=== PATIENT | female | born 1960 | race African-American/Black ===

== ENCOUNTER → 2017-01-31 | Outpatient (CLI) | payer MEDICARE, OTHER ==
[2015-11-08 15:00] VITALS: BP 131/78
[~2017-01-31] MED LIST: AMLO5TAB2 PO; ATOR20TA58 PO; CEFP200T PO; GABA-585 PO; GABA-586 PO; LEVO50TA5 PO; LISI10TA2 PO; LISI40TA PO; MELO7.5T29 PO; METO-269 PO; OXYC-317 PO; OXYC-323 PO; SENN-37 PO
--- NOTE | 2017-01-31 13:07 | RAD ---
Indication pain. History of fracture. Pre-op. Possible knee replacement. AP oblique and lateral views of the left knee were obtained. Note is made of a similar examination 09/28/2014. Bony mineralization appears normal. Acute finding is not seen. Advanced degenerative changes are not apparent on plain films
== END | disposition home or self-care (01) ==
LOC: RAD 11:49
PROVIDERS: ATTEND Internal Medicine
DX: M25.562 Pain in left knee (principal)
CPT/HCPCS: 73562

== ENCOUNTER 2017-05-04 15:04 | Inpatient (IN) | payer MEDICARE ==
[~2017-05-04] VITALS: Ht 154.9 cm; Wt 58.1 kg
[2017-05-04] MEDS ORDERED: IV NORMAL SALINE 1000ML BAG 1,000 ML IV ONE ×2 (15:30→17:30)
--- NOTE | 2017-05-04 15:36 | PHYS DOC ---
Past Medical History Past Medical History: Arthritis, CVA, High Cholesterol, Hypertension, Hypothyroid, Other Additional Past Medical Histor: FX LEFT WRIST, Past Surgical History: Appendectomy, Additional Past Surgical Histo: Unknown Alcohol Use: None Drug Use: None Adult General Chief Complaint Chief Complaint: UPPER EXTREMITY PAIN HPI HPI Patient is a 56 year old F who presents with numbness and tingling to her left side. Patient has a history of a previous stroke 5 years ago that left deficits to her left side. Patient states her last known well was last night when she went to bed. Patient states she woke up this morning around 7 AM with numbness and tingling to her left lower leg. As the day progressed she had worsening numbness and tingling to her left lower leg and left upper arm. Our on 11 AM patient states she developed some numbness and tingling to her right hand that lasted for less than an hour. This afternoon the patient got concerned and therefore called EMS to be evaluated in the emergency room. Currently the emergency room patient complains of numbness to her left upper arm and left lower leg with resolution of the right hand. Patient declined any chest pain or shortness of breath. Patient declined any nausea/vomiting/diarrhea. Patient denied any fevers. Patient had no other complaints. Review of Systems Review of Systems GEN: Denies fevers, chills, sweats HEENT: Denies blurred vision, sore throat CV: Denies chest pain RESP: Denies shortness of air, cough GI: Denies n/v/d NEURO: Numbness and tingling to left side MSK: Denies weakness, joint pain/swelling All other systems were reviewed and found to be within normal limits, except as documented in this note. Current Medications Current Medications Current Medications Medications (Trade) Dose Ordered Sig/Demond Start Time Stop Time Status Last Admin Dose Admin Acetaminophen (Tylenol) 650 mg PRN Q4HRS PRN 05/04/17 17:30 05/05/17 17:29 Ceftriaxone Sodium 50 ml @ 100 mls/hr 1X ONCE 05/04/17 16:45 05/04/17 17:14 DC 05/04/17 16:57 100 MLS/HR Fentanyl Citrate (Fentanyl 2ml Vial) 50 mcg PRN Q2HR PRN 05/04/17 17:30 05/05/17 17:29 Info (Do NOT chart on this entry -- for MONITORING) 1 each PRN DAILY PRN 05/04/17 16:00 05/06/17 15:59 Iohexol (Omnipaque 300 Mg/ml) 75 ml 1X ONCE 05/04/17 16:00 05/04/17 16:01 DC 05/04/17 16:36 75 ML Ondansetron HCl (Zofran) 4 mg PRN Q8HRS PRN 05/04/17 17:30 05/05/17 17:29 Sodium Chloride 1,000 ml @ 1,000 mls/hr 1X ONCE 05/04/17 17:30 05/04/17 18:29 05/04/17 17:36 1,000 MLS/HR Vancomycin HCl (Vanco Per Pharmacy) 1 each PRN DAILY PRN 05/04/17 16:45 UNV Vancomycin HCl 1.25 gm/Dextrose/ Sodium Chloride 250 ml @ 166.667 mls/hr 1X ONCE 05/04/17 16:45 05/04/17 18:14 05/04/17 17:33 166.667 MLS/HR Allergies Allergies Allergies Coded Allergies Type Severity Reaction Last Updated Verified Penicillins Allergy Intermediate 11/07/15 Yes apple Allergy Intermediate 11/06/15 Yes orange juice Allergy Intermediate 11/15/14 Yes strawberry Allergy Intermediate 11/15/14 Yes Physical Exam Physical Exam GEN.: Mild distress. Alert and oriented. HEENT: Head is normocephalic, atraumatic, pupils are equal and reactive bilaterally, extraocular muscles intact bilaterally NECK: Supple. LUNGS: CTAB. HEART: Tachycardia, S1, S2 present. Peripheral pulses intact ABDOMEN: Soft, nontender. Positive bowel sounds. EXTREMITIES: Without any cyanosis. 3/5 muscle strength to the proximal and distal of the left upper extremity and left lower extremity NEUROLOGIC: Normal speech, normal tone, cranial nerves II through XII are grossly intact without any focal neurological deficits PSYCHIATRIC: Normal affect, normal mood. SKIN: No ulcerations Current Patient Data Vital Signs Vital Signs Date Time Temp Pulse Resp B/P (MAP) Pulse Ox O2 Delivery O2 Flow Rate FiO2 05/04/17 16:24 112 20 115/59 (77) 100 Room Air 05/04/17 15:05 97.3 97.3 Lab Values Laboratory Tests Test 05/04/17 13:12 05/04/17 13:15 05/04/17 15:07 05/04/17 15:27 White Blood Count 8.2 x10^3/uL (4.0-11.0) Red Blood Count 3.89 x10^6/uL (3.50-5.40) Hemoglobin 11.5 g/dL (12.0-15.5) L Hematocrit 35.0 % (36.0-47.0) L Mean Corpuscular Volume 90 fL (79-100) Mean Corpuscular Hemoglobin 29 pg (25-35) Mean Corpuscular Hemoglobin Concent 33 g/dL (31-37) Red Cell Distribution Width 19.5 % (11.5-14.5) H Platelet Count 655 x10^3/uL (140-400) H Neutrophils (%) (Auto) 76 % (31-73) H Lymphocytes (%) (Auto) 17 % (24-48) L Monocytes (%) (Auto) 6 % (0-9) Eosinophils (%) (Auto) 0 % (0-3) Basophils (%) (Auto) 0 % (0-3) Neutrophils # (Auto) 6.2 x10^3uL (1.8-7.7) Lymphocytes # (Auto) 1.4 x10^3/uL (1.0-4.8) Monocytes # (Auto) 0.5 x10^3/uL (0.0-1.1) Eosinophils # (Auto) 0.0 x10^3/uL (0.0-0.7) Basophils # (Auto) 0.0 x10^3/uL (0.0-0.2) Sodium Level 141 mmol/L (136-145) Potassium Level 3.6 mmol/L (3.5-5.1) Chloride Level 103 mmol/L (98-107) Carbon Dioxide Level 23 mmol/L (21-32) Anion Gap 15 (6-14) H Blood Urea Nitrogen 15 mg/dL (7-20) Creatinine 1.0 mg/dL (0.6-1.0) Estimated GFR (Cockcroft-Gault) 69.1 BUN/Creatinine Ratio 15 (6-20) Glucose Level 119 mg/dL (70-99) H Lactic Acid Level 3.0 mmol/L (0.4-2.0) H Calcium Level 7.9 mg/dL (8.5-10.1) L Total Bilirubin 0.4 mg/dL (0.2-1.0) Aspartate Amino Transferase (AST) 57 U/L (15-37) H Alanine Aminotransferase (ALT) 40 U/L (14-59) Alkaline Phosphatase 197 U/L (46-116) H Troponin I Quantitative < 0.017 ng/mL (0.000-0.055) Total Protein 6.0 g/dL (6.4-8.2) L Albumin 2.7 g/dL (3.4-5.0) L Albumin/Globulin Ratio 0.8 (1.0-1.7) L Lipase 173 U/L (73-393) Urine Collection Type Unknown Urine Color Maren Urine Clarity Clear Urine pH 5.5 Urine Specific [place] >=1.030 Urine Protein Negative mg/dL (NEG-TRACE) Urine Glucose (UA) Negative mg/dL (NEG) Urine Ketones (Stick) Trace mg/dL (NEG) Urine Blood Negative (NEG) Urine Nitrite Negative (NEG) Urine Bilirubin Small (NEG) Urine Urobilinogen Dipstick 1.0 mg/dL (0.2 mg/dL) Urine Leukocyte Esterase Negative (NEG) Urine RBC 0 /HPF (0-2) Urine WBC 0 /HPF (0-4) Urine Squamous Epithelial Cells None /LPF Urine Bacteria Few /HPF (0-FEW) Urine Mucus Slight /LPF Glucose (Fingerstick) 115 mg/dL (70-99) H Prothrombin Time 12.1 SEC (11.7-14.0) Prothrombin Time INR 1.0 (0.8-1.1) Laboratory Tests 05/04/17 13:12 Laboratory Tests 05/04/17 13:12 EKG EKG 1527: EKG shows sinus tachycardia rate of 124 no STEMI[] Radiology/Procedures Radiology/Procedures CTA head and neck NAD[] Chest x-ray NAD Course & Med Decision Making Course & Med Decision Making Pertinent Labs and Imaging studies reviewed. (See chart for details) ED course: Patient was seen and examined upon arrival emergency room basic blood work was ordered along with a CTA head and neck and chest x-ray Stroke activation was not done because the patient was outside anytime window and her last known well was last night therefore not a candidate for TPA On reexamination patient still having left-sided paresthesias and updated patient on CT results and lab results and plan to admit 1728:Discussed CC/HP/PMH with Dr. Mireles and recommends admit and consult Dr. Musa MDM: After reviewing the chart, CC/HPI/PMH, physical exam, [lab results], [ radiological results], I do not believe the patient has had an acute stroke warranting TPA however since the patient still having persistent left-sided paresthesias will admit for further evaluation and management. Patient has elevated lactic acid of unknown significance and no known source therefore the patient was prophylactically treated with antiemetics and IV fluids and repeat lactic acid. [] Dragon Disclaimer Dragon Disclaimer This electronic medical record was generated, in whole or in part, using a voice recognition dictation system. Departure Departure Impression: Primary Impression: Lactic acidosis Additional Impressions: Paresthesias Tachycardia Admitting Physician: Nathan Mireles Condition: STABLE Referrals: NATHAN MIRELES MD (PCP) Problem Qualifiers KATHY MORRISSEY DO May 04, 2017 15:36
[2017-05-04 15:44] LABS: BILIRUBIN,URINE SMALL (NEG); GLUCOSE,URINE NEGATIVE (NEG); NITRITE,URINE NEGATIVE (NEG); PH,URINE 5.5; PROTEIN,URINE NEGATIVE (NEG-TRACE)
[2017-05-04 15:47] LABS: BASO % 0 % (0-3); EOS % 0 % (0-3); HEMOGLOBIN 11.5 g/dL (12.0-15.5); LYMPH # 1.4 x10^3/uL (1.0-4.8); LYMPH % 17 % (24-48); MEAN CORPUSCULAR HEMOGLOBIN 29 pg (25-35); MEAN CORPUSCULAR HGB CONC 33 g/dL (31-37); MEAN CORPUSCULAR VOLUME 90 fL (79-100); MONO % 6 % (0-9); NEUT % 76 % (31-73); PLATELET COUNT 655 x10^3/uL (140-400); RED BLOOD COUNT 3.89 x10^6/uL (3.50-5.40); RED CELL DISTRIBUTION WIDTH 19.5 % (11.5-14.5); WHITE BLOOD COUNT 8.2 x10^3/uL (4.0-11.0)
--- NOTE | 2017-05-04 15:47 | RAD ---
Portable chest, 05/04/2017: History: Weakness Comparison is made to a study from 11/04/2015. The heart size and pulmonary vascularity are normal. There is mild tortuosity of the thoracic aorta. No pulmonary infiltrates are seen. There is no evidence of pleural fluid. The bony structures are demineralized. IMPRESSION: No acute cardiopulmonary abnormality is detected.
[2017-05-04 15:55] LABS: PROTHROMBIN TIME PATIENT 12.1 SEC (11.7-14.0)
[2017-05-04 16:00] LABS: BACTERIA,URINE FEW /HPF (0-FEW); RBC,URINE 0 /HPF (0-2); WBC,URINE 0 /HPF (0-4)
[2017-05-04] MEDS ORDERED: CONTRAST GIVEN MC PRN (16:00)
[2017-05-04] MEDS ORDERED: IOHEXOL 300 MG/ML 100ML VIAL. IV ONE (16:00)
[2017-05-04 16:02] LABS: CALCIUM 7.9 mg/dL (8.5-10.1); GFR 69.1; POTASSIUM 3.6 mmol/L (3.5-5.1)
[2017-05-04 16:07] LABS: ALBUMIN 2.7 g/dL (3.4-5.0); ALBUMIN/GLOBULIN RATIO 0.8 (1.0-1.7); TOTAL BILIRUBIN 0.4 mg/dL (0.2-1.0)
--- NOTE | 2017-05-04 16:08 | EKG ---
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 Electronically Signed On 05-18-2017 10:16:22 REVIEW ASSISTANT by Ford Miranda
[2017-05-04] MEDS ORDERED: VANCOMYCIN 1.25 GM in IV DEXTROSE 5 %-0.2 % NACL 250 ML IV ONE (16:45)
--- NOTE | 2017-05-04 17:11 | RAD ---
CTA of the head and neck with contrast, 05/04/2017: History: CVA, left arm tingling Multidetector CT imaging was performed following an IV bolus injection of iodinated contrast material. Multiplanar reconstructions were produced including MIP images as well as 3-D volume rendered reconstructions of the major arteries. There is mild atherosclerotic plaquing of the aortic arch. The origins of the cervicocephalic arteries from the aortic arch are widely patent. Both common carotid arteries in the neck are widely patent. There is mild calcific plaquing at both carotid bifurcations, greater on the right than the left. There is approximately 25% narrowing of the diameter of the origin of the right internal carotid artery. There is only slight narrowing of the proximal left internal carotid artery. The distal internal carotid arteries in the upper neck are widely patent bilaterally. There is mild calcific plaquing involving the cavernous segments of the distal internal carotid arteries without evidence of high-grade stenosis. The anterior cerebral and middle cerebral arteries and their major branches are unremarkable bilaterally. No significant stenotic or occlusive disease is seen. There is no evidence of aneurysm. There is mild calcific plaquing at the origin of the left vertebral artery without significant stenosis. Both vertebral arteries in the neck are widely patent. The left vertebral artery is dominant. The basilar artery is unremarkable. The posterior cerebral arteries in their major branches are unremarkable. IMPRESSION: 1. Mild calcific plaquing at the carotid bifurcations, right greater than left with only mild associated narrowing of the internal carotid origins. 2. No significant intracranial arterial abnormality is detected. PQRS Compliance Statement: One or more of the following individualized dose reduction techniques were utilized for this examination: 1. Automated exposure control 2. Adjustment of the mA and/or kV according to patient size 3. Use of iterative reconstruction technique Note: Stenosis calculations for CTA, MRA and conventional angiography are based upon determination of the distal ICA diameter in accordance with the NASCET methodology. Stenosis calculations for Doppler studies are derived from validated velocity criteria which are known to correlate with NASCET methodology of determining stenosis.
[2017-05-04] MEDS ORDERED: ACETAMINOPHEN 325 MG TABLET. PO PRN (17:30)
[2017-05-04] MEDS ORDERED: ONDANSETRON PF 4 MG/2 ML VIAL. IV PRN (17:30)
[2017-05-04] MEDS ORDERED: MAGNESIUM HYDROXIDE 2,400 MG/30 ML ORAL.SUSP. PO PRN (18:15)
--- NOTE | 2017-05-04 18:21 | PDOC ---
Provider Note Provider Note history and physical dictated # [id number] GLO SPEARS MD May 04, 2017 18:21
[2017-05-04] MEDS: VANCOMYCIN PER PHARMACY MC PRN (18:56)
[2017-05-04] MEDS: ASPIRIN 325 MG TABLET PO SCH (19:00)
--- NOTE | 2017-05-04 19:11 | HP ---
ADMIT DATE: 05/04/2017 HISTORY OF PRESENT ILLNESS: The patient is a 56-year-old white female with a history of a cerebrovascular accident with late effects with spastic left-sided hemiparesis in 2013 with hypertension, hyperlipidemia, hypothyroidism, osteoarthritis and also neuropathic pain, who was admitted to [facility] at the Emergency Room on 05/04/2017. She woke up this morning, had some weakness in her left upper and left lower extremity with some difficulty walking. There is some numbness and tingling also. She had some transient numbness and tingling in the right upper extremity also noted by the Emergency Room doctor, which resolved. The patient actually was supposed to see Dr. Mireles in the office today, but instead went to the Emergency Room for the aforementioned symptoms. She said she had a fever a couple days ago. Denies any cough, dysuria, abdominal pain or diarrhea. She was noted to have a lactic acid level of 3.0. Blood cultures were ordered and she received a dose of IV vancomycin as well as Rocephin in the Emergency Room. Chest x-ray was unremarkable. Urinalysis showed no pyuria and she had a CAT scan of the head and neck with contrast, which showed mild calcific plaquing in the carotid bifurcation, right greater than left and no significant intracranial arterial abnormality was detected. She notes some difficulty with moving her left arm, although this is spastic and she has little discomfort in the left shoulder area with some minimal tenderness. There is no redness or swelling involving the left shoulder. She was admitted to [facility] for further evaluation of the aforementioned symptoms. ALLERGIES: PENICILLIN, APPLE, ORANGE JUICE, AND STRAWBERRY. MEDICATIONS: Prior to admission is rather unclear, but I believe based on her previous admission last year, she was taking amlodipine 5 mg every day, atorvastatin 20 mg at bedtime, gabapentin 300 mg b.i.d., levothyroxine 50 mcg every day and metoprolol ER 50 mg every day. PAST MEDICAL HISTORY: Significant for cerebrovascular accident with spastic left-sided hemiparesis in 2013, hypertension, hypothyroidism, hyperlipidemia, osteoarthritis and neuropathic pain. PAST SURGICAL HISTORY: She had a colon resection for an abscess in the past, section x 3, appendectomy, and tonsillectomy. SOCIAL HISTORY: She does not drink alcohol nor does she smoke cigarettes. She is not and I believe she uses a platform cane to ambulate. FAMILY HISTORY: Noncontributory. REVIEW OF SYSTEMS: GENERAL: She had some fever a couple days ago. CARDIOVASCULAR: No chest pain. PULMONARY: No cough or shortness of breath. GASTROINTESTINAL: No dysuria. NEUROLOGIC: She had some left-sided weakness. ENDOCRINE: No diabetes mellitus. SKIN: No rashes. The rest of systems reviewed are negative except as stated in history of present illness. PHYSICAL EXAMINATION: VITAL SIGNS: Temperature is 97.3 degrees, apical pulse 112, respiratory rate 20, blood pressure 115/59, oxygen saturation 100% on room air. HEENT: Eyes: Gaze is conjugate. Mouth: Tongue is midline. HEART: Reveals an S1, S2. There is no S3 or murmur. LUNGS: Clear. ABDOMEN: Soft with no hepatosplenomegaly, masses or tenderness. EXTREMITIES: Lower extremities without edema. SKIN: No rashes. NEUROLOGIC: Shows she has got good 5/5 strength in right upper and right lower extremity. She has left-sided spastic hemiparesis, especially involving the left upper extremity as well as in the left hand. She has some weakness in the left lower extremity. She had some discomfort in her left knee, she said earlier and was wearing a knee support, but there is no erythema or swelling involving the left knee. She is able to bend it well. LABORATORY DATA: On review of her labs, white count 8.2, hemoglobin 11.5, platelet count 655,000, 76 polys and 17 lymphocytes. Sodium 141, potassium 3.6, chloride 103, total CO2 23, BUN 15, creatinine 1.0, blood sugar 119. Lactic acid level was increased at 3.0. Liver function tests showed a total bilirubin 0.4, SGOT of 57, SGPT of 40, alkaline phosphatase 197. Troponin levels less than 0.017, albumin 2.7. Urinalysis showed 0 white cells and 0 red blood cells. Chest x-ray showed no acute abnormality. CAT scan of the head and neck, angiogram as mentioned above. EKG showed baseline artifact with no acute change. ASSESSMENT: 1. Acute onset left-sided weakness. Certainly need to rule out new cerebrovascular accident. 2. 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 3. Hypertension. 4. Hyperlipidemia. 5. Hypothyroidism. 6. Osteoarthritis. 7. Anemia. 8. Elevated lactic acid level. Certainly need to rule out sepsis. PLAN: At this time is to consult Dr. Sheldon Smallwood and Dr. Jasmine. Blood cultures x 2 have been ordered and the patient will be continued with IV antibiotics. Consult Dr. Sheldon Smallwood for Infectious Disease and Dr. Musa. Repeat a CBC and BMP tomorrow. We will also get an ultrasound of the abdomen because she does have some mildly elevated liver function tests. We will continue with most of her home medicines, but hold off on the blood pressure medicines as blood pressure is little bit on the low side. We will order physical and occupational therapy, SCDs for deep vein thrombosis prophylaxis. GLO MIRELES MD DR: HERMES/serafin JOB#: [id number] / [id number]
[2017-05-04 19:55] VITALS: BP 107/66
[2017-05-04] MEDS ORDERED: ASPI-630 PO (20:32)
[2017-05-04] MEDS: ATORVASTATIN CALCIUM 20 MG TABLET PO SCH (22:21)
[2017-05-04] MEDS: GABAPENTIN 300 MG CAPSULE. PO SCH (22:21)
[2017-05-04] MEDS: fentaNYL PF VIAL 100 MCG/2 ML VIAL IV PRN (22:22)
[2017-05-04 23:08] VITALS: BP 114/63
[2017-05-05] MEDS ORDERED: INFLUENZA VAX SCREEN BY RX. MC ONE (01:45)
[2017-05-05] MEDS: ONDANSETRON PF 4 MG/2 ML VIAL. IV PRN (02:55)
[2017-05-05 03:05] VITALS: BP 116/67
[2017-05-05] MEDS: LEVOTHYROXINE 50 MCG TABLET PO SCH (06:11)
[2017-05-05 07:19] VITALS: BP 108/66
[2017-05-05 07:43] LABS: BASO % 0 % (0-3); EOS % 0 % (0-3); HEMATOCRIT 34.5 % (36.0-47.0); HEMOGLOBIN 11.4 g/dL (12.0-15.5); LYMPH # 1.1 x10^3/uL (1.0-4.8); LYMPH % 13 % (24-48); MEAN CORPUSCULAR HEMOGLOBIN 30 pg (25-35); MEAN CORPUSCULAR HGB CONC 33 g/dL (31-37); MEAN CORPUSCULAR VOLUME 90 fL (79-100); MONO % 6 % (0-9); NEUT % 81 % (31-73); PLATELET COUNT 575 x10^3/uL (140-400); RED BLOOD COUNT 3.85 x10^6/uL (3.50-5.40); RED CELL DISTRIBUTION WIDTH 19.9 % (11.5-14.5); WHITE BLOOD COUNT 8.5 x10^3/uL (4.0-11.0)
[2017-05-05 07:59] LABS: CALCIUM 7.2 mg/dL (8.5-10.1); CREATININE 0.7 mg/dL (0.6-1.0); GFR 104.4
[2017-05-05] MEDS ORDERED: FLU VACC QS2017-18 (36MOS+)/PF 0.5 ML SYRINGE. VAX IM ONE (09:00)
[2017-05-05] MEDS: fentaNYL PF VIAL 100 MCG/2 ML VIAL IV PRN (10:13)
[2017-05-05] MEDS: GABAPENTIN 300 MG CAPSULE. PO SCH ×2 (10:14→20:57)
[2017-05-05] MEDS: ASPIRIN 325 MG TABLET PO SCH (10:14)
[2017-05-05 11:39] VITALS: BP 105/54
[2017-05-05] MEDS: VANCOMYCIN PER PHARMACY MC PRN (12:29)
[2017-05-05] MEDS ORDERED: POTASSIUM CHLORIDE 20 MEQ TABLET.ER. PO ONE ×2 (12:45→19:30)
--- NOTE | 2017-05-05 12:50 | PDOC ---
PROGRESS NOTES Subjective Subjective feels better. had chest pain earlier but says her chest was tender to touch at the time. afebrile. lab reviewed. lactic acid level normal. wbc normal. potassium low 3.0. has a tachycardia. Objective Objective Vital Signs Date Time Temp Pulse Resp B/P (MAP) Pulse Ox O2 Delivery O2 Flow Rate FiO2 05/05/17 11:39 97.6 71 19 105/54 (71) 97 Room Air 97.6 05/05/17 10:13 2.0 Intake and Output 05/05/17 07:00 Intake Total 390 ml Output Total 200 ml Balance 190 ml Intake Oral 390 ml Output Urine Total 200 ml # Voids 2 Physical Exam Abdomen: Soft Heart: Regular rate, Normal S1, Normal S2 Extremities: No edema General: Alert HEENT: Atraumatic Lungs: Clear to auscultation Neuro: Normal speech, Other (spastic left hemiparesis) Psych/Mental Status: Mental status NL Skin: No rashes Assessment Assessment Problems1. Acute onset left-sided weakness.05/04/17 2. 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 3. Hypertension. 4. Hyperlipidemia. 5. Hypothyroidism. 6. Osteoarthritis. 7. Anemia. 8. Elevated lactic acid level now normal hypokalemia Medical Problems: (1) Lactic acidosis Status: Acute (2) Paresthesias Status: Acute (3) Tachycardia Status: Acute Plan Plan of Care await blood culture report continue iv vancomycin and rocephin PT and OT ID and neurology consults increased aspirin to 325 mg daily resume metoprolol continue atorvastatin replete kcl Comment Review of Relevant I have reviewed the following items maryam (where applicable) has been applied. Labs Laboratory Tests Test 05/04/17 13:12 05/04/17 13:15 05/04/17 15:07 05/04/17 15:27 White Blood Count 8.2 x10^3/uL (4.0-11.0) Red Blood Count 3.89 x10^6/uL (3.50-5.40) Hemoglobin 11.5 g/dL (12.0-15.5) Hematocrit 35.0 % (36.0-47.0) Mean Corpuscular Volume 90 fL (79-100) Mean Corpuscular Hemoglobin 29 pg (25-35) Mean Corpuscular Hemoglobin Concent 33 g/dL (31-37) Red Cell Distribution Width 19.5 % (11.5-14.5) Platelet Count 655 x10^3/uL (140-400) Neutrophils (%) (Auto) 76 % (31-73) Lymphocytes (%) (Auto) 17 % (24-48) Monocytes (%) (Auto) 6 % (0-9) Eosinophils (%) (Auto) 0 % (0-3) Basophils (%) (Auto) 0 % (0-3) Neutrophils # (Auto) 6.2 x10^3uL (1.8-7.7) Lymphocytes # (Auto) 1.4 x10^3/uL (1.0-4.8) Monocytes # (Auto) 0.5 x10^3/uL (0.0-1.1) Eosinophils # (Auto) 0.0 x10^3/uL (0.0-0.7) Basophils # (Auto) 0.0 x10^3/uL (0.0-0.2) Sodium Level 141 mmol/L (136-145) Potassium Level 3.6 mmol/L (3.5-5.1) Chloride Level 103 mmol/L (98-107) Carbon Dioxide Level 23 mmol/L (21-32) Anion Gap 15 (6-14) Blood Urea Nitrogen 15 mg/dL (7-20) Creatinine 1.0 mg/dL (0.6-1.0) Estimated GFR (Cockcroft-Gault) 69.1 BUN/Creatinine Ratio 15 (6-20) Glucose Level 119 mg/dL (70-99) Lactic Acid Level 3.0 mmol/L (0.4-2.0) Calcium Level 7.9 mg/dL (8.5-10.1) Total Bilirubin 0.4 mg/dL (0.2-1.0) Aspartate Amino Transf (AST/SGOT) 57 U/L (15-37) Alanine Aminotransferase (ALT/SGPT) 40 U/L (14-59) Alkaline Phosphatase 197 U/L (46-116) Troponin I Quantitative < 0.017 ng/mL (0.000-0.055) Total Protein 6.0 g/dL (6.4-8.2) Albumin 2.7 g/dL (3.4-5.0) Albumin/Globulin Ratio 0.8 (1.0-1.7) Lipase 173 U/L (73-393) Urine Collection Type Unknown Urine Color Maren Urine Clarity Clear Urine pH 5.5 Urine Specific [place] >=1.030 Urine Protein Negative mg/dL (NEG-TRACE) Urine Glucose (UA) Negative mg/dL (NEG) Urine Ketones (Stick) Trace mg/dL (NEG) Urine Blood Negative (NEG) Urine Nitrite Negative (NEG) Urine Bilirubin Small (NEG) Urine Urobilinogen Dipstick 1.0 mg/dL (0.2 mg/dL) Urine Leukocyte Esterase Negative (NEG) Urine RBC 0 /HPF (0-2) Urine WBC 0 /HPF (0-4) Urine Squamous Epithelial Cells None /LPF Urine Bacteria Few /HPF (0-FEW) Urine Mucus Slight /LPF Glucose (Fingerstick) 115 mg/dL (70-99) Prothrombin Time 12.1 SEC (11.7-14.0) Prothromb Time International Ratio 1.0 (0.8-1.1) Test 05/04/17 19:30 05/05/17 07:00 Lactic Acid Level 0.8 mmol/L (0.4-2.0) White Blood Count 8.5 x10^3/uL (4.0-11.0) Red Blood Count 3.85 x10^6/uL (3.50-5.40) Hemoglobin 11.4 g/dL (12.0-15.5) Hematocrit 34.5 % (36.0-47.0) Mean Corpuscular Volume 90 fL (79-100) Mean Corpuscular Hemoglobin 30 pg (25-35) Mean Corpuscular Hemoglobin Concent 33 g/dL (31-37) Red Cell Distribution Width 19.9 % (11.5-14.5) Platelet Count 575 x10^3/uL (140-400) Neutrophils (%) (Auto) 81 % (31-73) Lymphocytes (%) (Auto) 13 % (24-48) Monocytes (%) (Auto) 6 % (0-9) Eosinophils (%) (Auto) 0 % (0-3) Basophils (%) (Auto) 0 % (0-3) Neutrophils # (Auto) 6.9 x10^3uL (1.8-7.7) Lymphocytes # (Auto) 1.1 x10^3/uL (1.0-4.8) Monocytes # (Auto) 0.5 x10^3/uL (0.0-1.1) Eosinophils # (Auto) 0.0 x10^3/uL (0.0-0.7) Basophils # (Auto) 0.0 x10^3/uL (0.0-0.2) Sodium Level 141 mmol/L (136-145) Potassium Level 3.0 mmol/L (3.5-5.1) Chloride Level 106 mmol/L (98-107) Carbon Dioxide Level 22 mmol/L (21-32) Anion Gap 13 (6-14) Blood Urea Nitrogen 9 mg/dL (7-20) Creatinine 0.7 mg/dL (0.6-1.0) Estimated GFR (Cockcroft-Gault) 104.4 Glucose Level 88 mg/dL (70-99) Calcium Level 7.2 mg/dL (8.5-10.1) Laboratory Tests Test 05/04/17 13:12 05/04/17 13:15 05/04/17 15:07 05/04/17 15:27 White Blood Count 8.2 x10^3/uL (4.0-11.0) Red Blood Count 3.89 x10^6/uL (3.50-5.40) Hemoglobin 11.5 g/dL (12.0-15.5) Hematocrit 35.0 % (36.0-47.0) Mean Corpuscular Volume 90 fL (79-100) Mean Corpuscular Hemoglobin 29 pg (25-35) Mean Corpuscular Hemoglobin Concent 33 g/dL (31-37) Red Cell Distribution Width 19.5 % (11.5-14.5) Platelet Count 655 x10^3/uL (140-400) Neutrophils (%) (Auto) 76 % (31-73) Lymphocytes (%) (Auto) 17 % (24-48) Monocytes (%) (Auto) 6 % (0-9) Eosinophils (%) (Auto) 0 % (0-3) Basophils (%) (Auto) 0 % (0-3) Neutrophils # (Auto) 6.2 x10^3uL (1.8-7.7) Lymphocytes # (Auto) 1.4 x10^3/uL (1.0-4.8) Monocytes # (Auto) 0.5 x10^3/uL (0.0-1.1) Eosinophils # (Auto) 0.0 x10^3/uL (0.0-0.7) Basophils # (Auto) 0.0 x10^3/uL (0.0-0.2) Sodium Level 141 mmol/L (136-145) Potassium Level 3.6 mmol/L (3.5-5.1) Chloride Level 103 mmol/L (98-107) Carbon Dioxide Level 23 mmol/L (21-32) Anion Gap 15 (6-14) Blood Urea Nitrogen 15 mg/dL (7-20) Creatinine 1.0 mg/dL (0.6-1.0) Estimated GFR (Cockcroft-Gault) 69.1 BUN/Creatinine Ratio 15 (6-20) Glucose Level 119 mg/dL (70-99) Lactic Acid Level 3.0 mmol/L (0.4-2.0) Calcium Level 7.9 mg/dL (8.5-10.1) Total Bilirubin 0.4 mg/dL (0.2-1.0) Aspartate Amino Transf (AST/SGOT) 57 U/L (15-37) Alanine Aminotransferase (ALT/SGPT) 40 U/L (14-59) Alkaline Phosphatase 197 U/L (46-116) Troponin I Quantitative < 0.017 ng/mL (0.000-0.055) Total Protein 6.0 g/dL (6.4-8.2) Albumin 2.7 g/dL (3.4-5.0) Albumin/Globulin Ratio 0.8 (1.0-1.7) Lipase 173 U/L (73-393) Urine Collection Type Unknown Urine Color Maren Urine Clarity Clear Urine pH 5.5 Urine Specific [place] >=1.030 Urine Protein Negative mg/dL (NEG-TRACE) Urine Glucose (UA) Negative mg/dL (NEG) Urine Ketones (Stick) Trace mg/dL (NEG) Urine Blood Negative (NEG) Urine Nitrite Negative (NEG) Urine Bilirubin Small (NEG) Urine Urobilinogen Dipstick 1.0 mg/dL (0.2 mg/dL) Urine Leukocyte Esterase Negative (NEG) Urine RBC 0 /HPF (0-2) Urine WBC 0 /HPF (0-4) Urine Squamous Epithelial Cells None /LPF Urine Bacteria Few /HPF (0-FEW) Urine Mucus Slight /LPF Glucose (Fingerstick) 115 mg/dL (70-99) Prothrombin Time 12.1 SEC (11.7-14.0) Prothromb Time International Ratio 1.0 (0.8-1.1) Test 05/04/17 19:30 05/05/17 07:00 Lactic Acid Level 0.8 mmol/L (0.4-2.0) White Blood Count 8.5 x10^3/uL (4.0-11.0) Red Blood Count 3.85 x10^6/uL (3.50-5.40) Hemoglobin 11.4 g/dL (12.0-15.5) Hematocrit 34.5 % (36.0-47.0) Mean Corpuscular Volume 90 fL (79-100) Mean Corpuscular Hemoglobin 30 pg (25-35) Mean Corpuscular Hemoglobin Concent 33 g/dL (31-37) Red Cell Distribution Width 19.9 % (11.5-14.5) Platelet Count 575 x10^3/uL (140-400) Neutrophils (%) (Auto) 81 % (31-73) Lymphocytes (%) (Auto) 13 % (24-48) Monocytes (%) (Auto) 6 % (0-9) Eosinophils (%) (Auto) 0 % (0-3) Basophils (%) (Auto) 0 % (0-3) Neutrophils # (Auto) 6.9 x10^3uL (1.8-7.7) Lymphocytes # (Auto) 1.1 x10^3/uL (1.0-4.8) Monocytes # (Auto) 0.5 x10^3/uL (0.0-1.1) Eosinophils # (Auto) 0.0 x10^3/uL (0.0-0.7) Basophils # (Auto) 0.0 x10^3/uL (0.0-0.2) Sodium Level 141 mmol/L (136-145) Potassium Level 3.0 mmol/L (3.5-5.1) Chloride Level 106 mmol/L (98-107) Carbon Dioxide Level 22 mmol/L (21-32) Anion Gap 13 (6-14) Blood Urea Nitrogen 9 mg/dL (7-20) Creatinine 0.7 mg/dL (0.6-1.0) Estimated GFR (Cockcroft-Gault) 104.4 Glucose Level 88 mg/dL (70-99) Calcium Level 7.2 mg/dL (8.5-10.1) Medications Current Medications Sodium Chloride 1,000 ml @ 1,000 mls/hr 1X ONCE IV Last administered on 05/04 16:12; Start 05/04/17 at 15:30; Stop 05/04/17 at 16:29; Status DC Iohexol (Omnipaque 300 Mg/ml) 75 ml 1X ONCE IV Last administered on 16:36; Start 05/04/17 at 16:00; Stop 05/04/17 at 16:01; Status DC Info (Do NOT chart on this entry -- for MONITORING) 1 each PRN DAILY PRN MC SEE COMMENTS; Start 05/04/17 at 16:00; Stop 05/06/17 at 15:59 Vancomycin HCl (Vanco Per Pharmacy) 1 each PRN DAILY PRN MC SEE COMMENTS Last administered on 05/05/17 12:29; Start 05/04/17 at 16:45 Ceftriaxone Sodium 50 ml @ 100 mls/hr 1X ONCE IV Last administered on 16:57; Start 05/04/17 at 16:45; Stop 05/04/17 at 17:14; Status DC Vancomycin HCl 1.25 gm/Dextrose/ Sodium Chloride 250 ml @ 166.667 mls/hr 1X ONCE IV Last administered on 05/04/17 17:33; Start 05/04/17 at 16:45; Stop 05/04/17 at 18:14; Status DC Sodium Chloride 1,000 ml @ 1,000 mls/hr 1X ONCE IV Last administered on 05/04 17:36; Start 05/04/17 at 17:30; Stop 05/04/17 at 18:29; Status DC Ondansetron HCl (Zofran) 4 mg PRN Q8HRS PRN IV NAUSEA/VOMITING; Start at 17:30; Stop 05/05/17 at 17:29 Fentanyl Citrate (Fentanyl 2ml Vial) 50 mcg PRN Q2HR PRN IV PAIN Last administered on 05/05/17 10:13; Start 05/04/17 at 17:30; Stop 05/05/17 at 17 :29 Acetaminophen (Tylenol) 650 mg PRN Q4HRS PRN PO FEVER; Start 05/04/17 at 17:30 ; Stop 05/05/17 at 17:29 Gabapentin (Neurontin) 300 mg BID PO Last administered on 05/05/17 10:14; Start 05/04/17 at 21:00 Levothyroxine Sodium (Synthroid) 50 mcg DAILY06 PO Last administered on 06:11; Start 05/05/17 at 06:00 Acetaminophen (Tylenol) 650 mg PRN Q4HRS PRN PO MILD PAIN / TEMP; Start at 18:15 Magnesium Hydroxide (Milk Of Magnesia) 2,400 mg PRN DAILY PRN PO CONSTIPATION; Start 05/04/17 at 18:15 Ondansetron HCl (Zofran) 4 mg PRN Q6HRS PRN IV NAUSEA/VOMITING Last administered on 05/05/17 02:55; Start 05/04/17 at 18:15 Atorvastatin Calcium (Lipitor) 20 mg QHS PO Last administered on 05/04/17 22: 21; Start 05/04/17 at 21:00 Aspirin (Evy Aspirin) 325 mg DAILY PO Last administered on 05/05/17 10:14; Start 05/04/17 at 19:00 Vancomycin HCl 750 mg/Sodium Chloride 250 ml @ 250 mls/hr Q24H IV ; Start at 17:30 Vancomycin HCl 1 each 1X ONCE MC ; Start 05/06/17 at 17:00; Stop 05/06/17 at 17:01 Info (Do NOT chart on this placeholder) 1 each 1X ONCE MC ; Start 05/05/17 at 01:45; Stop 05/05/17 at 01:46; Status UNV Influenza Virus Vaccine Quadrival (Fluarix Quad 7650-0620 Syringe) 0.5 ml ONCE ONCE VAX IM Last administered on 05/05/17 10:18; Start 05/05/17 at 09:00; Stop 05/05/17 at 09:01; Status DC Lactobacillus Rhamnosus (Culturelle) 1 cap BID PO ; Start 05/05/17 at 21:00 Active Scripts Active Toprol Xl (Metoprolol Succinate) 50 Mg Tab.er.24h 50 Mg PO DAILY Gabapentin 300 Mg Capsule 300 Mg PO BID Cefpodoxime Proxetil 200 Mg Tablet 200 Mg PO BID Reported Aspirin 81 Mg Tab.chew 1 Tab PO DAILY Levothyroxine Sodium 50 Mcg Tablet 1 Tab PO DAILY Atorvastatin Calcium 20 Mg Tablet 1 Tab PO HS Vitals/I & O Vital Sign - Last 24 Hours 05/04/17 05/04/17 05/04/17 05/04/17 15:05 15:45 16:24 17:15 Temp 97.3 97.3 Pulse 124 114 112 104 Resp 20 18 20 18 B/P (MAP) 136/86 (103) 120/76 (91) 115/59 (77) 121/69 (86) Pulse Ox 100 100 100 97 O2 Delivery Room Air Room Air Room Air Room Air 05/04/17 05/04/17 05/04/17 05/04/17 18:14 19:07 19:55 22:22 Temp 97.6 97.6 Pulse 103 116 106 Resp 18 18 16 18 B/P (MAP) 130/63 (85) 109/72 (84) 107/66 (80) Pulse Ox 95 94 93 O2 Delivery Room Air Room Air Room Air Room Air 05/04/17 05/04/17 05/04/17 05/05/17 22:50 23:08 23:41 03:05 Temp 98.1 97.0 98.1 97.0 Pulse 100 101 Resp 17 20 B/P (MAP) 114/63 (80) 116/67 (83) Pulse Ox 98 100 O2 Delivery Nasal Cannula Room Air Nasal Cannula O2 Flow Rate 2.0 2.0 2.0 05/05/17 05/05/17 05/05/17 05/05/17 07:19 10:13 11:00 11:39 Temp 98.0 97.6 98.0 97.6 Pulse 107 71 Resp 19 19 B/P (MAP) 108/66 (80) 105/54 (71) Pulse Ox 99 97 O2 Delivery Room Air Nasal Cannula Room Air Room Air O2 Flow Rate 2.0 2.0 Intake and Output 05/04/17 05/04/17 05/05/17 15:00 23:00 07:00 Intake Total 390 ml Output Total 200 ml Balance 190 ml GLO SPEARS MD May 05, 2017 12:50
[2017-05-05 15:34] VITALS: BP 113/67
--- NOTE | 2017-05-05 15:51 | PDOC2 ---
CONSULT Date of Consult Date of Consult DATE: 05/05/17 TIME: 15:45 Reason for Consult Reason for Consult: left side weakness History of Present Illness Reason for Visit: This patient is 56-year-old female with past medical history of CVA patient is a poor historian she reports she has history of stroke 5 years back with baseline left-sided weakness. She reports patient wakeup in the morning and was feeling some weakness on her left side of the body was also having some problems with her gait and balance. Patient currently reports she does not have any new or worsening of the weakness. She had a CTA done or head and neck which showed a mild lacking at carotid bifurcation there was no evidence of significant intracranial abnormality. She also had some chest discomfort. Patient denies currently no complaint of chest pain. 56-year-old female with history of CVA with left-sided weakness and baseline with patient woke up with symptoms of weakness on the left side which are currently improved. CTA head and neck did not show any evidence of acute intracranial abnormality. We will get the MRI brain to rule out further vascular process. We will continue aspirin for scantly stroke prevention. Check lipid profile. We will K Doppler, 2-D echo. Check for any infectious or metabolic etiology. PTOT evaluation. Continue statin for hyperlipidemia with a goal LDL less than 70. Continue stroke risk factor modification. Continue medical management. Past Medical History Cardiovascular: HTN, Hyperlipidemia CENTRAL NERVOUS SYSTEM: CVA Musculoskeletal: Osteoarthritis Endocrine: Hypothyroidism Family History Family History: No Significant Social History ALCOHOL: none Lives: with Family Current Problem List Problem List Problems Medical Problems: (1) Lactic acidosis Status: Acute (2) Paresthesias Status: Acute (3) Tachycardia Status: Acute Current Medications Current Medications Current Medications Sodium Chloride 1,000 ml @ 1,000 mls/hr 1X ONCE IV Last administered on 05/04 16:12; Start 05/04/17 at 15:30; Stop 05/04/17 at 16:29; Status DC Iohexol (Omnipaque 300 Mg/ml) 75 ml 1X ONCE IV Last administered on 16:36; Start 05/04/17 at 16:00; Stop 05/04/17 at 16:01; Status DC Info (Do NOT chart on this entry -- for MONITORING) 1 each PRN DAILY PRN MC SEE COMMENTS; Start 05/04/17 at 16:00; Stop 05/06/17 at 15:59 Vancomycin HCl (Vanco Per Pharmacy) 1 each PRN DAILY PRN MC SEE COMMENTS Last administered on 05/05/17 12:29; Start 05/04/17 at 16:45 Ceftriaxone Sodium 50 ml @ 100 mls/hr 1X ONCE IV Last administered on 16:57; Start 05/04/17 at 16:45; Stop 05/04/17 at 17:14; Status DC Vancomycin HCl 1.25 gm/Dextrose/ Sodium Chloride 250 ml @ 166.667 mls/hr 1X ONCE IV Last administered on 05/04/17 17:33; Start 05/04/17 at 16:45; Stop 05/04/17 at 18:14; Status DC Sodium Chloride 1,000 ml @ 1,000 mls/hr 1X ONCE IV Last administered on 05/04 17:36; Start 05/04/17 at 17:30; Stop 05/04/17 at 18:29; Status DC Ondansetron HCl (Zofran) 4 mg PRN Q8HRS PRN IV NAUSEA/VOMITING; Start at 17:30; Stop 05/05/17 at 17:29 Fentanyl Citrate (Fentanyl 2ml Vial) 50 mcg PRN Q2HR PRN IV PAIN Last administered on 05/05/17 10:13; Start 05/04/17 at 17:30; Stop 05/05/17 at 17 :29 Acetaminophen (Tylenol) 650 mg PRN Q4HRS PRN PO FEVER; Start 05/04/17 at 17:30 ; Stop 05/05/17 at 17:29 Gabapentin (Neurontin) 300 mg BID PO Last administered on 05/05/17 10:14; Start 05/04/17 at 21:00 Levothyroxine Sodium (Synthroid) 50 mcg DAILY06 PO Last administered on 06:11; Start 05/05/17 at 06:00 Acetaminophen (Tylenol) 650 mg PRN Q4HRS PRN PO MILD PAIN / TEMP; Start at 18:15 Magnesium Hydroxide (Milk Of Magnesia) 2,400 mg PRN DAILY PRN PO CONSTIPATION; Start 05/04/17 at 18:15 Ondansetron HCl (Zofran) 4 mg PRN Q6HRS PRN IV NAUSEA/VOMITING Last administered on 05/05/17 02:55; Start 05/04/17 at 18:15 Atorvastatin Calcium (Lipitor) 20 mg QHS PO Last administered on 05/04/17 22: 21; Start 05/04/17 at 21:00 Aspirin (Evy Aspirin) 325 mg DAILY PO Last administered on 05/05/17 10:14; Start 05/04/17 at 19:00 Vancomycin HCl 750 mg/Sodium Chloride 250 ml @ 250 mls/hr Q24H IV ; Start at 17:30; Stop 05/05/17 at 17:30; Status DC Vancomycin HCl 1 each 1X ONCE MC ; Start 05/06/17 at 17:00; Stop 05/06/17 at 17:01 Info (Do NOT chart on this placeholder) 1 each 1X ONCE MC ; Start 05/05/17 at 01:45; Stop 05/05/17 at 01:46; Status UNV Influenza Virus Vaccine Quadrival (Fluarix Quad [id number] Syringe) 0.5 ml ONCE ONCE VAX IM Last administered on 05/05/17 10:18; Start 05/05/17 at 09:00; Stop 05/05/17 at 09:01; Status DC Lactobacillus Rhamnosus (Culturelle) 1 cap BID PO ; Start 05/05/17 at 21:00 Potassium Chloride (Klor-Con) 40 meq 1X ONCE PO ; Start 05/05/17 at 12:45; Stop 05/05/17 at 12:49; Status DC Metoprolol Succinate (Toprol Xl) 50 mg DAILY PO ; Start 05/05/17 at 13:00 Ceftriaxone Sodium 1 gm/ Dextrose 50 ml @ 100 mls/hr Q24H IV ; Start 05/05/17 at 16:45; Status UNV Vancomycin HCl 750 mg/Dextrose/ Sodium Chloride 250 ml @ 250 mls/hr Q24H IV ; Start 05/05/17 at 17:30 Ceftriaxone Sodium (Rocephin) 1 gm Q24H IVP ; Start 05/05/17 at 16:00 Active Scripts Active Toprol Xl (Metoprolol Succinate) 50 Mg Tab.er.24h 50 Mg PO DAILY Gabapentin 300 Mg Capsule 300 Mg PO BID Cefpodoxime Proxetil 200 Mg Tablet 200 Mg PO BID Reported Aspirin 81 Mg Tab.chew 1 Tab PO DAILY Levothyroxine Sodium 50 Mcg Tablet 1 Tab PO DAILY Atorvastatin Calcium 20 Mg Tablet 1 Tab PO HS Allergies Allergies: Coded Allergies: Penicillins (Verified Allergy, Intermediate, 05/05/17) Tolerates meropenem, CEFTRIAXONE apple (Verified Allergy, Intermediate, 11/06/15) orange juice (Verified Allergy, Intermediate, 11/15/14) strawberry (Verified Allergy, Intermediate, 11/15/14) Physical Exam Physical Exam REVIEW OF SYSTEMS: Otherwise, not [id number] review of systems. PHYSICAL EXAMINATION: General appearance is in acute distress. HEENT: Normocephalic and nontraumatic. Eyes, nose, ears, and throat are unremarkable. Neck is supple. No lymphadenopathy. No crepitus. Cardiovascular: S1, S2, regular rate and rhythm. Pulmonary: Clear to auscultation bilaterally. Abdomen: Bowel sounds are positive. Abdomen is soft, nontender, and nondistended. NEUROLOGICAL EXAMINATION: Alert Oriented to time, place and person. PERRL. EOMI. CN: no focal findings. Muscle tone: within normal. Muscle strength: 5 on right side with left sided weakness DTR: 1-2 Plantar reflex: Flexor response bilaterally Gait: not examined in bed. Sensory exam: no abnormal findings. No obvious cerebellar signs elicited. Vitals VITALS Vital Signs Date Time Temp Pulse Resp B/P (MAP) Pulse Ox O2 Delivery O2 Flow Rate FiO2 05/05/17 15:34 98.0 82 19 113/67 (82) 99 Room Air 98.0 05/05/17 10:13 2.0 Labs Labs Laboratory Tests Test 05/04/17 13:12 05/04/17 13:15 05/04/17 15:07 05/04/17 15:27 White Blood Count 8.2 x10^3/uL (4.0-11.0) Red Blood Count 3.89 x10^6/uL (3.50-5.40) Hemoglobin 11.5 g/dL (12.0-15.5) Hematocrit 35.0 % (36.0-47.0) Mean Corpuscular Volume 90 fL (79-100) Mean Corpuscular Hemoglobin 29 pg (25-35) Mean Corpuscular Hemoglobin Concent 33 g/dL (31-37) Red Cell Distribution Width 19.5 % (11.5-14.5) Platelet Count 655 x10^3/uL (140-400) Neutrophils (%) (Auto) 76 % (31-73) Lymphocytes (%) (Auto) 17 % (24-48) Monocytes (%) (Auto) 6 % (0-9) Eosinophils (%) (Auto) 0 % (0-3) Basophils (%) (Auto) 0 % (0-3) Neutrophils # (Auto) 6.2 x10^3uL (1.8-7.7) Lymphocytes # (Auto) 1.4 x10^3/uL (1.0-4.8) Monocytes # (Auto) 0.5 x10^3/uL (0.0-1.1) Eosinophils # (Auto) 0.0 x10^3/uL (0.0-0.7) Basophils # (Auto) 0.0 x10^3/uL (0.0-0.2) Sodium Level 141 mmol/L (136-145) Potassium Level 3.6 mmol/L (3.5-5.1) Chloride Level 103 mmol/L (98-107) Carbon Dioxide Level 23 mmol/L (21-32) Anion Gap 15 (6-14) Blood Urea Nitrogen 15 mg/dL (7-20) Creatinine 1.0 mg/dL (0.6-1.0) Estimated GFR (Cockcroft-Gault) 69.1 BUN/Creatinine Ratio 15 (6-20) Glucose Level 119 mg/dL (70-99) Lactic Acid Level 3.0 mmol/L (0.4-2.0) Calcium Level 7.9 mg/dL (8.5-10.1) Total Bilirubin 0.4 mg/dL (0.2-1.0) Aspartate Amino Transf (AST/SGOT) 57 U/L (15-37) Alanine Aminotransferase (ALT/SGPT) 40 U/L (14-59) Alkaline Phosphatase 197 U/L (46-116) Troponin I Quantitative < 0.017 ng/mL (0.000-0.055) Total Protein 6.0 g/dL (6.4-8.2) Albumin 2.7 g/dL (3.4-5.0) Albumin/Globulin Ratio 0.8 (1.0-1.7) Lipase 173 U/L (73-393) Urine Collection Type Unknown Urine Color Maren Urine Clarity Clear Urine pH 5.5 Urine Specific [place] >=1.030 Urine Protein Negative mg/dL (NEG-TRACE) Urine Glucose (UA) Negative mg/dL (NEG) Urine Ketones (Stick) Trace mg/dL (NEG) Urine Blood Negative (NEG) Urine Nitrite Negative (NEG) Urine Bilirubin Small (NEG) Urine Urobilinogen Dipstick 1.0 mg/dL (0.2 mg/dL) Urine Leukocyte Esterase Negative (NEG) Urine RBC 0 /HPF (0-2) Urine WBC 0 /HPF (0-4) Urine Squamous Epithelial Cells None /LPF Urine Bacteria Few /HPF (0-FEW) Urine Mucus Slight /LPF Glucose (Fingerstick) 115 mg/dL (70-99) Prothrombin Time 12.1 SEC (11.7-14.0) Prothromb Time International Ratio 1.0 (0.8-1.1) Test 05/04/17 19:30 05/05/17 07:00 Lactic Acid Level 0.8 mmol/L (0.4-2.0) White Blood Count 8.5 x10^3/uL (4.0-11.0) Red Blood Count 3.85 x10^6/uL (3.50-5.40) Hemoglobin 11.4 g/dL (12.0-15.5) Hematocrit 34.5 % (36.0-47.0) Mean Corpuscular Volume 90 fL (79-100) Mean Corpuscular Hemoglobin 30 pg (25-35) Mean Corpuscular Hemoglobin Concent 33 g/dL (31-37) Red Cell Distribution Width 19.9 % (11.5-14.5) Platelet Count 575 x10^3/uL (140-400) Neutrophils (%) (Auto) 81 % (31-73) Lymphocytes (%) (Auto) 13 % (24-48) Monocytes (%) (Auto) 6 % (0-9) Eosinophils (%) (Auto) 0 % (0-3) Basophils (%) (Auto) 0 % (0-3) Neutrophils # (Auto) 6.9 x10^3uL (1.8-7.7) Lymphocytes # (Auto) 1.1 x10^3/uL (1.0-4.8) Monocytes # (Auto) 0.5 x10^3/uL (0.0-1.1) Eosinophils # (Auto) 0.0 x10^3/uL (0.0-0.7) Basophils # (Auto) 0.0 x10^3/uL (0.0-0.2) Sodium Level 141 mmol/L (136-145) Potassium Level 3.0 mmol/L (3.5-5.1) Chloride Level 106 mmol/L (98-107) Carbon Dioxide Level 22 mmol/L (21-32) Anion Gap 13 (6-14) Blood Urea Nitrogen 9 mg/dL (7-20) Creatinine 0.7 mg/dL (0.6-1.0) Estimated GFR (Cockcroft-Gault) 104.4 Glucose Level 88 mg/dL (70-99) Calcium Level 7.2 mg/dL (8.5-10.1) Laboratory Tests Test 05/04/17 19:30 05/05/17 07:00 Lactic Acid Level 0.8 mmol/L (0.4-2.0) White Blood Count 8.5 x10^3/uL (4.0-11.0) Red Blood Count 3.85 x10^6/uL (3.50-5.40) Hemoglobin 11.4 g/dL (12.0-15.5) Hematocrit 34.5 % (36.0-47.0) Mean Corpuscular Volume 90 fL (79-100) Mean Corpuscular Hemoglobin 30 pg (25-35) Mean Corpuscular Hemoglobin Concent 33 g/dL (31-37) Red Cell Distribution Width 19.9 % (11.5-14.5) Platelet Count 575 x10^3/uL (140-400) Neutrophils (%) (Auto) 81 % (31-73) Lymphocytes (%) (Auto) 13 % (24-48) Monocytes (%) (Auto) 6 % (0-9) Eosinophils (%) (Auto) 0 % (0-3) Basophils (%) (Auto) 0 % (0-3) Neutrophils # (Auto) 6.9 x10^3uL (1.8-7.7) Lymphocytes # (Auto) 1.1 x10^3/uL (1.0-4.8) Monocytes # (Auto) 0.5 x10^3/uL (0.0-1.1) Eosinophils # (Auto) 0.0 x10^3/uL (0.0-0.7) Basophils # (Auto) 0.0 x10^3/uL (0.0-0.2) Sodium Level 141 mmol/L (136-145) Potassium Level 3.0 mmol/L (3.5-5.1) Chloride Level 106 mmol/L (98-107) Carbon Dioxide Level 22 mmol/L (21-32) Anion Gap 13 (6-14) Blood Urea Nitrogen 9 mg/dL (7-20) Creatinine 0.7 mg/dL (0.6-1.0) Estimated GFR (Cockcroft-Gault) 104.4 Glucose Level 88 mg/dL (70-99) Calcium Level 7.2 mg/dL (8.5-10.1) Assessment/Plan Assessment/Plan This patient is 56-year-old female with past medical history of CVA patient is a poor historian she reports she has history of stroke 5 years back with baseline left-sided weakness. She reports patient wakeup in the morning and was feeling some weakness on her left side of the body was also having some problems with her gait and balance. Patient currently reports she does not have any new or worsening of the weakness. She had a CTA done or head and neck which showed a mild lacking at carotid bifurcation there was no evidence of significant intracranial abnormality. She also had some chest discomfort. Patient denies currently no complaint of chest pain. 56-year-old female with history of CVA with left-sided weakness and baseline with patient woke up with symptoms of weakness on the left side which are currently improved. CTA head and neck did not show any evidence of acute intracranial abnormality. We will get the MRI brain to rule out further vascular process. We will continue aspirin for scantly stroke prevention. Check lipid profile. We will K Doppler, 2-D echo. Check for any infectious or metabolic etiology. PTOT evaluation. Continue statin for hyperlipidemia with a goal LDL less than 70. Continue stroke risk factor modification. Continue medical management. TYLER KENT MD May 05, 2017 15:50
[2017-05-05] MEDS ORDERED: VANCOMYCIN 750 MG in IV 1/2 NORMAL SALINE 250 ML IV SCH (17:30)
[2017-05-05] MEDS ORDERED: VANCOMYCIN 750 MG in IV DEXTROSE 5 %-0.2 % NACL 250 ML IV SCH (17:30)
[2017-05-05] MEDS: METOPROLOL SUCC 24HR ER 50 MG TAB.ER.24H. PO SCH (17:59)
[2017-05-05] MEDS: cefTRIAXone IV Push 1 GM VIAL. IVP SCH (17:59)
--- NOTE | 2017-05-05 18:18 | EKG ---
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
[2017-05-05 19:00] VITALS: BP 115/69
--- NOTE | 2017-05-05 19:22 | PDOC ---
Infectious Disease Note Vital Sign Vital Signs Vital Signs Date Time Temp Pulse Resp B/P (MAP) Pulse Ox O2 Delivery O2 Flow Rate FiO2 05/05/17 17:59 82 113/67 05/05/17 15:34 98.0 19 99 Room Air 98.0 05/05/17 10:13 2.0 Labs Lab Laboratory Tests Test 05/04/17 19:30 05/05/17 07:00 Lactic Acid Level 0.8 mmol/L (0.4-2.0) White Blood Count 8.5 x10^3/uL (4.0-11.0) Red Blood Count 3.85 x10^6/uL (3.50-5.40) Hemoglobin 11.4 g/dL (12.0-15.5) Hematocrit 34.5 % (36.0-47.0) Mean Corpuscular Volume 90 fL (79-100) Mean Corpuscular Hemoglobin 30 pg (25-35) Mean Corpuscular Hemoglobin Concent 33 g/dL (31-37) Red Cell Distribution Width 19.9 % (11.5-14.5) Platelet Count 575 x10^3/uL (140-400) Neutrophils (%) (Auto) 81 % (31-73) Lymphocytes (%) (Auto) 13 % (24-48) Monocytes (%) (Auto) 6 % (0-9) Eosinophils (%) (Auto) 0 % (0-3) Basophils (%) (Auto) 0 % (0-3) Neutrophils # (Auto) 6.9 x10^3uL (1.8-7.7) Lymphocytes # (Auto) 1.1 x10^3/uL (1.0-4.8) Monocytes # (Auto) 0.5 x10^3/uL (0.0-1.1) Eosinophils # (Auto) 0.0 x10^3/uL (0.0-0.7) Basophils # (Auto) 0.0 x10^3/uL (0.0-0.2) Sodium Level 141 mmol/L (136-145) Potassium Level 3.0 mmol/L (3.5-5.1) Chloride Level 106 mmol/L (98-107) Carbon Dioxide Level 22 mmol/L (21-32) Anion Gap 13 (6-14) Blood Urea Nitrogen 9 mg/dL (7-20) Creatinine 0.7 mg/dL (0.6-1.0) Estimated GFR (Cockcroft-Gault) 104.4 Glucose Level 88 mg/dL (70-99) Calcium Level 7.2 mg/dL (8.5-10.1) Micro BLOOD CULTURE Preliminary NO GROWTH AFTER 1 DAY Objective Assessment Lactic acidosis - improved PCN allergy - hives. 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
[2017-05-05 20:12] LABS: CALCIUM 7.3 mg/dL (8.5-10.1); MAGNESIUM 1.2 mg/dL (1.8-2.4); POTASSIUM 3.4 mmol/L (3.5-5.1)
[2017-05-05] MEDS: LACTOBACILLUS RHAMNOSUS GG 1 CAPSULE. PO SCH (20:56)
[2017-05-05] MEDS: ATORVASTATIN CALCIUM 20 MG TABLET PO SCH (20:57)
--- NOTE | 2017-05-05 22:17 | CONS ---
DATE OF CONSULTATION: 05/04/2017 DICTATING PHYSICIAN: Jovi Bingham APRN. REFERRING PHYSICIAN: Dr. Reynoso. REASON FOR CONSULTATION: Lactic acidosis. HISTORY OF PRESENT ILLNESS: This patient is a 56-year-old female with a history of cerebrovascular accident with left-sided hemiparesis and peripheral neuropathy. Yesterday morning, she woke up feeling more weak than usual on the left side and tingling numbing sensation on the right side associated with chest pain. She was unable to get up from her chair. On arrival to the ER, she was afebrile with a normal white blood cell count and a lactic acid of 3.0. Urinalysis was unremarkable for infection. Blood cultures are negative to date. His CTA of the head showed mild calcific plaquing at the carotid bifurcations. No significant intracranial arterial abnormality detected. She is being followed by Neurology. A MRI of the brain is pending. She was started on vancomycin and ceftriaxone for possible infectious process. The patient is complaining of subjective fevers prior to admit. She is feeling better in the sense that the tingling, numbness in the right side of her body has resolved. She was complaining of chest pain earlier with a run of V-tach. Denies shortness of air, dizziness or palpitations. Denies nausea, vomiting or diarrhea. Denies dysuria, frequency or urgency. Although she had these symptoms last week. She reports some sinus/nasal congestion. Denies headaches. PAST MEDICAL HISTORY: 1. Cerebrovascular accident with left-sided hemiparesis. 2. Peripheral neuropathy. 3. Hypertension. 4. Hyperlipidemia. 5. Hypothyroidism. 6. Osteoarthritis. 7. Neuropathic pain. 8. Depression and anxiety. 9. E. coli pansensitive sepsis. PAST SURGICAL HISTORY: Colon resection, left wrist fracture repair, appendectomy, section x 3 and tubal ligation. SOCIAL HISTORY: The patient lives with her aunt. She is a former smoker. History of substance use in college. . FAMILY HISTORY: Positive for neoplasm, obesity, hypertension, gallbladder disease, diabetes mellitus, cardiovascular disease, breast disease and asthma. ALLERGIES: PENICILLIN, causing hives and itching. MEDICATIONS: Vancomycin and ceftriaxone. Other medications are available and have been reviewed on the MAR. REVIEW OF SYSTEMS: Per HPI, otherwise all other review of systems are negative. PHYSICAL EXAMINATION: GENERAL: female, propped up in bed, in no apparent distress. VITAL SIGNS: Temperature is 98.0, blood pressure 113/67, heart rate 82, respiratory rate 19, pulse oximetry 99% on room air, weight 128 pounds and BMI 24. HEENT: Pupils equally round. Oral mucosa is pink and moist. Poor dentition. LUNGS: Clear. HEART: Normal S1 and S2. ABDOMEN: Nondistended. Bowel sounds active. Soft and nontender. EXTREMITIES: No gross edema or cyanosis. SKIN: Without rash. NEUROLOGICAL: Alert and oriented. Mild left-sided weakness compared to the right. No arm drift or facial droop. Moves all extremities. LABORATORY DATA: Today's WBC 8.5; hemoglobin 11.4 and platelet count 575,000. Sodium 141, potassium 3.0, creatinine 0.7, BUN 9 and glucose 88. Lactic acid 0.8 from 3.0. Troponin less than 0.017. Total bilirubin 0.4, AST 57, ALT 40 and alkaline phosphatase 197. Albumin 2.7. Lipase 173. Urinalysis unremarkable for infection. Blood cultures negative to date. RADIOLOGICAL DATA: Head and neck CTA per HPI. Chest x-ray unremarkable. Brain MRI pending. IMPRESSION: 1. Lactic acidosis, improved. 2. Penicillin allergy causing hives. Tolerating Rocephin without problem. 3. Chest pain with run of ventricular tachycardia. 4. History of cerebrovascular accident with late effects with spastic left-sided hemiparesis. 5. Hypertension. 6. Peripheral neuropathy. 7.Poor dentition PLAN: The patient continued the vancomycin and Rocephin for now. Wean soon. We will follow up on cultures. Monitor creat closely. Await MRI of brain. Obtain an EKG and consult Cardiology. Check a TSH. Thank you, Dr. Reynoso for asking us to participate in this patient's care. Should you have further questions or concerns, please call. RAMU NOEL MD DR: MAGGIE/serafin JOB#: [id number] / [id number] MARGARET
[2017-05-05 23:42] VITALS: BP 99/62
[2017-05-06] MEDS: ACETAMINOPHEN 325 MG TABLET. PO PRN ×2 (00:28→23:23)
--- NOTE | 2017-05-06 02:38 | RAD ---
EXAM: MRI BRAIN WITHOUT CONTRAST. HISTORY: Headache, dizziness, tremor, cerebrovascular accident. TECHNIQUE: Magnetic resonance images of the brain were obtained without intravenous contrast. COMPARISON: May 04, 2017. FINDINGS: There is no diffusion restriction. There are multiple bilateral chronic lacunar infarcts within the jarrod, thalami and right putamen. Hemosiderin within the right greater than left thalami indicates chronic hemorrhages. Additional small infarcts are seen within the bifrontal white matter, superimposed on moderate chronic microangiopathic white matter change elsewhere. The ventricles are normal in size and position. The paranasal sinuses are clear. The orbits are unremarkable. The temporal bones are unremarkable. The calvarium demonstrates no suspicious lesions. IMPRESSION: 1. No acute infarct. 2. Multiple chronic lacunar infarction superimposed on moderate chronic microangiopathic white matter change as above. Electronically signed by: Gage Crowley MD (05/06/2017 2:35 AM) [id number]
[2017-05-06 03:15] VITALS: BP 95/52
[2017-05-06 05:53] LABS: BASO % 0 % (0-3); EOS % 0 % (0-3); HEMATOCRIT 27.4 % (36.0-47.0); HEMOGLOBIN 9.2 g/dL (12.0-15.5); LYMPH # 1.1 x10^3/uL (1.0-4.8); LYMPH % 17 % (24-48); MEAN CORPUSCULAR HEMOGLOBIN 30 pg (25-35); MEAN CORPUSCULAR HGB CONC 34 g/dL (31-37); MEAN CORPUSCULAR VOLUME 89 fL (79-100); MONO % 9 % (0-9); NEUT % 74 % (31-73); PLATELET COUNT 445 x10^3/uL (140-400); RED BLOOD COUNT 3.09 x10^6/uL (3.50-5.40); RED CELL DISTRIBUTION WIDTH 19.9 % (11.5-14.5); WHITE BLOOD COUNT 6.5 x10^3/uL (4.0-11.0)
[2017-05-06 06:09] LABS: CALCIUM 6.9 mg/dL (8.5-10.1); CREATININE 0.8 mg/dL (0.6-1.0); GFR 89.5; MAGNESIUM 1.2 mg/dL (1.8-2.4); POTASSIUM 3.4 mmol/L (3.5-5.1)
[2017-05-06] MEDS: LEVOTHYROXINE 50 MCG TABLET PO SCH (06:11)
[2017-05-06 07:25] VITALS: BP 105/65
[2017-05-06] MEDS: METOPROLOL SUCC 24HR ER 50 MG TAB.ER.24H. PO SCH (08:31)
[2017-05-06] MEDS: LACTOBACILLUS RHAMNOSUS GG 1 CAPSULE. PO SCH ×2 (08:31→20:55)
[2017-05-06] MEDS: ASPIRIN 325 MG TABLET PO SCH (08:31)
[2017-05-06] MEDS: GABAPENTIN 300 MG CAPSULE. PO SCH ×2 (08:31→20:55)
--- NOTE | 2017-05-06 10:21 | RAD ---
Bilateral carotid Doppler ultrasound 05/05/2017 Clinical indication: Evaluate new strokes. COMPARISON: CTA head and neck 05/04/2017. TECHNIQUE: Color, grayscale and doppler ultrasound images obtained of the carotid system bilaterally. Percent stenosis is estimated using criteria that correlates with NASCET methodology. FINDINGS: Peak systolic velocities are as follows in cm/s: Right Carotid System: Mid CCA: 75 cm/s Distal ICA: 91 cm/s Distal ICA EDV: 24 cm/s ECA: 92 cm/s ICA/CCA ratio: 1.2 Left carotid system: Mid CCA: 79 cm/s Mid ICA: 58 cm/s Mid ICA EDV: 19 cm/s ECA 74 cm/s ICA/CCA ratio: 0.7 Vertebral arteries are antegrade bilaterally. There is mild calcified plaque at the proximal ICA without high-grade visualized narrowing. There is mild calcified plaque of the proximal internal carotid artery without high-grade visualized narrowing. IMPRESSION: Mild calcified plaque at the origin of the internal carotid arteries without hemodynamically significant stenosis.
--- NOTE | 2017-05-06 10:28 | PDOC ---
Infectious Disease Note Subjective Subjective Comfortable Denies CP since last night ROS ROS GEN: Denies fevers, chills, sweats RESP: Denies shortness of air, cough GI: Denies n/v/d NEURO: Denies confusion, dizziness Vital Sign Vital Signs Vital Signs Date Time Temp Pulse Resp B/P (MAP) Pulse Ox O2 Delivery O2 Flow Rate FiO2 05/06/17 08:31 98 105/65 05/06/17 08:18 Room Air 05/06/17 07:25 98.2 18 99 98.2 05/05/17 10:13 2.0 Physical Exam PHYSICAL EXAM GENERAL: Propped up in bed, NAD, smiling HEENT: Pupils equally round. Oral mucosa is pink and moist. Poor dentition. LUNGS: Clear. HEART: Normal S1 and S2. ABDOMEN: Nondistended. Bowel sounds active. Soft and nontender. EXTREMITIES: No gross edema or cyanosis. SKIN: Without rash. NEUROLOGICAL: Alert and oriented. Mild left-sided weakness compared to the right. No arm drift or facial droop. Moves all extremities. Labs Lab Laboratory Tests Test 05/05/17 19:40 05/06/17 03:30 Potassium Level 3.4 mmol/L (3.5-5.1) 3.4 mmol/L (3.5-5.1) Calcium Level 7.3 mg/dL (8.5-10.1) 6.9 mg/dL (8.5-10.1) Magnesium Level 1.2 mg/dL (1.8-2.4) 1.2 mg/dL (1.8-2.4) White Blood Count 6.5 x10^3/uL (4.0-11.0) Red Blood Count 3.09 x10^6/uL (3.50-5.40) Hemoglobin 9.2 g/dL (12.0-15.5) Hematocrit 27.4 % (36.0-47.0) Mean Corpuscular Volume 89 fL (79-100) Mean Corpuscular Hemoglobin 30 pg (25-35) Mean Corpuscular Hemoglobin Concent 34 g/dL (31-37) Red Cell Distribution Width 19.9 % (11.5-14.5) Platelet Count 445 x10^3/uL (140-400) Neutrophils (%) (Auto) 74 % (31-73) Lymphocytes (%) (Auto) 17 % (24-48) Monocytes (%) (Auto) 9 % (0-9) Eosinophils (%) (Auto) 0 % (0-3) Basophils (%) (Auto) 0 % (0-3) Neutrophils # (Auto) 4.8 x10^3uL (1.8-7.7) Lymphocytes # (Auto) 1.1 x10^3/uL (1.0-4.8) Monocytes # (Auto) 0.6 x10^3/uL (0.0-1.1) Eosinophils # (Auto) 0.0 x10^3/uL (0.0-0.7) Basophils # (Auto) 0.0 x10^3/uL (0.0-0.2) Sodium Level 141 mmol/L (136-145) Chloride Level 107 mmol/L (98-107) Carbon Dioxide Level 23 mmol/L (21-32) Anion Gap 11 (6-14) Blood Urea Nitrogen 8 mg/dL (7-20) Creatinine 0.8 mg/dL (0.6-1.0) Estimated GFR (Cockcroft-Gault) 89.5 Glucose Level 89 mg/dL (70-99) Thyroid Stimulating Hormone (TSH) 6.453 uIU/mL (0.358-3.74) MRI brain IMPRESSION: 1. No acute infarct. 2. Multiple chronic lacunar infarction superimposed on moderate chronic microangiopathic white matter change as above. Micro BLOOD CULTURE Preliminary NO GROWTH AFTER 1 DAY Objective Assessment Lactic acidosis - improved PCN allergy - hives. 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
--- NOTE | 2017-05-06 10:54 | PDOC ---
PROGRESS NOTES Subjective Subjective had NSVT. lab shows serum magnesium low 1.2 and potassium low 3.4. echo ordered. MRI brain shows no acute stroke but shows multiple lacunar CVA. blood pressure not high currently but on low side of normal. feels better. notes significant mobility and self care deficits and PT recommends acute in patient rehab facility. blood culture neg so far. Objective Objective Vital Signs Date Time Temp Pulse Resp B/P (MAP) Pulse Ox O2 Delivery O2 Flow Rate FiO2 05/06/17 08:31 98 105/65 05/06/17 08:18 Room Air 05/06/17 07:25 98.2 18 99 98.2 05/05/17 10:13 2.0 Intake and Output 05/06/17 07:00 Intake Total 420 ml Output Total 400 ml Balance 20 ml Intake Oral 420 ml Output Urine Total 400 ml Physical Exam Abdomen: Soft Heart: Regular rate, Normal S1, Normal S2 Extremities: No edema General: Alert HEENT: Atraumatic Lungs: Clear to auscultation Neuro: Normal speech, Other (spastic left hemiparesis) Psych/Mental Status: Mental status NL Skin: No rashes Assessment Assessment Problems. Acute onset left-sided weakness.05/04/17 resolved. no acute CVA on MRI brain. has multiple old lacunar infarcts 2. 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 3. Hypertension. 4. Hyperlipidemia. 5. Hypothyroidism. 6. Osteoarthritis. 7. Anemia. 8. 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 Labs Laboratory Tests Test 05/04/17 13:12 05/04/17 13:15 05/04/17 15:07 05/04/17 15:27 White Blood Count 8.2 x10^3/uL (4.0-11.0) Red Blood Count 3.89 x10^6/uL (3.50-5.40) Hemoglobin 11.5 g/dL (12.0-15.5) Hematocrit 35.0 % (36.0-47.0) Mean Corpuscular Volume 90 fL (79-100) Mean Corpuscular Hemoglobin 29 pg (25-35) Mean Corpuscular Hemoglobin Concent 33 g/dL (31-37) Red Cell Distribution Width 19.5 % (11.5-14.5) Platelet Count 655 x10^3/uL (140-400) Neutrophils (%) (Auto) 76 % (31-73) Lymphocytes (%) (Auto) 17 % (24-48) Monocytes (%) (Auto) 6 % (0-9) Eosinophils (%) (Auto) 0 % (0-3) Basophils (%) (Auto) 0 % (0-3) Neutrophils # (Auto) 6.2 x10^3uL (1.8-7.7) Lymphocytes # (Auto) 1.4 x10^3/uL (1.0-4.8) Monocytes # (Auto) 0.5 x10^3/uL (0.0-1.1) Eosinophils # (Auto) 0.0 x10^3/uL (0.0-0.7) Basophils # (Auto) 0.0 x10^3/uL (0.0-0.2) Sodium Level 141 mmol/L (136-145) Potassium Level 3.6 mmol/L (3.5-5.1) Chloride Level 103 mmol/L (98-107) Carbon Dioxide Level 23 mmol/L (21-32) Anion Gap 15 (6-14) Blood Urea Nitrogen 15 mg/dL (7-20) Creatinine 1.0 mg/dL (0.6-1.0) Estimated GFR (Cockcroft-Gault) 69.1 BUN/Creatinine Ratio 15 (6-20) Glucose Level 119 mg/dL (70-99) Lactic Acid Level 3.0 mmol/L (0.4-2.0) Calcium Level 7.9 mg/dL (8.5-10.1) Total Bilirubin 0.4 mg/dL (0.2-1.0) Aspartate Amino Transf (AST/SGOT) 57 U/L (15-37) Alanine Aminotransferase (ALT/SGPT) 40 U/L (14-59) Alkaline Phosphatase 197 U/L (46-116) Troponin I Quantitative < 0.017 ng/mL (0.000-0.055) Total Protein 6.0 g/dL (6.4-8.2) Albumin 2.7 g/dL (3.4-5.0) Albumin/Globulin Ratio 0.8 (1.0-1.7) Lipase 173 U/L (73-393) Urine Collection Type Unknown Urine Color Maren Urine Clarity Clear Urine pH 5.5 Urine Specific Sears >=1.030 Urine Protein Negative mg/dL (NEG-TRACE) Urine Glucose (UA) Negative mg/dL (NEG) Urine Ketones (Stick) Trace mg/dL (NEG) Urine Blood Negative (NEG) Urine Nitrite Negative (NEG) Urine Bilirubin Small (NEG) Urine Urobilinogen Dipstick 1.0 mg/dL (0.2 mg/dL) Urine Leukocyte Esterase Negative (NEG) Urine RBC 0 /HPF (0-2) Urine WBC 0 /HPF (0-4) Urine Squamous Epithelial Cells None /LPF Urine Bacteria Few /HPF (0-FEW) Urine Mucus Slight /LPF Glucose (Fingerstick) 115 mg/dL (70-99) Prothrombin Time 12.1 SEC (11.7-14.0) Prothromb Time International Ratio 1.0 (0.8-1.1) Test 05/04/17 19:30 05/05/17 07:00 05/05/17 19:40 05/06/17 03:30 Lactic Acid Level 0.8 mmol/L (0.4-2.0) White Blood Count 8.5 x10^3/uL (4.0-11.0) 6.5 x10^3/uL (4.0-11.0) Red Blood Count 3.85 x10^6/uL (3.50-5.40) 3.09 x10^6/uL (3.50-5.40) Hemoglobin 11.4 g/dL (12.0-15.5) 9.2 g/dL (12.0-15.5) Hematocrit 34.5 % (36.0-47.0) 27.4 % (36.0-47.0) Mean Corpuscular Volume 90 fL (79-100) 89 fL (79-100) Mean Corpuscular Hemoglobin 30 pg (25-35) 30 pg (25-35) Mean Corpuscular Hemoglobin Concent 33 g/dL (31-37) 34 g/dL (31-37) Red Cell Distribution Width 19.9 % (11.5-14.5) 19.9 % (11.5-14.5) Platelet Count 575 x10^3/uL (140-400) 445 x10^3/uL (140-400) Neutrophils (%) (Auto) 81 % (31-73) 74 % (31-73) Lymphocytes (%) (Auto) 13 % (24-48) 17 % (24-48) Monocytes (%) (Auto) 6 % (0-9) 9 % (0-9) Eosinophils (%) (Auto) 0 % (0-3) 0 % (0-3) Basophils (%) (Auto) 0 % (0-3) 0 % (0-3) Neutrophils # (Auto) 6.9 x10^3uL (1.8-7.7) 4.8 x10^3uL (1.8-7.7) Lymphocytes # (Auto) 1.1 x10^3/uL (1.0-4.8) 1.1 x10^3/uL (1.0-4.8) Monocytes # (Auto) 0.5 x10^3/uL (0.0-1.1) 0.6 x10^3/uL (0.0-1.1) Eosinophils # (Auto) 0.0 x10^3/uL (0.0-0.7) 0.0 x10^3/uL (0.0-0.7) Basophils # (Auto) 0.0 x10^3/uL (0.0-0.2) 0.0 x10^3/uL (0.0-0.2) Sodium Level 141 mmol/L (136-145) 141 mmol/L (136-145) Potassium Level 3.0 mmol/L (3.5-5.1) 3.4 mmol/L (3.5-5.1) 3.4 mmol/L (3.5-5.1) Chloride Level 106 mmol/L (98-107) 107 mmol/L (98-107) Carbon Dioxide Level 22 mmol/L (21-32) 23 mmol/L (21-32) Anion Gap 13 (6-14) 11 (6-14) Blood Urea Nitrogen 9 mg/dL (7-20) 8 mg/dL (7-20) Creatinine 0.7 mg/dL (0.6-1.0) 0.8 mg/dL (0.6-1.0) Estimated GFR (Cockcroft-Gault) 104.4 89.5 Glucose Level 88 mg/dL (70-99) 89 mg/dL (70-99) Calcium Level 7.2 mg/dL (8.5-10.1) 7.3 mg/dL (8.5-10.1) 6.9 mg/dL (8.5-10.1) Magnesium Level 1.2 mg/dL (1.8-2.4) 1.2 mg/dL (1.8-2.4) Thyroid Stimulating Hormone (TSH) 6.453 uIU/mL (0.358-3.74) Laboratory Tests Test 05/05/17 19:40 05/06/17 03:30 Potassium Level 3.4 mmol/L (3.5-5.1) 3.4 mmol/L (3.5-5.1) Calcium Level 7.3 mg/dL (8.5-10.1) 6.9 mg/dL (8.5-10.1) Magnesium Level 1.2 mg/dL (1.8-2.4) 1.2 mg/dL (1.8-2.4) White Blood Count 6.5 x10^3/uL (4.0-11.0) Red Blood Count 3.09 x10^6/uL (3.50-5.40) Hemoglobin 9.2 g/dL (12.0-15.5) Hematocrit 27.4 % (36.0-47.0) Mean Corpuscular Volume 89 fL (79-100) Mean Corpuscular Hemoglobin 30 pg (25-35) Mean Corpuscular Hemoglobin Concent 34 g/dL (31-37) Red Cell Distribution Width 19.9 % (11.5-14.5) Platelet Count 445 x10^3/uL (140-400) Neutrophils (%) (Auto) 74 % (31-73) Lymphocytes (%) (Auto) 17 % (24-48) Monocytes (%) (Auto) 9 % (0-9) Eosinophils (%) (Auto) 0 % (0-3) Basophils (%) (Auto) 0 % (0-3) Neutrophils # (Auto) 4.8 x10^3uL (1.8-7.7) Lymphocytes # (Auto) 1.1 x10^3/uL (1.0-4.8) Monocytes # (Auto) 0.6 x10^3/uL (0.0-1.1) Eosinophils # (Auto) 0.0 x10^3/uL (0.0-0.7) Basophils # (Auto) 0.0 x10^3/uL (0.0-0.2) Sodium Level 141 mmol/L (136-145) Chloride Level 107 mmol/L (98-107) Carbon Dioxide Level 23 mmol/L (21-32) Anion Gap 11 (6-14) Blood Urea Nitrogen 8 mg/dL (7-20) Creatinine 0.8 mg/dL (0.6-1.0) Estimated GFR (Cockcroft-Gault) 89.5 Glucose Level 89 mg/dL (70-99) Thyroid Stimulating Hormone (TSH) 6.453 uIU/mL (0.358-3.74) Microbiology 05/04/17 Blood Culture - Preliminary, Resulted NO GROWTH AFTER 1 DAY Medications Current Medications Sodium Chloride 1,000 ml @ 1,000 mls/hr 1X ONCE IV Last administered on 05/04 16:12; Start 05/04/17 at 15:30; Stop 05/04/17 at 16:29; Status DC Iohexol (Omnipaque 300 Mg/ml) 75 ml 1X ONCE IV Last administered on 16:36; Start 05/04/17 at 16:00; Stop 05/04/17 at 16:01; Status DC Info (Do NOT chart on this entry -- for MONITORING) 1 each PRN DAILY PRN MC SEE COMMENTS; Start 05/04/17 at 16:00; Stop 05/06/17 at 15:59 Vancomycin HCl (Vanco Per Pharmacy) 1 each PRN DAILY PRN MC SEE COMMENTS Last administered on 05/05/17 12:29; Start 05/04/17 at 16:45 Ceftriaxone Sodium 50 ml @ 100 mls/hr 1X ONCE IV Last administered on 16:57; Start 05/04/17 at 16:45; Stop 05/04/17 at 17:14; Status DC Vancomycin HCl 1.25 gm/Dextrose/ Sodium Chloride 250 ml @ 166.667 mls/hr 1X ONCE IV Last administered on 05/04/17 17:33; Start 05/04/17 at 16:45; Stop 05/04/17 at 18:14; Status DC Sodium Chloride 1,000 ml @ 1,000 mls/hr 1X ONCE IV Last administered on 05/04 17:36; Start 05/04/17 at 17:30; Stop 05/04/17 at 18:29; Status DC Ondansetron HCl (Zofran) 4 mg PRN Q8HRS PRN IV NAUSEA/VOMITING; Start at 17:30; Stop 05/05/17 at 17:29; Status DC Fentanyl Citrate (Fentanyl 2ml Vial) 50 mcg PRN Q2HR PRN IV PAIN Last administered on 05/05/17 10:13; Start 05/04/17 at 17:30; Stop 05/05/17 at 17 :29; Status DC Acetaminophen (Tylenol) 650 mg PRN Q4HRS PRN PO FEVER; Start 05/04/17 at 17:30 ; Stop 05/05/17 at 17:29; Status DC Gabapentin (Neurontin) 300 mg BID PO Last administered on 05/06/17 08:31; Start 05/04/17 at 21:00 Levothyroxine Sodium (Synthroid) 50 mcg DAILY06 PO Last administered on 06:11; Start 05/05/17 at 06:00 Acetaminophen (Tylenol) 650 mg PRN Q4HRS PRN PO MILD PAIN / TEMP Last administered on 05/06/17 00:28; Start 05/04/17 at 18:15 Magnesium Hydroxide (Milk Of Magnesia) 2,400 mg PRN DAILY PRN PO CONSTIPATION; Start 05/04/17 at 18:15 Ondansetron HCl (Zofran) 4 mg PRN Q6HRS PRN IV NAUSEA/VOMITING Last administered on 05/05/17 02:55; Start 05/04/17 at 18:15 Atorvastatin Calcium (Lipitor) 20 mg QHS PO Last administered on 05/05/17 20: 57; Start 05/04/17 at 21:00 Aspirin (Evy Aspirin) 325 mg DAILY PO Last administered on 05/06/17 08:31; Start 05/04/17 at 19:00 Vancomycin HCl 750 mg/Sodium Chloride 250 ml @ 250 mls/hr Q24H IV ; Start at 17:30; Stop 05/05/17 at 17:30; Status DC Vancomycin HCl 1 each 1X ONCE MC ; Start 05/06/17 at 17:00; Stop 05/06/17 at 17:01 Info (Do NOT chart on this placeholder) 1 each 1X ONCE MC ; Start 05/05/17 at 01:45; Stop 05/05/17 at 01:46; Status UNV Influenza Virus Vaccine Quadrival (Fluarix Quad 4612-1212 Syringe) 0.5 ml ONCE ONCE VAX IM Last administered on 05/05/17 10:18; Start 05/05/17 at 09:00; Stop 05/05/17 at 09:01; Status DC Lactobacillus Rhamnosus (Culturelle) 1 cap BID PO Last administered on 08:31; Start 05/05/17 at 21:00 Potassium Chloride (Klor-Con) 40 meq 1X ONCE PO ; Start 05/05/17 at 12:45; Stop 05/05/17 at 12:49; Status DC Metoprolol Succinate (Toprol Xl) 50 mg DAILY PO Last administered on 08:31; Start 05/05/17 at 13:00 Ceftriaxone Sodium 1 gm/ Dextrose 50 ml @ 100 mls/hr Q24H IV ; Start 05/05/17 at 16:45; Status UNV Vancomycin HCl 750 mg/Dextrose/ Sodium Chloride 250 ml @ 250 mls/hr Q24H IV Last administered on 05/05/17 18:01; Start 05/05/17 at 17:30 Ceftriaxone Sodium (Rocephin) 1 gm Q24H IVP Last administered on 05/05/17 17: 59; Start 05/05/17 at 16:00 Potassium Chloride (Klor-Con) 40 meq 1X ONCE PO Last administered on 20:56; Start 05/05/17 at 19:30; Stop 05/05/17 at 19:32; Status DC Potassium Chloride (Klor-Con) 40 meq 1X ONCE PO ; Start 05/06/17 at 10:45; Stop 05/06/17 at 10:46; Status UNV Magnesium Sulfate/ Dextrose 100 ml @ 25 mls/hr 1X ONCE IV ; Start 05/06/17 at 10:45; Stop 05/06/17 at 14:44; Status UNV Active Scripts Active Toprol Xl (Metoprolol Succinate) 50 Mg Tab.er.24h 50 Mg PO DAILY Gabapentin 300 Mg Capsule 300 Mg PO BID Cefpodoxime Proxetil 200 Mg Tablet 200 Mg PO BID Reported Aspirin 81 Mg Tab.chew 1 Tab PO DAILY Levothyroxine Sodium 50 Mcg Tablet 1 Tab PO DAILY Atorvastatin Calcium 20 Mg Tablet 1 Tab PO HS Vitals/I & O Vital Sign - Last 24 Hours 05/05/17 05/05/17 05/05/17 05/05/17 11:00 11:39 15:34 17:59 Temp 97.6 98.0 97.6 98.0 Pulse 71 82 82 Resp 19 19 B/P (MAP) 105/54 (71) 113/67 (82) 113/67 Pulse Ox 97 99 O2 Delivery Room Air Room Air Room Air 05/05/17 05/05/17 05/05/17 05/06/17 19:00 20:00 23:42 03:15 Temp 97.9 98.7 98.7 97.9 98.7 98.7 Pulse 108 105 103 Resp 18 18 18 B/P (MAP) 115/69 (84) 99/62 (74) 95/52 (66) Pulse Ox 98 98 98 O2 Delivery Room Air Room Air Room Air Room Air 05/06/17 05/06/17 05/06/17 07:25 08:18 08:31 Temp 98.2 98.2 Pulse 98 98 Resp 18 B/P (MAP) 105/65 (78) 105/65 Pulse Ox 99 O2 Delivery Room Air Room Air Intake and Output 05/05/17 05/05/17 05/06/17 15:00 23:00 07:00 Intake Total 360 ml 60 ml Output Total 200 ml 200 ml Balance 160 ml -140 ml GLO SPEARS MD May 06, 2017 10:54
[2017-05-06 11:00] VITALS: BP 96/64
[2017-05-06] MEDS ORDERED: POTASSIUM CHLORIDE 20 MEQ TABLET.ER. PO ONE (11:00)
[2017-05-06] MEDS ORDERED: MAGNESIUM SULFATE 4GM 100 ML IV ONE (11:00)
--- NOTE | 2017-05-06 13:58 | PDOC2 ---
CONSULT Date of Consult Date of Consult DATE: 05/06/17 TIME: 13:52 Reason for Consult Reason for Consult: Nonsustained ventricular tachycardia Referring Physician Referring Physician: Dr. Mireles Identification/Chief Complaint Chief Complaint Left-sided weakness Problems: Source Source: Chart review, Patient History of Present Illness Reason for Visit: The patient is a 56-year-old female who was admitted several days ago for increasing left-sided weakness. She has a history of a previous CVA and has been undergoing a evaluation including a neurology evaluation and examination of her increased lactic acid. We've been asked to review the patient secondary to an approximately 15 beat run of nonsustained ventricular tachycardia. The patient reports feeling better today. She denies any chest pain or lightheadedness. She denies any history of coronary artery disease or congestive heart failure. She does have a history of hypertension, hyperlipidemia and a previous CVA. EKG shows a sinus tachycardia with nonspecific ST-T wave changes. Lab testing shows a magnesium of 1.2 a potassium of 3.0 yesterday and a TSH elevated at 6.453. Past Medical History Cardiovascular: HTN, Hyperlipidemia CENTRAL NERVOUS SYSTEM: CVA Musculoskeletal: Osteoarthritis Endocrine: Hypothyroidism Family History Family History: No Significant Social History No ALCOHOL: none Lives: with Family Current Problem List Problem List Problems Medical Problems: (1) Lactic acidosis Status: Acute (2) Paresthesias Status: Acute (3) Tachycardia Status: Acute Current Medications Current Medications Current Medications Sodium Chloride 1,000 ml @ 1,000 mls/hr 1X ONCE IV Last administered on 05/04 16:12; Start 05/04/17 at 15:30; Stop 05/04/17 at 16:29; Status DC Iohexol (Omnipaque 300 Mg/ml) 75 ml 1X ONCE IV Last administered on 16:36; Start 05/04/17 at 16:00; Stop 05/04/17 at 16:01; Status DC Info (Do NOT chart on this entry -- for MONITORING) 1 each PRN DAILY PRN MC SEE COMMENTS; Start 05/04/17 at 16:00; Stop 05/06/17 at 15:59 Vancomycin HCl (Vanco Per Pharmacy) 1 each PRN DAILY PRN MC SEE COMMENTS Last administered on 05/05/17 12:29; Start 05/04/17 at 16:45 Ceftriaxone Sodium 50 ml @ 100 mls/hr 1X ONCE IV Last administered on 16:57; Start 05/04/17 at 16:45; Stop 05/04/17 at 17:14; Status DC Vancomycin HCl 1.25 gm/Dextrose/ Sodium Chloride 250 ml @ 166.667 mls/hr 1X ONCE IV Last administered on 05/04/17 17:33; Start 05/04/17 at 16:45; Stop 05/04/17 at 18:14; Status DC Sodium Chloride 1,000 ml @ 1,000 mls/hr 1X ONCE IV Last administered on 05/04 17:36; Start 05/04/17 at 17:30; Stop 05/04/17 at 18:29; Status DC Ondansetron HCl (Zofran) 4 mg PRN Q8HRS PRN IV NAUSEA/VOMITING; Start at 17:30; Stop 05/05/17 at 17:29; Status DC Fentanyl Citrate (Fentanyl 2ml Vial) 50 mcg PRN Q2HR PRN IV PAIN Last administered on 05/05/17 10:13; Start 05/04/17 at 17:30; Stop 05/05/17 at 17 :29; Status DC Acetaminophen (Tylenol) 650 mg PRN Q4HRS PRN PO FEVER; Start 05/04/17 at 17:30 ; Stop 05/05/17 at 17:29; Status DC Gabapentin (Neurontin) 300 mg BID PO Last administered on 05/06/17 08:31; Start 05/04/17 at 21:00 Levothyroxine Sodium (Synthroid) 50 mcg DAILY06 PO Last administered on 06:11; Start 05/05/17 at 06:00 Acetaminophen (Tylenol) 650 mg PRN Q4HRS PRN PO MILD PAIN / TEMP Last administered on 05/06/17 00:28; Start 05/04/17 at 18:15 Magnesium Hydroxide (Milk Of Magnesia) 2,400 mg PRN DAILY PRN PO CONSTIPATION; Start 05/04/17 at 18:15 Ondansetron HCl (Zofran) 4 mg PRN Q6HRS PRN IV NAUSEA/VOMITING Last administered on 05/05/17 02:55; Start 05/04/17 at 18:15 Atorvastatin Calcium (Lipitor) 20 mg QHS PO Last administered on 05/05/17 20: 57; Start 05/04/17 at 21:00 Aspirin (Evy Aspirin) 325 mg DAILY PO Last administered on 05/06/17 08:31; Start 05/04/17 at 19:00 Vancomycin HCl 750 mg/Sodium Chloride 250 ml @ 250 mls/hr Q24H IV ; Start at 17:30; Stop 05/05/17 at 17:30; Status DC Vancomycin HCl 1 each 1X ONCE MC ; Start 05/06/17 at 17:00; Stop 05/06/17 at 17:01 Info (Do NOT chart on this placeholder) 1 each 1X ONCE MC ; Start 05/05/17 at 01:45; Stop 05/05/17 at 01:46; Status UNV Influenza Virus Vaccine Quadrival (Fluarix Quad [id number] Syringe) 0.5 ml ONCE ONCE VAX IM Last administered on 05/05/17 10:18; Start 05/05/17 at 09:00; Stop 05/05/17 at 09:01; Status DC Lactobacillus Rhamnosus (Culturelle) 1 cap BID PO Last administered on 08:31; Start 05/05/17 at 21:00 Potassium Chloride (Klor-Con) 40 meq 1X ONCE PO ; Start 05/05/17 at 12:45; Stop 05/05/17 at 12:49; Status DC Metoprolol Succinate (Toprol Xl) 50 mg DAILY PO Last administered on 08:31; Start 05/05/17 at 13:00 Ceftriaxone Sodium 1 gm/ Dextrose 50 ml @ 100 mls/hr Q24H IV ; Start 05/05/17 at 16:45; Status UNV Vancomycin HCl 750 mg/Dextrose/ Sodium Chloride 250 ml @ 250 mls/hr Q24H IV Last administered on 05/05/17 18:01; Start 05/05/17 at 17:30 Ceftriaxone Sodium (Rocephin) 1 gm Q24H IVP Last administered on 05/05/17 17: 59; Start 05/05/17 at 16:00 Potassium Chloride (Klor-Con) 40 meq 1X ONCE PO Last administered on 20:56; Start 05/05/17 at 19:30; Stop 05/05/17 at 19:32; Status DC Potassium Chloride (Klor-Con) 40 meq 1X ONCE PO Last administered on 11:01; Start 05/06/17 at 11:00; Stop 05/06/17 at 11:01; Status DC Magnesium Sulfate/ Dextrose 100 ml @ 25 mls/hr 1X ONCE IV Last administered on 05/06/17 11:01; Start 05/06/17 at 11:00; Stop 05/06/17 at 14:59 Active Scripts Active Toprol Xl (Metoprolol Succinate) 50 Mg Tab.er.24h 50 Mg PO DAILY Gabapentin 300 Mg Capsule 300 Mg PO BID Cefpodoxime Proxetil 200 Mg Tablet 200 Mg PO BID Reported Aspirin 81 Mg Tab.chew 1 Tab PO DAILY Levothyroxine Sodium 50 Mcg Tablet 1 Tab PO DAILY Atorvastatin Calcium 20 Mg Tablet 1 Tab PO HS Allergies Allergies: Coded Allergies: Penicillins (Verified Allergy, Intermediate, 05/05/17) Tolerates meropenem, CEFTRIAXONE apple (Verified Allergy, Intermediate, 11/06/15) orange juice (Verified Allergy, Intermediate, 11/15/14) strawberry (Verified Allergy, Intermediate, 11/15/14) ROS General: YES: Fatigue Neurological: Yes Numbness/Tingling Physical Exam General: No acute distress HEENT: Atraumatic Lungs: Other (slightly decreased breath sounds) Heart: Other (regular rhythm with a rate of 110) Abdomen: Normal bowel sounds Vitals VITALS Vital Signs Date Time Temp Pulse Resp B/P (MAP) Pulse Ox O2 Delivery O2 Flow Rate FiO2 05/06/17 11:00 97.9 99 20 96/64 (75) 99 Room Air 97.9 05/05/17 10:13 2.0 Labs Labs Laboratory Tests Test 05/04/17 15:07 05/04/17 15:27 05/04/17 19:30 05/05/17 07:00 Glucose (Fingerstick) 115 mg/dL (70-99) Prothrombin Time 12.1 SEC (11.7-14.0) Prothromb Time International Ratio 1.0 (0.8-1.1) Lactic Acid Level 0.8 mmol/L (0.4-2.0) White Blood Count 8.5 x10^3/uL (4.0-11.0) Red Blood Count 3.85 x10^6/uL (3.50-5.40) Hemoglobin 11.4 g/dL (12.0-15.5) Hematocrit 34.5 % (36.0-47.0) Mean Corpuscular Volume 90 fL (79-100) Mean Corpuscular Hemoglobin 30 pg (25-35) Mean Corpuscular Hemoglobin Concent 33 g/dL (31-37) Red Cell Distribution Width 19.9 % (11.5-14.5) Platelet Count 575 x10^3/uL (140-400) Neutrophils (%) (Auto) 81 % (31-73) Lymphocytes (%) (Auto) 13 % (24-48) Monocytes (%) (Auto) 6 % (0-9) Eosinophils (%) (Auto) 0 % (0-3) Basophils (%) (Auto) 0 % (0-3) Neutrophils # (Auto) 6.9 x10^3uL (1.8-7.7) Lymphocytes # (Auto) 1.1 x10^3/uL (1.0-4.8) Monocytes # (Auto) 0.5 x10^3/uL (0.0-1.1) Eosinophils # (Auto) 0.0 x10^3/uL (0.0-0.7) Basophils # (Auto) 0.0 x10^3/uL (0.0-0.2) Sodium Level 141 mmol/L (136-145) Potassium Level 3.0 mmol/L (3.5-5.1) Chloride Level 106 mmol/L (98-107) Carbon Dioxide Level 22 mmol/L (21-32) Anion Gap 13 (6-14) Blood Urea Nitrogen 9 mg/dL (7-20) Creatinine 0.7 mg/dL (0.6-1.0) Estimated GFR (Cockcroft-Gault) 104.4 Glucose Level 88 mg/dL (70-99) Calcium Level 7.2 mg/dL (8.5-10.1) Test 05/05/17 19:40 05/06/17 03:30 Potassium Level 3.4 mmol/L (3.5-5.1) 3.4 mmol/L (3.5-5.1) Calcium Level 7.3 mg/dL (8.5-10.1) 6.9 mg/dL (8.5-10.1) Magnesium Level 1.2 mg/dL (1.8-2.4) 1.2 mg/dL (1.8-2.4) White Blood Count 6.5 x10^3/uL (4.0-11.0) Red Blood Count 3.09 x10^6/uL (3.50-5.40) Hemoglobin 9.2 g/dL (12.0-15.5) Hematocrit 27.4 % (36.0-47.0) Mean Corpuscular Volume 89 fL (79-100) Mean Corpuscular Hemoglobin 30 pg (25-35) Mean Corpuscular Hemoglobin Concent 34 g/dL (31-37) Red Cell Distribution Width 19.9 % (11.5-14.5) Platelet Count 445 x10^3/uL (140-400) Neutrophils (%) (Auto) 74 % (31-73) Lymphocytes (%) (Auto) 17 % (24-48) Monocytes (%) (Auto) 9 % (0-9) Eosinophils (%) (Auto) 0 % (0-3) Basophils (%) (Auto) 0 % (0-3) Neutrophils # (Auto) 4.8 x10^3uL (1.8-7.7) Lymphocytes # (Auto) 1.1 x10^3/uL (1.0-4.8) Monocytes # (Auto) 0.6 x10^3/uL (0.0-1.1) Eosinophils # (Auto) 0.0 x10^3/uL (0.0-0.7) Basophils # (Auto) 0.0 x10^3/uL (0.0-0.2) Sodium Level 141 mmol/L (136-145) Chloride Level 107 mmol/L (98-107) Carbon Dioxide Level 23 mmol/L (21-32) Anion Gap 11 (6-14) Blood Urea Nitrogen 8 mg/dL (7-20) Creatinine 0.8 mg/dL (0.6-1.0) Estimated GFR (Cockcroft-Gault) 89.5 Glucose Level 89 mg/dL (70-99) Thyroid Stimulating Hormone (TSH) 6.453 uIU/mL (0.358-3.74) Laboratory Tests Test 05/05/17 19:40 05/06/17 03:30 Potassium Level 3.4 mmol/L (3.5-5.1) 3.4 mmol/L (3.5-5.1) Calcium Level 7.3 mg/dL (8.5-10.1) 6.9 mg/dL (8.5-10.1) Magnesium Level 1.2 mg/dL (1.8-2.4) 1.2 mg/dL (1.8-2.4) White Blood Count 6.5 x10^3/uL (4.0-11.0) Red Blood Count 3.09 x10^6/uL (3.50-5.40) Hemoglobin 9.2 g/dL (12.0-15.5) Hematocrit 27.4 % (36.0-47.0) Mean Corpuscular Volume 89 fL (79-100) Mean Corpuscular Hemoglobin 30 pg (25-35) Mean Corpuscular Hemoglobin Concent 34 g/dL (31-37) Red Cell Distribution Width 19.9 % (11.5-14.5) Platelet Count 445 x10^3/uL (140-400) Neutrophils (%) (Auto) 74 % (31-73) Lymphocytes (%) (Auto) 17 % (24-48) Monocytes (%) (Auto) 9 % (0-9) Eosinophils (%) (Auto) 0 % (0-3) Basophils (%) (Auto) 0 % (0-3) Neutrophils # (Auto) 4.8 x10^3uL (1.8-7.7) Lymphocytes # (Auto) 1.1 x10^3/uL (1.0-4.8) Monocytes # (Auto) 0.6 x10^3/uL (0.0-1.1) Eosinophils # (Auto) 0.0 x10^3/uL (0.0-0.7) Basophils # (Auto) 0.0 x10^3/uL (0.0-0.2) Sodium Level 141 mmol/L (136-145) Chloride Level 107 mmol/L (98-107) Carbon Dioxide Level 23 mmol/L (21-32) Anion Gap 11 (6-14) Blood Urea Nitrogen 8 mg/dL (7-20) Creatinine 0.8 mg/dL (0.6-1.0) Estimated GFR (Cockcroft-Gault) 89.5 Glucose Level 89 mg/dL (70-99) Thyroid Stimulating Hormone (TSH) 6.453 uIU/mL (0.358-3.74) Images Images Carotid ultrasound testing shows no significant lesions. Chest x-ray shows no acute processes. Assessment/Plan Assessment/Plan 1. Nonsustained ventricular tachycardia. Patient's rhythm has remained in a sinus tachycardia since that time. As noted above electrolytes were abnormal with a magnesium of 1.2 a potassium of 3.0 as well as an TSH level was 6.453. The patient has is being supplemented with potassium and magnesium. We'll monitor these levels. She is also been restarted on her beta blockers. We'll continue these treatments and check an echocardiogram. 2. History of CVA with neurological changes above. Workup by the neurology service. 3. Lactic acidosis. Again workup as above. 4. Hypertension. We'll adjust medications as needed. 5. Hyperlipidemia. Patient is on a statin medication. Thank you for allowing us to participate in the care of your patient. NELLIE MALONE MD May 06, 2017 13:58
[2017-05-06 15:00] VITALS: BP 87/47
[2017-05-06] MEDS: VANCOMYCIN PER PHARMACY MC PRN ×5 (15:21→18:11)
[2017-05-06] MEDS: cefTRIAXone IV Push 1 GM VIAL. IVP SCH (16:00)
--- NOTE | 2017-05-06 16:29 | CARD ---
APPROVED REPORT EXAM: LIMITED Two-dimensional and M-mode echocardiogram with Doppler, color Doppler with saline contr ast. Other Information Quality : GoodHR: 99bpm INDICATION CVA/TIA Echo Enhancing Agent Indication: Rule Out Septal Defect Agent/Amount Used: Agitated Saline 9mL 2D DIMENSIONS Left Atrium(2D)3.0 (1.6-4.0cm)IVSd0.9 (0.7-1.1cm) Aortic Root(2D)2.5 (2.0-3.7cm)LVDd3.5 (3.9-5.9cm) LVOT Diameter2.3 (1.8-2.4cm)PWd0.6 (0.7-1.1cm) LVDs2.3 (2.5-4.0cm)FS (%) 36.0 % SV35.0 mlLVEF(%)66.6 (>50%) CO3.5 L/min M-Mode DIMENSIONS Aortic Cusp Exc1.61 (1.5-2.0cm) Aortic Valve AoV Peak Jaiden.98.7cm/sAoV VTI16.0cm AO Peak GR.3.9mmHgLVOT VTI 12.35cm AO Mean GR.2mmHgAVA (VTI)4.80cm2 Mitral Valve MV E Gntajuft28.6cm/sMV DECEL [id number] MV A Opjbnryh52.8cm/sE/A Ratio1.1 MV A [id number] TDI Lateral E' P. V10.88cm/sMedial E' P. V10.75cm/s E/Lateral E'7.8E/Medial E'7.9 Tricuspid Valve TR P. Awvzrzli396hw/sTR Peak Gr.18mmHg Pulmonary Vein S1 Vlwqvoaa73.1cm/sS2 Vjuzfhfz01.05cm/s D2 Lgztbwpq08.0cm/s LEFT VENTRICLE The left ventricle cavity is mildly reduced. There is normal left ventricular wall thickness. The lef t ventricular systolic function is normal and the ejection fraction is within normal range. LV ejecti on fraction is 60-65%. There is normal LV segmental wall motion. No left ventricle thrombus noted on this study. There is no ventricular septal defect visualized. There is no left ventricular aneurysm. There is no mass noted in the left ventricle. RIGHT VENTRICLE The right ventricle is normal size. There is normal right ventricular wall thickness. The right ventr icular systolic function is normal. ATRIA The left atrium size is normal. The right atrium size is normal. The interatrial septum is intact wit h no evidence for an atrial septal defect or patent foramen ovale as noted on 2-D or Doppler imaging. Technically difficult but negative bubble study. AORTIC VALVE The aortic valve is normal in structure and function. Doppler and Color Flow revealed trace aortic re gurgitation. There is no significant aortic valvular stenosis. There is no aortic valvular vegetation . MITRAL VALVE The mitral valve is normal in structure and function. There is no evidence of mitral valve prolapse. There is no mitral valve stenosis. Doppler and Color-flow revealed mild mitral regurgitation. TRICUSPID VALVE The tricuspid valve is normal in structure and function. Doppler and Color Flow revealed mild tricusp id regurgitation. There is no tricuspid valve prolapse or vegetation. There is no tricuspid valve roderick nosis. PULMONIC VALVE The pulmonary valve is normal in structure and function. Doppler and Color Flow revealed no pulmonic valvular regurgitation. There is no pulmonic valvular stenosis. GREAT VESSELS The aortic root is normal in size. The ascending aorta is normal in size. The IVC is normal in size a nd collapses >50% with inspiration. PERICARDIAL EFFUSION There is no pleural effusion. There is no evidence of significant pericardial effusion. Critical Notification Critical Value: No <Conclusion> The left ventricle cavity is mildly reduced. The left ventricular systolic function is normal and the ejection fraction is within normal range. LV ejection fraction is 60-65%. The interatrial septum is intact with no evidence for an atrial septal defect or patent foramen ovale as noted on 2-D or Doppler imaging. Technically difficult but negative bubble study. There is no significant aortic valvular stenosis. Doppler and Color Flow revealed trace aortic regurgitation. Doppler and Color-flow revealed mild mitral regurgitation. Doppler and Color Flow revealed mild tricuspid regurgitation.
[2017-05-06] MEDS: VANCOMYCIN 750 MG in IV 1/2 NORMAL SALINE 250 ML IV SCH (18:21)
[2017-05-06 19:35] VITALS: BP 100/63
[2017-05-06] MEDS: ATORVASTATIN CALCIUM 20 MG TABLET PO SCH (20:55)
--- NOTE | 2017-05-06 21:11 | PDOC ---
PROGRESS NOTES Assessment Problems Medical Problems: (1) Lactic acidosis Status: Acute (2) Paresthesias Status: Acute (3) Tachycardia Status: Acute Problems: Plan 56-year-old female with history of CVA with left-sided weakness and baseline with patient woke up with symptoms of weakness on the left side which are currently improved. CTA head and neck did not show any evidence of acute intracranial abnormality. We will get the MRI brain no acute stroke We will continue aspirin for scantly stroke prevention. Check lipid profile. We will K Doppler, 2-D echo. Check for any infectious or metabolic etiology. PTOT evaluation. Continue statin for hyperlipidemia with a goal LDL less than 70. Continue stroke risk factor modification. Telemetry cards recs. Continue medical management. Subjective She is feeling better Objective There is no diffusion restriction. There are multiple bilateral chronic lacunar infarcts within the jarrod, thalami and right putamen. Hemosiderin within the right greater than left thalami indicates chronic hemorrhages. Additional small infarcts are seen within the bifrontal white matter, superimposed on moderate chronic microangiopathic white matter change elsewhere. The ventricles are normal in size and position. The paranasal sinuses are clear. The orbits are unremarkable. The temporal bones are unremarkable. The calvarium demonstrates no suspicious lesions. IMPRESSION: 1. No acute infarct. 2. Multiple chronic lacunar infarction superimposed on moderate chronic microangiopathic white matter change as above. Vital Signs Date Time Temp Pulse Resp B/P (MAP) Pulse Ox O2 Delivery O2 Flow Rate FiO2 05/06/17 19:58 Room Air 05/06/17 19:35 97.9 100 20 100/63 (75) 97 97.9 05/06/17 15:00 2.0 Intake and Output 05/06/17 07:00 Intake Total 420 ml Output Total 400 ml Balance 20 ml Intake Oral 420 ml Output Urine Total 400 ml PHYSICAL EXAM General appearance is in acute distress. HEENT: Normocephalic and nontraumatic. Eyes, nose, ears, and throat are unremarkable. Neck is supple. No lymphadenopathy. No crepitus. Cardiovascular: S1, S2, regular rate and rhythm. Pulmonary: Clear to auscultation bilaterally. Abdomen: Bowel sounds are positive. Abdomen is soft, nontender, and nondistended. NEUROLOGICAL EXAMINATION: Alert Oriented to time, place and person. PERRL. EOMI. CN: no focal findings. Muscle tone: within normal. Muscle strength: 5 on right side with left sided weakness DTR: 1-2 Plantar reflex: Flexor response bilaterally Gait: not examined in bed. Sensory exam: no abnormal findings. No obvious cerebellar signs elicited. Review of Relevant I have reviewed the following items maryam (where applicable) has been applied. Labs Laboratory Tests Test 05/05/17 07:00 05/05/17 19:40 05/06/17 03:30 05/06/17 17:00 White Blood Count 8.5 x10^3/uL (4.0-11.0) 6.5 x10^3/uL (4.0-11.0) Red Blood Count 3.85 x10^6/uL (3.50-5.40) 3.09 x10^6/uL (3.50-5.40) Hemoglobin 11.4 g/dL (12.0-15.5) 9.2 g/dL (12.0-15.5) Hematocrit 34.5 % (36.0-47.0) 27.4 % (36.0-47.0) Mean Corpuscular Volume 90 fL (79-100) 89 fL (79-100) Mean Corpuscular Hemoglobin 30 pg (25-35) 30 pg (25-35) Mean Corpuscular Hemoglobin Concent 33 g/dL (31-37) 34 g/dL (31-37) Red Cell Distribution Width 19.9 % (11.5-14.5) 19.9 % (11.5-14.5) Platelet Count 575 x10^3/uL (140-400) 445 x10^3/uL (140-400) Neutrophils (%) (Auto) 81 % (31-73) 74 % (31-73) Lymphocytes (%) (Auto) 13 % (24-48) 17 % (24-48) Monocytes (%) (Auto) 6 % (0-9) 9 % (0-9) Eosinophils (%) (Auto) 0 % (0-3) 0 % (0-3) Basophils (%) (Auto) 0 % (0-3) 0 % (0-3) Neutrophils # (Auto) 6.9 x10^3uL (1.8-7.7) 4.8 x10^3uL (1.8-7.7) Lymphocytes # (Auto) 1.1 x10^3/uL (1.0-4.8) 1.1 x10^3/uL (1.0-4.8) Monocytes # (Auto) 0.5 x10^3/uL (0.0-1.1) 0.6 x10^3/uL (0.0-1.1) Eosinophils # (Auto) 0.0 x10^3/uL (0.0-0.7) 0.0 x10^3/uL (0.0-0.7) Basophils # (Auto) 0.0 x10^3/uL (0.0-0.2) 0.0 x10^3/uL (0.0-0.2) Sodium Level 141 mmol/L (136-145) 141 mmol/L (136-145) Potassium Level 3.0 mmol/L (3.5-5.1) 3.4 mmol/L (3.5-5.1) 3.4 mmol/L (3.5-5.1) Chloride Level 106 mmol/L (98-107) 107 mmol/L (98-107) Carbon Dioxide Level 22 mmol/L (21-32) 23 mmol/L (21-32) Anion Gap 13 (6-14) 11 (6-14) Blood Urea Nitrogen 9 mg/dL (7-20) 8 mg/dL (7-20) Creatinine 0.7 mg/dL (0.6-1.0) 0.8 mg/dL (0.6-1.0) Estimated GFR (Cockcroft-Gault) 104.4 89.5 Glucose Level 88 mg/dL (70-99) 89 mg/dL (70-99) Calcium Level 7.2 mg/dL (8.5-10.1) 7.3 mg/dL (8.5-10.1) 6.9 mg/dL (8.5-10.1) Magnesium Level 1.2 mg/dL (1.8-2.4) 1.2 mg/dL (1.8-2.4) Thyroid Stimulating Hormone (TSH) 6.453 uIU/mL (0.358-3.74) Vancomycin Level Trough 11.1 mcg/mL (10.0-20.0) Vancomycin Last Dose Date Vancomycin Last Dose Time Laboratory Tests Test 05/06/17 03:30 05/06/17 17:00 White Blood Count 6.5 x10^3/uL (4.0-11.0) Red Blood Count 3.09 x10^6/uL (3.50-5.40) Hemoglobin 9.2 g/dL (12.0-15.5) Hematocrit 27.4 % (36.0-47.0) Mean Corpuscular Volume 89 fL (79-100) Mean Corpuscular Hemoglobin 30 pg (25-35) Mean Corpuscular Hemoglobin Concent 34 g/dL (31-37) Red Cell Distribution Width 19.9 % (11.5-14.5) Platelet Count 445 x10^3/uL (140-400) Neutrophils (%) (Auto) 74 % (31-73) Lymphocytes (%) (Auto) 17 % (24-48) Monocytes (%) (Auto) 9 % (0-9) Eosinophils (%) (Auto) 0 % (0-3) Basophils (%) (Auto) 0 % (0-3) Neutrophils # (Auto) 4.8 x10^3uL (1.8-7.7) Lymphocytes # (Auto) 1.1 x10^3/uL (1.0-4.8) Monocytes # (Auto) 0.6 x10^3/uL (0.0-1.1) Eosinophils # (Auto) 0.0 x10^3/uL (0.0-0.7) Basophils # (Auto) 0.0 x10^3/uL (0.0-0.2) Sodium Level 141 mmol/L (136-145) Potassium Level 3.4 mmol/L (3.5-5.1) Chloride Level 107 mmol/L (98-107) Carbon Dioxide Level 23 mmol/L (21-32) Anion Gap 11 (6-14) Blood Urea Nitrogen 8 mg/dL (7-20) Creatinine 0.8 mg/dL (0.6-1.0) Estimated GFR (Cockcroft-Gault) 89.5 Glucose Level 89 mg/dL (70-99) Calcium Level 6.9 mg/dL (8.5-10.1) Magnesium Level 1.2 mg/dL (1.8-2.4) Thyroid Stimulating Hormone (TSH) 6.453 uIU/mL (0.358-3.74) Vancomycin Level Trough 11.1 mcg/mL (10.0-20.0) Vancomycin Last Dose Date Vancomycin Last Dose Time Microbiology 05/04/17 Blood Culture - Preliminary, Resulted NO GROWTH AFTER 2 DAYS Medications Current Medications Sodium Chloride 1,000 ml @ 1,000 mls/hr 1X ONCE IV Last administered on 05/04 16:12; Start 05/04/17 at 15:30; Stop 05/04/17 at 16:29; Status DC Iohexol (Omnipaque 300 Mg/ml) 75 ml 1X ONCE IV Last administered on 16:36; Start 05/04/17 at 16:00; Stop 05/04/17 at 16:01; Status DC Info (Do NOT chart on this entry -- for MONITORING) 1 each PRN DAILY PRN MC SEE COMMENTS; Start 05/04/17 at 16:00; Stop 05/06/17 at 15:59; Status DC Vancomycin HCl (Vanco Per Pharmacy) 1 each PRN DAILY PRN MC SEE COMMENTS Last administered on 05/06/17 18:11; Start 05/04/17 at 16:45 Ceftriaxone Sodium 50 ml @ 100 mls/hr 1X ONCE IV Last administered on 16:57; Start 05/04/17 at 16:45; Stop 05/04/17 at 17:14; Status DC Vancomycin HCl 1.25 gm/Dextrose/ Sodium Chloride 250 ml @ 166.667 mls/hr 1X ONCE IV Last administered on 05/04/17 17:33; Start 05/04/17 at 16:45; Stop 05/04/17 at 18:14; Status DC Sodium Chloride 1,000 ml @ 1,000 mls/hr 1X ONCE IV Last administered on 05/04 17:36; Start 05/04/17 at 17:30; Stop 05/04/17 at 18:29; Status DC Ondansetron HCl (Zofran) 4 mg PRN Q8HRS PRN IV NAUSEA/VOMITING; Start at 17:30; Stop 05/05/17 at 17:29; Status DC Fentanyl Citrate (Fentanyl 2ml Vial) 50 mcg PRN Q2HR PRN IV PAIN Last administered on 05/05/17 10:13; Start 05/04/17 at 17:30; Stop 05/05/17 at 17 :29; Status DC Acetaminophen (Tylenol) 650 mg PRN Q4HRS PRN PO FEVER; Start 05/04/17 at 17:30 ; Stop 05/05/17 at 17:29; Status DC Gabapentin (Neurontin) 300 mg BID PO Last administered on 05/06/17 20:55; Start 05/04/17 at 21:00 Levothyroxine Sodium (Synthroid) 50 mcg DAILY06 PO Last administered on 06:11; Start 05/05/17 at 06:00 Acetaminophen (Tylenol) 650 mg PRN Q4HRS PRN PO MILD PAIN / TEMP Last administered on 05/06/17 00:28; Start 05/04/17 at 18:15 Magnesium Hydroxide (Milk Of Magnesia) 2,400 mg PRN DAILY PRN PO CONSTIPATION; Start 05/04/17 at 18:15 Ondansetron HCl (Zofran) 4 mg PRN Q6HRS PRN IV NAUSEA/VOMITING Last administered on 05/05/17 02:55; Start 05/04/17 at 18:15 Atorvastatin Calcium (Lipitor) 20 mg QHS PO Last administered on 05/06/17 20: 55; Start 05/04/17 at 21:00 Aspirin (Evy Aspirin) 325 mg DAILY PO Last administered on 05/06/17 08:31; Start 05/04/17 at 19:00 Vancomycin HCl 750 mg/Sodium Chloride 250 ml @ 250 mls/hr Q24H IV ; Start at 17:30; Stop 05/05/17 at 17:30; Status DC Vancomycin HCl 1 each 1X ONCE MC Last administered on 05/06/17 17:00; Start 05/06/17 at 17:00; Stop 05/06/17 at 17:01; Status DC Info (Do NOT chart on this placeholder) 1 each 1X ONCE MC ; Start 05/05/17 at 01:45; Stop 05/05/17 at 01:46; Status UNV Influenza Virus Vaccine Quadrival (Fluarix Quad 3788-0561 Syringe) 0.5 ml ONCE ONCE VAX IM Last administered on 05/05/17 10:18; Start 05/05/17 at 09:00; Stop 05/05/17 at 09:01; Status DC Lactobacillus Rhamnosus (Culturelle) 1 cap BID PO Last administered on 20:55; Start 05/05/17 at 21:00 Potassium Chloride (Klor-Con) 40 meq 1X ONCE PO ; Start 05/05/17 at 12:45; Stop 05/05/17 at 12:49; Status DC Metoprolol Succinate (Toprol Xl) 50 mg DAILY PO Last administered on 08:31; Start 05/05/17 at 13:00 Ceftriaxone Sodium 1 gm/ Dextrose 50 ml @ 100 mls/hr Q24H IV ; Start 05/05/17 at 16:45; Status UNV Vancomycin HCl 750 mg/Dextrose/ Sodium Chloride 250 ml @ 250 mls/hr Q24H IV Last administered on 05/05/17 18:01; Start 05/05/17 at 17:30; Stop 05/06/17 at 18:08; Status DC Ceftriaxone Sodium (Rocephin) 1 gm Q24H IVP Last administered on 05/06/17 16: 00; Start 05/05/17 at 16:00 Potassium Chloride (Klor-Con) 40 meq 1X ONCE PO Last administered on 20:56; Start 05/05/17 at 19:30; Stop 05/05/17 at 19:32; Status DC Potassium Chloride (Klor-Con) 40 meq 1X ONCE PO Last administered on 11:01; Start 05/06/17 at 11:00; Stop 05/06/17 at 11:01; Status DC Magnesium Sulfate/ Dextrose 100 ml @ 25 mls/hr 1X ONCE IV Last administered on 05/06/17 11:01; Start 05/06/17 at 11:00; Stop 05/06/17 at 14:59; Status DC Vancomycin HCl 750 mg/Sodium Chloride 250 ml @ 250 mls/hr Q12H IV Last administered on 05/06/17 18:21; Start 05/06/17 at 18:30 Active Scripts Active Toprol Xl (Metoprolol Succinate) 50 Mg Tab.er.24h 50 Mg PO DAILY Gabapentin 300 Mg Capsule 300 Mg PO BID Cefpodoxime Proxetil 200 Mg Tablet 200 Mg PO BID Reported Aspirin 81 Mg Tab.chew 1 Tab PO DAILY Levothyroxine Sodium 50 Mcg Tablet 1 Tab PO DAILY Atorvastatin Calcium 20 Mg Tablet 1 Tab PO HS Vitals/I & O Vital Sign - Last 24 Hours 05/05/17 05/06/17 05/06/17 05/06/17 23:42 03:15 07:25 08:18 Temp 98.7 98.7 98.2 98.7 98.7 98.2 Pulse 105 103 98 Resp 18 18 18 B/P (MAP) 99/62 (74) 95/52 (66) 105/65 (78) Pulse Ox 98 98 99 O2 Delivery Room Air Room Air Room Air Room Air 05/06/17 05/06/17 05/06/17 05/06/17 08:31 11:00 15:00 19:35 Temp 97.9 98.1 97.9 97.9 98.1 97.9 Pulse 98 99 53 100 Resp 20 20 20 B/P (MAP) 105/65 96/64 (75) 87/47 (60) 100/63 (75) Pulse Ox 99 94 97 O2 Delivery Room Air Nasal Cannula Room Air O2 Flow Rate 2.0 05/06/17 19:58 O2 Delivery Room Air Intake and Output 05/05/17 05/05/17 05/06/17 15:00 23:00 07:00 Intake Total 360 ml 60 ml Output Total 200 ml 200 ml Balance 160 ml -140 ml TYLER KENT MD May 06, 2017 21:11
[2017-05-06 23:24] VITALS: BP 139/69
[2017-05-07] MEDS: ONDANSETRON PF 4 MG/2 ML VIAL. IV PRN ×2 (01:24→08:46)
[2017-05-07 02:36] VITALS: BP 106/57
[2017-05-07 02:42] LABS: NEG OBC FOB NEG; POS OBC FOB POS
[2017-05-07 04:41] LABS: BASO % 0 % (0-3); EOS % 0 % (0-3); HEMATOCRIT 29.5 % (36.0-47.0); HEMOGLOBIN 9.8 g/dL (12.0-15.5); LYMPH # 0.9 x10^3/uL (1.0-4.8); LYMPH % 15 % (24-48); MEAN CORPUSCULAR HEMOGLOBIN 30 pg (25-35); MEAN CORPUSCULAR HGB CONC 33 g/dL (31-37); MEAN CORPUSCULAR VOLUME 90 fL (79-100); MONO % 8 % (0-9); NEUT % 77 % (31-73); PLATELET COUNT 450 x10^3/uL (140-400); RED BLOOD COUNT 3.27 x10^6/uL (3.50-5.40); RED CELL DISTRIBUTION WIDTH 19.8 % (11.5-14.5); WHITE BLOOD COUNT 6.1 x10^3/uL (4.0-11.0)
[2017-05-07 05:00] LABS: CALCIUM 6.8 mg/dL (8.5-10.1); CREATININE 0.7 mg/dL (0.6-1.0); GFR 104.4; MAGNESIUM 2.2 mg/dL (1.8-2.4); POTASSIUM 3.9 mmol/L (3.5-5.1)
[2017-05-07 05:19] LABS: % SAT IRON 38 % (15-34); IRON,SERUM 39 ug/dL (50-170)
[2017-05-07] MEDS: LEVOTHYROXINE 50 MCG TABLET PO SCH (05:42)
[2017-05-07] MEDS: VANCOMYCIN 750 MG in IV 1/2 NORMAL SALINE 250 ML IV SCH (05:42)
[2017-05-07 07:00] VITALS: BP_SYST 112; BP_SYST 12; BP_DIAS 68
[2017-05-07] MEDS: ASPIRIN 325 MG TABLET PO SCH (08:28)
[2017-05-07] MEDS: LACTOBACILLUS RHAMNOSUS GG 1 CAPSULE. PO SCH ×2 (08:28→20:33)
[2017-05-07] MEDS: METOPROLOL SUCC 24HR ER 50 MG TAB.ER.24H. PO SCH (08:29)
[2017-05-07] MEDS: GABAPENTIN 300 MG CAPSULE. PO SCH ×2 (08:29→20:33)
[2017-05-07] MEDS ORDERED: ONDANSETRON ODT 4 MG TAB.RAPDIS. PO PRN (09:00)
--- NOTE | 2017-05-07 09:04 | PDOC ---
PROGRESS NOTES Subjective Subjective some nausea last night. will order prn zofran. echo and carotid doppler okay. labs reviewed. iron studies consistent with anemia of chronic disease. blood cultures negative. Objective Objective Vital Signs Date Time Temp Pulse Resp B/P (MAP) Pulse Ox O2 Delivery O2 Flow Rate FiO2 05/07/17 08:29 101 112/68 05/07/17 07:56 Room Air 05/07/17 02:36 98.6 21 97 98.6 05/06/17 15:00 2.0 Intake and Output 05/07/17 07:00 Intake Total 1153 ml Output Total 875 ml Balance 278 ml Intake Oral 1053 ml IV Total 100 ml Output Urine Total 875 ml # Voids 1 # Bowel Movements 1 Physical Exam Abdomen: Soft, No tenderness Heart: Regular rate, Normal S1, Normal S2 Extremities: No edema General: Alert HEENT: Atraumatic Lungs: Clear to auscultation Neuro: Normal speech, Other (chronic spastic left hemiparesis) Psych/Mental Status: Mental status NL Skin: No rashes Assessment Assessment Problems Medical Problems: (1) Lactic acidosis Status: Acute (2) Paresthesias Status: Acute (3) Tachycardia Status: Acute Plan Plan of Care [facility] screen PT and OT zofran prn dismiss today to MAR if accepted d/c antibiotics if okay with ID Comment Review of Relevant I have reviewed the following items maryam (where applicable) has been applied. Labs Laboratory Tests Test 05/05/17 19:40 05/06/17 03:30 05/06/17 17:00 05/07/17 01:58 Potassium Level 3.4 mmol/L (3.5-5.1) 3.4 mmol/L (3.5-5.1) Calcium Level 7.3 mg/dL (8.5-10.1) 6.9 mg/dL (8.5-10.1) Magnesium Level 1.2 mg/dL (1.8-2.4) 1.2 mg/dL (1.8-2.4) White Blood Count 6.5 x10^3/uL (4.0-11.0) Red Blood Count 3.09 x10^6/uL (3.50-5.40) Hemoglobin 9.2 g/dL (12.0-15.5) Hematocrit 27.4 % (36.0-47.0) Mean Corpuscular Volume 89 fL (79-100) Mean Corpuscular Hemoglobin 30 pg (25-35) Mean Corpuscular Hemoglobin Concent 34 g/dL (31-37) Red Cell Distribution Width 19.9 % (11.5-14.5) Platelet Count 445 x10^3/uL (140-400) Neutrophils (%) (Auto) 74 % (31-73) Lymphocytes (%) (Auto) 17 % (24-48) Monocytes (%) (Auto) 9 % (0-9) Eosinophils (%) (Auto) 0 % (0-3) Basophils (%) (Auto) 0 % (0-3) Neutrophils # (Auto) 4.8 x10^3uL (1.8-7.7) Lymphocytes # (Auto) 1.1 x10^3/uL (1.0-4.8) Monocytes # (Auto) 0.6 x10^3/uL (0.0-1.1) Eosinophils # (Auto) 0.0 x10^3/uL (0.0-0.7) Basophils # (Auto) 0.0 x10^3/uL (0.0-0.2) Sodium Level 141 mmol/L (136-145) Chloride Level 107 mmol/L (98-107) Carbon Dioxide Level 23 mmol/L (21-32) Anion Gap 11 (6-14) Blood Urea Nitrogen 8 mg/dL (7-20) Creatinine 0.8 mg/dL (0.6-1.0) Estimated GFR (Cockcroft-Gault) 89.5 Glucose Level 89 mg/dL (70-99) Thyroid Stimulating Hormone (TSH) 6.453 uIU/mL (0.358-3.74) Vancomycin Level Trough 11.1 mcg/mL (10.0-20.0) Vancomycin Last Dose Date Vancomycin Last Dose Time Stool Occult Blood Negative (NEG) Test 05/07/17 03:45 White Blood Count 6.1 x10^3/uL (4.0-11.0) Red Blood Count 3.27 x10^6/uL (3.50-5.40) Hemoglobin 9.8 g/dL (12.0-15.5) Hematocrit 29.5 % (36.0-47.0) Mean Corpuscular Volume 90 fL (79-100) Mean Corpuscular Hemoglobin 30 pg (25-35) Mean Corpuscular Hemoglobin Concent 33 g/dL (31-37) Red Cell Distribution Width 19.8 % (11.5-14.5) Platelet Count 450 x10^3/uL (140-400) Neutrophils (%) (Auto) 77 % (31-73) Lymphocytes (%) (Auto) 15 % (24-48) Monocytes (%) (Auto) 8 % (0-9) Eosinophils (%) (Auto) 0 % (0-3) Basophils (%) (Auto) 0 % (0-3) Neutrophils # (Auto) 4.7 x10^3uL (1.8-7.7) Lymphocytes # (Auto) 0.9 x10^3/uL (1.0-4.8) Monocytes # (Auto) 0.5 x10^3/uL (0.0-1.1) Eosinophils # (Auto) 0.0 x10^3/uL (0.0-0.7) Basophils # (Auto) 0.0 x10^3/uL (0.0-0.2) Sodium Level 141 mmol/L (136-145) Potassium Level 3.9 mmol/L (3.5-5.1) Chloride Level 107 mmol/L (98-107) Carbon Dioxide Level 23 mmol/L (21-32) Anion Gap 11 (6-14) Blood Urea Nitrogen 6 mg/dL (7-20) Creatinine 0.7 mg/dL (0.6-1.0) Estimated GFR (Cockcroft-Gault) 104.4 Glucose Level 107 mg/dL (70-99) Calcium Level 6.8 mg/dL (8.5-10.1) Magnesium Level 2.2 mg/dL (1.8-2.4) Iron Level 39 ug/dL (50-170) Total Iron Binding Capacity 102 ug/dL (250-450) Iron Saturation 38 % (15-34) Ferritin 232 ng/mL (8-252) Laboratory Tests Test 05/06/17 17:00 05/07/17 01:58 05/07/17 03:45 Vancomycin Level Trough 11.1 mcg/mL (10.0-20.0) Vancomycin Last Dose Date Vancomycin Last Dose Time Stool Occult Blood Negative (NEG) White Blood Count 6.1 x10^3/uL (4.0-11.0) Red Blood Count 3.27 x10^6/uL (3.50-5.40) Hemoglobin 9.8 g/dL (12.0-15.5) Hematocrit 29.5 % (36.0-47.0) Mean Corpuscular Volume 90 fL (79-100) Mean Corpuscular Hemoglobin 30 pg (25-35) Mean Corpuscular Hemoglobin Concent 33 g/dL (31-37) Red Cell Distribution Width 19.8 % (11.5-14.5) Platelet Count 450 x10^3/uL (140-400) Neutrophils (%) (Auto) 77 % (31-73) Lymphocytes (%) (Auto) 15 % (24-48) Monocytes (%) (Auto) 8 % (0-9) Eosinophils (%) (Auto) 0 % (0-3) Basophils (%) (Auto) 0 % (0-3) Neutrophils # (Auto) 4.7 x10^3uL (1.8-7.7) Lymphocytes # (Auto) 0.9 x10^3/uL (1.0-4.8) Monocytes # (Auto) 0.5 x10^3/uL (0.0-1.1) Eosinophils # (Auto) 0.0 x10^3/uL (0.0-0.7) Basophils # (Auto) 0.0 x10^3/uL (0.0-0.2) Sodium Level 141 mmol/L (136-145) Potassium Level 3.9 mmol/L (3.5-5.1) Chloride Level 107 mmol/L (98-107) Carbon Dioxide Level 23 mmol/L (21-32) Anion Gap 11 (6-14) Blood Urea Nitrogen 6 mg/dL (7-20) Creatinine 0.7 mg/dL (0.6-1.0) Estimated GFR (Cockcroft-Gault) 104.4 Glucose Level 107 mg/dL (70-99) Calcium Level 6.8 mg/dL (8.5-10.1) Magnesium Level 2.2 mg/dL (1.8-2.4) Iron Level 39 ug/dL (50-170) Total Iron Binding Capacity 102 ug/dL (250-450) Iron Saturation 38 % (15-34) Ferritin 232 ng/mL (8-252) Microbiology 05/04/17 Blood Culture - Preliminary, Resulted NO GROWTH AFTER 2 DAYS Medications Current Medications Sodium Chloride 1,000 ml @ 1,000 mls/hr 1X ONCE IV Last administered on 05/04 16:12; Start 05/04/17 at 15:30; Stop 05/04/17 at 16:29; Status DC Iohexol (Omnipaque 300 Mg/ml) 75 ml 1X ONCE IV Last administered on 16:36; Start 05/04/17 at 16:00; Stop 05/04/17 at 16:01; Status DC Info (Do NOT chart on this entry -- for MONITORING) 1 each PRN DAILY PRN MC SEE COMMENTS; Start 05/04/17 at 16:00; Stop 05/06/17 at 15:59; Status DC Vancomycin HCl (Vanco Per Pharmacy) 1 each PRN DAILY PRN MC SEE COMMENTS Last administered on 05/06/17 18:11; Start 05/04/17 at 16:45 Ceftriaxone Sodium 50 ml @ 100 mls/hr 1X ONCE IV Last administered on 16:57; Start 05/04/17 at 16:45; Stop 05/04/17 at 17:14; Status DC Vancomycin HCl 1.25 gm/Dextrose/ Sodium Chloride 250 ml @ 166.667 mls/hr 1X ONCE IV Last administered on 05/04/17 17:33; Start 05/04/17 at 16:45; Stop 05/04/17 at 18:14; Status DC Sodium Chloride 1,000 ml @ 1,000 mls/hr 1X ONCE IV Last administered on 05/04 17:36; Start 05/04/17 at 17:30; Stop 05/04/17 at 18:29; Status DC Ondansetron HCl (Zofran) 4 mg PRN Q8HRS PRN IV NAUSEA/VOMITING; Start at 17:30; Stop 05/05/17 at 17:29; Status DC Fentanyl Citrate (Fentanyl 2ml Vial) 50 mcg PRN Q2HR PRN IV PAIN Last administered on 05/05/17 10:13; Start 05/04/17 at 17:30; Stop 05/05/17 at 17 :29; Status DC Acetaminophen (Tylenol) 650 mg PRN Q4HRS PRN PO FEVER; Start 05/04/17 at 17:30 ; Stop 05/05/17 at 17:29; Status DC Gabapentin (Neurontin) 300 mg BID PO Last administered on 05/07/17 08:29; Start 05/04/17 at 21:00 Levothyroxine Sodium (Synthroid) 50 mcg DAILY06 PO Last administered on 05:42; Start 05/05/17 at 06:00 Acetaminophen (Tylenol) 650 mg PRN Q4HRS PRN PO MILD PAIN / TEMP Last administered on 05/06/17 23:23; Start 05/04/17 at 18:15 Magnesium Hydroxide (Milk Of Magnesia) 2,400 mg PRN DAILY PRN PO CONSTIPATION Last administered on 05/07/17 01:24; Start 05/04/17 at 18:15 Ondansetron HCl (Zofran) 4 mg PRN Q6HRS PRN IV NAUSEA/VOMITING Last administered on 05/07/17 08:46; Start 05/04/17 at 18:15 Atorvastatin Calcium (Lipitor) 20 mg QHS PO Last administered on 05/06/17 20: 55; Start 05/04/17 at 21:00 Aspirin (Evy Aspirin) 325 mg DAILY PO Last administered on 05/07/17 08:28; Start 05/04/17 at 19:00 Vancomycin HCl 750 mg/Sodium Chloride 250 ml @ 250 mls/hr Q24H IV ; Start at 17:30; Stop 05/05/17 at 17:30; Status DC Vancomycin HCl 1 each 1X ONCE MC Last administered on 05/06/17 17:00; Start 05/06/17 at 17:00; Stop 05/06/17 at 17:01; Status DC Info (Do NOT chart on this placeholder) 1 each 1X ONCE MC ; Start 05/05/17 at 01:45; Stop 05/05/17 at 01:46; Status UNV Influenza Virus Vaccine Quadrival (Fluarix Quad [id number] Syringe) 0.5 ml ONCE ONCE VAX IM Last administered on 05/05/17 10:18; Start 05/05/17 at 09:00; Stop 05/05/17 at 09:01; Status DC Lactobacillus Rhamnosus (Culturelle) 1 cap BID PO Last administered on 08:28; Start 05/05/17 at 21:00 Potassium Chloride (Klor-Con) 40 meq 1X ONCE PO ; Start 05/05/17 at 12:45; Stop 05/05/17 at 12:49; Status DC Metoprolol Succinate (Toprol Xl) 50 mg DAILY PO Last administered on 08:29; Start 05/05/17 at 13:00 Ceftriaxone Sodium 1 gm/ Dextrose 50 ml @ 100 mls/hr Q24H IV ; Start 05/05/17 at 16:45; Status UNV Vancomycin HCl 750 mg/Dextrose/ Sodium Chloride 250 ml @ 250 mls/hr Q24H IV Last administered on 05/05/17 18:01; Start 05/05/17 at 17:30; Stop 05/06/17 at 18:08; Status DC Ceftriaxone Sodium (Rocephin) 1 gm Q24H IVP Last administered on 05/06/17 16: 00; Start 05/05/17 at 16:00 Potassium Chloride (Klor-Con) 40 meq 1X ONCE PO Last administered on 20:56; Start 05/05/17 at 19:30; Stop 05/05/17 at 19:32; Status DC Potassium Chloride (Klor-Con) 40 meq 1X ONCE PO Last administered on 11:01; Start 05/06/17 at 11:00; Stop 05/06/17 at 11:01; Status DC Magnesium Sulfate/ Dextrose 100 ml @ 25 mls/hr 1X ONCE IV Last administered on 05/06/17 11:01; Start 05/06/17 at 11:00; Stop 05/06/17 at 14:59; Status DC Vancomycin HCl 750 mg/Sodium Chloride 250 ml @ 250 mls/hr Q12H IV Last administered on 05/07/17 05:42; Start 05/06/17 at 18:30 Active Scripts Active Toprol Xl (Metoprolol Succinate) 50 Mg Tab.er.24h 50 Mg PO DAILY Gabapentin 300 Mg Capsule 300 Mg PO BID Cefpodoxime Proxetil 200 Mg Tablet 200 Mg PO BID Reported Aspirin 81 Mg Tab.chew 1 Tab PO DAILY Levothyroxine Sodium 50 Mcg Tablet 1 Tab PO DAILY Atorvastatin Calcium 20 Mg Tablet 1 Tab PO HS Vitals/I & O Vital Sign - Last 24 Hours 05/06/17 05/06/17 05/06/17 05/06/17 11:00 15:00 19:35 19:58 Temp 97.9 98.1 97.9 97.9 98.1 97.9 Pulse 99 53 100 Resp 20 20 20 B/P (MAP) 96/64 (75) 87/47 (60) 100/63 (75) Pulse Ox 99 94 97 O2 Delivery Room Air Nasal Cannula Room Air Room Air O2 Flow Rate 2.0 05/06/17 05/07/17 05/07/17 05/07/17 23:24 02:36 07:56 08:29 Temp 97.9 98.6 97.9 98.6 Pulse 106 92 101 Resp 18 21 B/P (MAP) 139/69 (92) 106/57 (73) 112/68 Pulse Ox 95 97 O2 Delivery Room Air Room Air Room Air Intake and Output 05/06/17 05/06/17 05/07/17 15:00 23:00 07:00 Intake Total 1153 ml Output Total 100 ml 775 ml Balance 1053 ml -775 ml GLO SPEARS MD May 07, 2017 09:04
--- NOTE | 2017-05-07 09:06 | DISCH ---
DISCHARGE INSTRUCTIONS Condition on Discharge Condition on Discharge: Stable Activity After Discharge Activity Instructions for Disc: Resume previous activity Diet after Discharge Diet after Discharge: Regular Contacting the DRFreida after DC Call your doctor for: If your condition worsens Follow-Up Follow up with: dr. spears at [facility] GLO SPEARS MD May 07, 2017 09:06
--- NOTE | 2017-05-07 09:15 | PDOC ---
Provider Note Provider Note discharge summary dictated # [id number] GLO SPEARS MD May 07, 2017 09:15
[2017-05-07] MEDS: MAGNESIUM OXIDE 400 MG TABLET PO SCH ×2 (09:17→20:33)
--- NOTE | 2017-05-07 09:34 | PDOC ---
Infectious Disease Note Subjective Subjective Pt is comfortable Denies CP since last night no f/c/n/v/d/gu symptoms/cough/ had heartburn last night ROS ROS GEN: Denies fevers, chills, sweats HEENT: Denies blurred vision, sore throat CV: Denies chest pain RESP: Denies shortness of air, cough GI: Denies n/v/d NEURO: Denies confusion, dizziness MSK: Denies weakness, joint pain/swelling Vital Sign Vital Signs Vital Signs Date Time Temp Pulse Resp B/P (MAP) Pulse Ox O2 Delivery O2 Flow Rate FiO2 05/07/17 08:29 101 112/68 05/07/17 07:56 Room Air 05/07/17 07:00 97.6 20 92 97.6 05/06/17 15:00 2.0 Physical Exam PHYSICAL EXAM GENERAL: axox3 HEENT: Pupils equally round. Oral mucosa is pink and moist. Poor dentition. LUNGS: Clear. HEART: Normal S1 and S2. ABDOMEN: Nondistended. Bowel sounds active. Soft and nontender. EXTREMITIES: No gross edema or cyanosis. SKIN: Without rash. NEUROLOGICAL: Alert and oriented. Mild left-sided weakness compared to the right. No arm drift or facial droop. Moves all extremities. Labs Lab Laboratory Tests Test 05/06/17 17:00 05/07/17 01:58 05/07/17 03:45 Vancomycin Level Trough 11.1 mcg/mL (10.0-20.0) Vancomycin Last Dose Date Vancomycin Last Dose Time Stool Occult Blood Negative (NEG) White Blood Count 6.1 x10^3/uL (4.0-11.0) Red Blood Count 3.27 x10^6/uL (3.50-5.40) Hemoglobin 9.8 g/dL (12.0-15.5) Hematocrit 29.5 % (36.0-47.0) Mean Corpuscular Volume 90 fL (79-100) Mean Corpuscular Hemoglobin 30 pg (25-35) Mean Corpuscular Hemoglobin Concent 33 g/dL (31-37) Red Cell Distribution Width 19.8 % (11.5-14.5) Platelet Count 450 x10^3/uL (140-400) Neutrophils (%) (Auto) 77 % (31-73) Lymphocytes (%) (Auto) 15 % (24-48) Monocytes (%) (Auto) 8 % (0-9) Eosinophils (%) (Auto) 0 % (0-3) Basophils (%) (Auto) 0 % (0-3) Neutrophils # (Auto) 4.7 x10^3uL (1.8-7.7) Lymphocytes # (Auto) 0.9 x10^3/uL (1.0-4.8) Monocytes # (Auto) 0.5 x10^3/uL (0.0-1.1) Eosinophils # (Auto) 0.0 x10^3/uL (0.0-0.7) Basophils # (Auto) 0.0 x10^3/uL (0.0-0.2) Sodium Level 141 mmol/L (136-145) Potassium Level 3.9 mmol/L (3.5-5.1) Chloride Level 107 mmol/L (98-107) Carbon Dioxide Level 23 mmol/L (21-32) Anion Gap 11 (6-14) Blood Urea Nitrogen 6 mg/dL (7-20) Creatinine 0.7 mg/dL (0.6-1.0) Estimated GFR (Cockcroft-Gault) 104.4 Glucose Level 107 mg/dL (70-99) Calcium Level 6.8 mg/dL (8.5-10.1) Magnesium Level 2.2 mg/dL (1.8-2.4) Iron Level 39 ug/dL (50-170) Total Iron Binding Capacity 102 ug/dL (250-450) Iron Saturation 38 % (15-34) Ferritin 232 ng/mL (8-252) Vitamin B12 Level 669 pg/mL (247-911) Micro reviewed BC neg Objective Assessment MRI brain IMPRESSION: 1. No acute infarct. 2. Multiple chronic lacunar infarction superimposed on moderate chronic microangiopathic white matter change as above. Objective Assessment Lactic acidosis - improved PCN allergy - hives. 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
--- NOTE | 2017-05-07 10:10 | DS ---
DATE OF DISCHARGE: 05/07/2017 DATE OF ANTICIPATED DISMISSAL: 05/07/2017. CONSULTANTS: Include Dr. Lujan, Dr. Sheldon Smallwood, Dr. Rodríguez and Dr. Mathew. FINAL DIAGNOSES: 1. Acute onset of left-sided weakness, possibly secondary to a transient ischemic attack. 2. Cerebrovascular accident with late effects with spastic left-sided hemiparesis. 3. Multiple chronic lacunar infarcts noted on an MRI of the brain and it included within the jarrod, thalamus and right putamen. She also had some small infarcts in the bifrontal white matter. 4. Hypertension. 5. Hyperlipidemia. 6. Hypothyroidism. 7. Osteoarthritis. 8. Anemia. 9. Elevated lactic acid level, which resolved. 10. Hypokalemia. 11. Hypomagnesemia. 12. Nonsustained ventricular tachycardia due to hypomagnesemia and hypokalemia. 13. Diffuse myopathy. HOSPITAL COURSE: The patient is a 56-year-old white female with a history of a cerebrovascular accident with late effects with spastic left-sided hemiparesis in 2013 with hypertension, hyperlipidemia, hypothyroidism, osteoarthritis and neuropathic pain, admitted to [facility] at the Emergency Room on 05/04/2017, when she woke up in the morning, she had weakness in the left upper arm, left lower extremity with some difficulty walking and associated tingling. She had some transient tingling in the right arm also, which resolved. She went to the [facility] Emergency Room where a CAT scan of the head and neck angiogram was negative for any aneurysm or acute abnormality and she was subsequently admitted to the hospital. She had an elevated lactic acid level, and blood cultures were ordered and were negative, but she was started on IV vancomycin and Rocephin and seen by Infectious Disease doctor, Dr. Smallwood. In addition, she had an episode of ventricular tachycardia, which was nonsustained and magnesium level and potassium level were quite low and she received potassium and magnesium supplementation and they are both normal today. She was seen by Dr. Rodríguez in consultation. An echocardiogram and carotid Doppler did not show any significant abnormalities. The MRI showed chronic lacunar infarcts in the jarrod, thalamus, putamen and bilateral cerebral white matter. The patient received physical and occupational therapy. She received IV magnesium and oral potassium yesterday and both of which, magnesium and potassium, were normal today. Her blood pressure was under good control. She will be dismissed to [facility] later today on Tylenol 650 mg every 4 hours p.r.n.; aspirin, which was increased to 325 mg every day; atorvastatin 20 mg at bedtime; gabapentin 300 mg b.i.d.; 1 b.i.d.; levothyroxine 50 mcg every day; Zofran 4 mg p.o. every 6 hours p.r.n. and metoprolol succinate 50 mg p.o. daily. We will discontinue the IV vancomycin, which she was at 750 mg IV every 12 hours and discontinue the Rocephin 1 gram IV q. 24 hours if it is okay with the Infectious Disease doctor. The diagnosis of acute left-sided weakness, it is possible, I suspect, that she could have had a transient ischemic attack at that time. The blood cultures were negative, so IV antibiotics will be able to be discontinued today. She did have a chest x-ray done, which showed no infiltrate and she also had a urinalysis done, which showed no pyuria. She has been afebrile. GLO SPEARS MD DR: HERMES/serafin JOB#: [id number] / [id number]
[2017-05-07 11:00] VITALS: BP 111/69
--- NOTE | 2017-05-07 13:14 | PDOC ---
CARDIO Progress Notes Date and Time Date of Service 05/07/2017 Time of Evaluation 1240 Subjective Subjective: No Chest Pain, No shortness of breath, No Palpitations, Other (SOA at times with exertion. ) Vitals Vitals Vital Signs Date Time Temp Pulse Resp B/P (MAP) Pulse Ox O2 Delivery O2 Flow Rate FiO2 05/07/17 11:00 97.9 109 20 111/69 (83) 93 Room Air 97.9 05/06/17 15:00 2.0 Weight Weight [ ] Input and Output Intake and Output Intake and Output 05/07/17 07:00 Intake Total 1153 ml Output Total 875 ml Balance 278 ml Intake Oral 1053 ml IV Total 100 ml Output Urine Total 875 ml # Voids 1 # Bowel Movements 1 Laboratory Labs Laboratory Tests Test 05/06/17 17:00 05/07/17 01:58 05/07/17 03:45 Vancomycin Level Trough 11.1 mcg/mL (10.0-20.0) Vancomycin Last Dose Date Vancomycin Last Dose Time Stool Occult Blood Negative (NEG) White Blood Count 6.1 x10^3/uL (4.0-11.0) Red Blood Count 3.27 x10^6/uL (3.50-5.40) Hemoglobin 9.8 g/dL (12.0-15.5) Hematocrit 29.5 % (36.0-47.0) Mean Corpuscular Volume 90 fL (79-100) Mean Corpuscular Hemoglobin 30 pg (25-35) Mean Corpuscular Hemoglobin Concent 33 g/dL (31-37) Red Cell Distribution Width 19.8 % (11.5-14.5) Platelet Count 450 x10^3/uL (140-400) Neutrophils (%) (Auto) 77 % (31-73) Lymphocytes (%) (Auto) 15 % (24-48) Monocytes (%) (Auto) 8 % (0-9) Eosinophils (%) (Auto) 0 % (0-3) Basophils (%) (Auto) 0 % (0-3) Neutrophils # (Auto) 4.7 x10^3uL (1.8-7.7) Lymphocytes # (Auto) 0.9 x10^3/uL (1.0-4.8) Monocytes # (Auto) 0.5 x10^3/uL (0.0-1.1) Eosinophils # (Auto) 0.0 x10^3/uL (0.0-0.7) Basophils # (Auto) 0.0 x10^3/uL (0.0-0.2) Sodium Level 141 mmol/L (136-145) Potassium Level 3.9 mmol/L (3.5-5.1) Chloride Level 107 mmol/L (98-107) Carbon Dioxide Level 23 mmol/L (21-32) Anion Gap 11 (6-14) Blood Urea Nitrogen 6 mg/dL (7-20) Creatinine 0.7 mg/dL (0.6-1.0) Estimated GFR (Cockcroft-Gault) 104.4 Glucose Level 107 mg/dL (70-99) Calcium Level 6.8 mg/dL (8.5-10.1) Magnesium Level 2.2 mg/dL (1.8-2.4) Iron Level 39 ug/dL (50-170) Total Iron Binding Capacity 102 ug/dL (250-450) Iron Saturation 38 % (15-34) Ferritin 232 ng/mL (8-252) Vitamin B12 Level 669 pg/mL (247-911) Microbiology Micro Microbiology 05/04/17 Blood Culture - Preliminary, Resulted NO GROWTH AFTER 2 DAYS Physical Exam HEENT: Neck Supple W Full Motion Chest: Symmetric LUNGS: Other (basilar crackles) Heart: S1S2, RRR (sinus tach) Abdomen: Soft N/T Extremities: No Calf Tenderness Neurology: alert, oriented, follow commands Assessment Assessment 1. NSVT: no further recurrence after Mg and K normalized. Maintain sinus tach 110 at rest. TTE with normal EF and wall motion 2. CVA with left side hemiparesis: no acute changes per neurology 3. HTN: controlled 4. HLP 5. Hypothyroidism: TSH 6 6. Dyspnea on exertion with episodes of low BP. 7. Fe def anemia Recommendations 1. Continue with secondary prevention 2. Continue with BB 3. Check ANDREWS ANDRES APRN May 07, 2017 13:14
[2017-05-07] MEDS ORDERED: IOHEXOL 300 MG/ML 100ML VIAL. IV ONE (14:30)
[2017-05-07] MEDS ORDERED: CONTRAST GIVEN MC PRN (14:45)
[2017-05-07 15:00] VITALS: BP 121/69
--- NOTE | 2017-05-07 15:21 | RAD ---
CTA of the chest. 05/07/2017 Indication: Shortness of breath, chest pain Comparison study: [None] Technique: Multidetector CT imaging of the chest was performed following the administration of intravenous contrast. Multiple reconstructions including 3-D maximum intensity projection reconstructions were created on an independent workstation and reviewed. Findings: There is no evidence of filling defect within central pulmonary arteries or other evidence of acute pulmonary embolism. Heart size is within normal limits. No significant pericardial effusion is appreciated. Mild ectasia of the ascending thoracic aorta measuring up to 3.5 cm is noted. Visualized arch vessels are grossly unremarkable. Scattered small mediastinal lymph nodes are noted. No pathologically enlarged mediastinal adenopathy is appreciated. Tiny subcarinal calcified lymph nodes appear to be present. There is no pneumothorax or pleural effusion. No acute appearing infiltrates are identified. Calcified granulomas noted in the right lung base. Limited visualization of the upper abdomen demonstrates calcifications in the expected region of the gallbladder lumen extending into what may be the cystic duct. Review of CT scan of the abdomen and pelvis from November 08, 2015 demonstrates similar findings however the amount of calcification appears to have increased in the interim. Similar to studies, recommend consideration of follow-up MRCP or ERCP further characterization as clinically indicated. Impression: 1. No evidence of acute pulmonary embolism or other acute cardiopulmonary process. 2. Calcification the expected region of the gallbladder extending into the cystic duct. Similar to studies, recommend consideration of follow-up MRCP or ERCP further characterization as clinically indicated. PQRS Compliance Statement: One or more of the following individualized dose reduction techniques were utilized for this examination: 1. Automated exposure control 2. Adjustment of the mA and/or kV according to patient size 3. Use of iterative reconstruction technique
--- NOTE | 2017-05-07 15:40 | PDOC ---
PROGRESS NOTES Assessment Assessment IMPRESSION: Left side numbness and tingling. Weakness. 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 Iron deficiency. Obesity. No evidence of acute CVa this time. RECOMMENDATIONS/PLAN: Continue ASA 325 mg daily. Continue Statin HS. Treat medical diseases. FU with PCP.: Past Medical History Cardiovascular: HTN, Hyperlipidemia CENTRAL NERVOUS SYSTEM: CVA Musculoskeletal: Osteoarthritis Endocrine: Hypothyroidism Family History No Significant Social History ALCOHOL: none Lives: with Family ALLERGY: Reviewed. MEDICATIONS: Refer to MAR REVIEW OF SYSTEMS: Constitutional: No malnutrition, weight loss, cachexia. Head: No recent traumatic brain or head injury. Skin: No edema, or rash. Ear: No infection. Eyes: No vision loss, or diplopia. Nose: No bleeding or purulent discharges. Hearing: No hearing decrease. H Neck: No injury. Breast: No history of cancer, masses, or discharges. Cardiac: TN, HLD Pulmonary: NO COPD. GI: No GI Ulcer, GI bleeding Urinary/genital: UTI. Endocrine: Obesity. Skeletomuscular: No muscular atrophy, deformity. Neurological: see HP. Psychiatric: Denies drug use/abuse. Otherwise, not [id number] review of systems. PHYSICAL EXAMINATION: General appearance in no acute distress. HEENT: Normocephalic and nontraumatic. Eyes, nose, ears, and throat are unremarkable. Hearing decrease. Neck is supple. No lymphadenopathy. No bruits are heard over the carotid artery. No Crepitus. Cardiovascular: S1, S2, regular rate and rhythm. Pulmonary: Clear to auscultation bilaterally. Abdomen: Bowel sounds are positive. Abdomen is soft, nontender, and nondistended. Extremities: No rash, lesions, or edema. No restriction of range of motion NEUROLOGICAL EXAMINATION: Alert. Oriented to time, place and person. PERRL. EOMI. CN: no focal findings. Muscle tone: within normal. Muscle strength: 5- left UE, the rest 5 DTR: 2 Plantar reflex: Flexor l response bilaterally Gait: not examined in bed. Sensory exam: no abnormal findings. No cerebellar signs elicited. F-T-N test fine. Objective Objective Vital Signs Date Time Temp Pulse Resp B/P (MAP) Pulse Ox O2 Delivery O2 Flow Rate FiO2 05/07/17 11:00 97.9 109 20 111/69 (83) 93 Room Air 97.9 05/06/17 15:00 2.0 Intake and Output 05/07/17 07:00 Intake Total 1153 ml Output Total 875 ml Balance 278 ml Intake Oral 1053 ml IV Total 100 ml Output Urine Total 875 ml # Voids 1 # Bowel Movements 1 Vitals Signs Vitals VS - Last 72 Hours, by Label Date Time Temp Pulse Resp B/P (MAP) Pulse Ox O2 Delivery O2 Flow Rate FiO2 05/07/17 11:00 97.9 109 20 111/69 (83) 93 Room Air 97.9 05/07/17 08:29 101 112/68 05/07/17 07:56 Room Air 05/07/17 07:00 97.6 93 20 112/68 (83) 92 Room Air 97.6 05/07/17 02:36 98.6 92 21 106/57 (73) 97 Room Air 98.6 05/06/17 23:24 97.9 106 18 139/69 (92) 95 Room Air 97.9 05/06/17 19:58 Room Air 05/06/17 19:35 97.9 100 20 100/63 (75) 97 Room Air 97.9 05/06/17 15:00 98.1 53 20 87/47 (60) 94 Nasal Cannula 2.0 98.1 05/06/17 11:00 97.9 99 20 96/64 (75) 99 Room Air 97.9 05/06/17 08:31 98 105/65 05/06/17 08:18 Room Air 05/06/17 07:25 98.2 98 18 105/65 (78) 99 Room Air 98.2 Laboratory Laboratory Laboratory Tests Test 05/06/17 17:00 05/07/17 01:58 05/07/17 03:45 05/07/17 13:37 Vancomycin Level Trough 11.1 mcg/mL (10.0-20.0) Vancomycin Last Dose Date Vancomycin Last Dose Time Stool Occult Blood Negative (NEG) White Blood Count 6.1 x10^3/uL (4.0-11.0) Red Blood Count 3.27 x10^6/uL (3.50-5.40) Hemoglobin 9.8 g/dL (12.0-15.5) Hematocrit 29.5 % (36.0-47.0) Mean Corpuscular Volume 90 fL (79-100) Mean Corpuscular Hemoglobin 30 pg (25-35) Mean Corpuscular Hemoglobin Concent 33 g/dL (31-37) Red Cell Distribution Width 19.8 % (11.5-14.5) Platelet Count 450 x10^3/uL (140-400) Neutrophils (%) (Auto) 77 % (31-73) Lymphocytes (%) (Auto) 15 % (24-48) Monocytes (%) (Auto) 8 % (0-9) Eosinophils (%) (Auto) 0 % (0-3) Basophils (%) (Auto) 0 % (0-3) Neutrophils # (Auto) 4.7 x10^3uL (1.8-7.7) Lymphocytes # (Auto) 0.9 x10^3/uL (1.0-4.8) Monocytes # (Auto) 0.5 x10^3/uL (0.0-1.1) Eosinophils # (Auto) 0.0 x10^3/uL (0.0-0.7) Basophils # (Auto) 0.0 x10^3/uL (0.0-0.2) Sodium Level 141 mmol/L (136-145) Potassium Level 3.9 mmol/L (3.5-5.1) Chloride Level 107 mmol/L (98-107) Carbon Dioxide Level 23 mmol/L (21-32) Anion Gap 11 (6-14) Blood Urea Nitrogen 6 mg/dL (7-20) Creatinine 0.7 mg/dL (0.6-1.0) Estimated GFR (Cockcroft-Gault) 104.4 Glucose Level 107 mg/dL (70-99) Calcium Level 6.8 mg/dL (8.5-10.1) Magnesium Level 2.2 mg/dL (1.8-2.4) Iron Level 39 ug/dL (50-170) Total Iron Binding Capacity 102 ug/dL (250-450) Iron Saturation 38 % (15-34) Ferritin 232 ng/mL (8-252) Vitamin B12 Level 669 pg/mL (247-911) D-Dimer (Vanessa) 1.54 ug/mlFEU (0.00-0.50) Microbiology 05/04/17 Blood Culture - Preliminary, Resulted NO GROWTH AFTER 3 DAYS Medication Medications Current Medications Info (Do NOT chart on this entry -- for MONITORING) 1 each PRN DAILY PRN MC SEE COMMENTS; Start 05/07/17 at 14:45; Stop 05/09/17 at 14:44 Iohexol (Omnipaque 300 Mg/ml) 75 ml 1X ONCE IV Last administered on 14:43; Start 05/07/17 at 14:30; Stop 05/07/17 at 14:31; Status DC Magnesium Oxide (Magnesium Oxide) 400 mg BID PO Last administered on 09:17; Start 05/07/17 at 09:30 Ondansetron HCl (Zofran Odt) 4 mg PRN Q6HRS PRN PO NAUSEA/VOMITING Last administered on 05/07/17 15:02; Start 05/07/17 at 09:00 Vancomycin HCl 1 each 1X ONCE MC Last administered on 05/06/17 17:00; Start 05/06/17 at 17:00; Stop 05/06/17 at 17:01; Status DC Vancomycin HCl 750 mg/Sodium Chloride 250 ml @ 250 mls/hr Q12H IV Last administered on 05/07/17 05:42; Start 05/06/17 at 18:30; Stop 05/07/17 at 10 :07; Status DC Comment Review of Relevant I have reviewed the following items maryam (where applicable) has been applied. JOHNNY ROSALES MD May 07, 2017 15:40
[2017-05-07] MEDS ORDERED: MAG HYDROX/ALUMINUM HYD/SIMETH 30 ML ORAL.SUSP PO PRN (16:45)
--- NOTE | 2017-05-07 16:54 | PDOC2 ---
GI CONSULT Reason For Consult: Abd pain HPI: HPI: 56 y/o female admitted 05/04/17 w/ weakness. Had discharge plans but GI consulted this afternoon re: abd pain. RN reports pt c/o epigastric pain throughout the day, possibly after eating, associated w/ some nausea. The patient tells me she has had central chest pain x 2 weeks. Cannot characterize pain further. Has felt "sick to her tummy," pain keeps her up at night, does not seem to be made worse by eating, occasionally radiates around under right breast to central back. Pain medication helps. Pain makes it hard to breathe sometimes. Vomited a few days ago. Has occasional reflux, untreated. No dysphagia/odynophagia. No diarrhea or constipation, thinks had a couple stools today. At first reports weight loss, then thinks maybe has gained a few pounds. No hematemesis, hematochezia, melena. No bloating or early satiety. Not sure about previous EGD. Had a colonoscopy a long time ago. S/p colon resection for abscess. No liver or pancreas history. Previous imaging has noted radiopacities along the margin of the gallbladder, possibly representing a cluster of tiny calculi in the cystic duct. Also has ventral hernia which contained nonobstructed small bowel loops on CT in 2016. On Zenpep, occasional NSAIDs. PMH: PMH: CVA w/ left-sided spasticity, HTN, hypothyroidism, HLD, OA, neuropathy, colon resection (for abscess), , appendectomy, tonsillectomy, tubal ligation FH: Family History: Other (aunt had cholecystectomy) Social History: Smoke: Quit ALCOHOL: none Drugs: None ROS: GEN: Denies fevers, chills, sweats HEENT: Denies blurred vision, sore throat CV: Denies chest pain RESP: "hard to breathe" GI: Per HPI : Denies hematuria, dysuria ENDO: Denies weight changes NEURO: Denies confusion, dizziness MSK: "weakness" SKIN: Denies jaundice, pruritus Vitals: Vitals: Vital Signs Date Time Temp Pulse Resp B/P (MAP) Pulse Ox O2 Delivery O2 Flow Rate FiO2 05/07/17 11:00 97.9 109 20 111/69 (83) 93 Room Air 97.9 05/06/17 15:00 2.0 Labs: Labs: Laboratory Tests Test 05/06/17 17:00 05/07/17 01:58 05/07/17 03:45 05/07/17 13:37 Vancomycin Level Trough 11.1 mcg/mL (10.0-20.0) Vancomycin Last Dose Date Vancomycin Last Dose Time Stool Occult Blood Negative (NEG) White Blood Count 6.1 x10^3/uL (4.0-11.0) Red Blood Count 3.27 x10^6/uL (3.50-5.40) Hemoglobin 9.8 g/dL (12.0-15.5) Hematocrit 29.5 % (36.0-47.0) Mean Corpuscular Volume 90 fL (79-100) Mean Corpuscular Hemoglobin 30 pg (25-35) Mean Corpuscular Hemoglobin Concent 33 g/dL (31-37) Red Cell Distribution Width 19.8 % (11.5-14.5) Platelet Count 450 x10^3/uL (140-400) Neutrophils (%) (Auto) 77 % (31-73) Lymphocytes (%) (Auto) 15 % (24-48) Monocytes (%) (Auto) 8 % (0-9) Eosinophils (%) (Auto) 0 % (0-3) Basophils (%) (Auto) 0 % (0-3) Neutrophils # (Auto) 4.7 x10^3uL (1.8-7.7) Lymphocytes # (Auto) 0.9 x10^3/uL (1.0-4.8) Monocytes # (Auto) 0.5 x10^3/uL (0.0-1.1) Eosinophils # (Auto) 0.0 x10^3/uL (0.0-0.7) Basophils # (Auto) 0.0 x10^3/uL (0.0-0.2) Sodium Level 141 mmol/L (136-145) Potassium Level 3.9 mmol/L (3.5-5.1) Chloride Level 107 mmol/L (98-107) Carbon Dioxide Level 23 mmol/L (21-32) Anion Gap 11 (6-14) Blood Urea Nitrogen 6 mg/dL (7-20) Creatinine 0.7 mg/dL (0.6-1.0) Estimated GFR (Cockcroft-Gault) 104.4 Glucose Level 107 mg/dL (70-99) Calcium Level 6.8 mg/dL (8.5-10.1) Magnesium Level 2.2 mg/dL (1.8-2.4) Iron Level 39 ug/dL (50-170) Total Iron Binding Capacity 102 ug/dL (250-450) Iron Saturation 38 % (15-34) Ferritin 232 ng/mL (8-252) Vitamin B12 Level 669 pg/mL (247-911) D-Dimer (Vanessa) 1.54 ug/mlFEU (0.00-0.50) Allergies: Coded Allergies: Penicillins (Verified Allergy, Intermediate, 05/05/17) Tolerates meropenem, CEFTRIAXONE apple (Verified Allergy, Intermediate, 11/06/15) orange juice (Verified Allergy, Intermediate, 11/15/14) strawberry (Verified Allergy, Intermediate, 11/15/14) Medications: Current Medications Medications (Trade) Dose Ordered Sig/Demond Route PRN Reason Start Time Stop Time Status Last Admin Dose Admin Vancomycin HCl 1 each 1X ONCE 05/06/17 17:00 05/06/17 17:01 DC 05/06/17 17:00 Vancomycin HCl 750 mg/Sodium Chloride 250 ml @ 250 mls/hr Q12H IV 05/06/17 18:30 05/07/17 10:07 DC 05/07/17 05:42 Ondansetron HCl (Zofran Odt) 4 mg PRN Q6HRS PRN PO NAUSEA/VOMITING 05/07/17 09:00 05/07/17 15:02 Magnesium Oxide (Magnesium Oxide) 400 mg BID PO 05/07/17 09:30 05/07/17 09:17 Iohexol (Omnipaque 300 Mg/ml) 75 ml 1X ONCE IV 05/07/17 14:30 05/07/17 14:31 DC 05/07/17 14:43 Imaging: Imaging: Chest CTA Impression: 1. No evidence of acute pulmonary embolism or other acute cardiopulmonary process. 2. Calcification the expected region of the gallbladder extending into the cystic duct. Similar to studies, recommend consideration of follow-up MRCP or ERCP further characterization as clinically indicated. PE: GEN: NAD HEENT: Atraumatic, PERRL LUNGS: CTAB anteriorly HEART: RRR, sternal tenderness ABD: NABS, S/NT, ventral hernia EXTREMITY: left-sided spastic hemiparesis SKIN: No rashes, no jaundice NEURO/PSYCH: A & O 3 A/P: A/P: Chest pain -reproducible w/ palpation -bothersome x 2 weeks, worse at night, sometimes radiates to back -on CT: calcification the expected region of the gallbladder extending into the cystic duct ?dyspepsia S/p colon resection for abscess Ventral hernia CRC screen -unclear timing of last colonoscopy H/o CVA, weakness ACD -- Will review w/ Dr. Miller. 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
[2017-05-07] MEDS: LIPASE/PROTEAS/AMYLASE 5/17/27 CAPSULE.DR. PO SCH (17:00)
[2017-05-07 19:00] VITALS: BP 107/71
[2017-05-07] MEDS: ATORVASTATIN CALCIUM 20 MG TABLET PO SCH (20:34)
[2017-05-07] MEDS: FAMOTIDINE 20 MG TABLET. PO SCH (20:34)
[2017-05-07 23:15] VITALS: BP 108/71
[2017-05-08 03:00] VITALS: BP 120/78
[2017-05-08 04:36] LABS: BASO % 0 % (0-3); EOS % 0 % (0-3); HEMOGLOBIN 10.1 g/dL (12.0-15.5); LYMPH # 1.1 x10^3/uL (1.0-4.8); LYMPH % 18 % (24-48); MEAN CORPUSCULAR HEMOGLOBIN 30 pg (25-35); MEAN CORPUSCULAR HGB CONC 34 g/dL (31-37); MEAN CORPUSCULAR VOLUME 91 fL (79-100); MONO % 9 % (0-9); NEUT % 73 % (31-73); PLATELET COUNT 418 x10^3/uL (140-400); RED BLOOD COUNT 3.31 x10^6/uL (3.50-5.40); WHITE BLOOD COUNT 5.9 x10^3/uL (4.0-11.0)
[2017-05-08 04:53] LABS: ALBUMIN/GLOBULIN RATIO 0.6 (1.0-1.7); CALCIUM 7.6 mg/dL (8.5-10.1); CREATININE 0.6 mg/dL (0.6-1.0); GFR 124.7; POTASSIUM 3.8 mmol/L (3.5-5.1); TOTAL BILIRUBIN 0.3 mg/dL (0.2-1.0); TOTAL PROTEIN 5.3 g/dL (6.4-8.2)
[2017-05-08] MEDS: LEVOTHYROXINE 50 MCG TABLET PO SCH (06:38)
[2017-05-08 07:43] VITALS: BP 121/70
--- NOTE | 2017-05-08 08:32 | RAD ---
Ultrasound abdomen Indication: Epigastric pain. Technique: Grayscale, color Doppler and spectral waveform ultrasound images of the abdomen obtained. Comparison: Previous study from 11/04/2015 Findings: Visualized pancreas is within normal limits. IVC is patent. The proximal and distal aortic diameter measures 2.5 cm and 1.5 cm respectively without evidence of aneurysmal dilation. The mid segment of the aorta is non-visualized due to overlying bowel gas. The main portal vein is patent with hepatopedal flow. The liver measures 15 cm in craniocaudal dimension and is normal in echotexture without focal lesion. Sludge is seen in the gallbladder. Focal echogenicity seen adjacent to the cystic duct which corresponds to calcifications seen in the same region on CT abdomen from 11/04/2015. No pericholecystic fluid or gallbladder wall thickening. CBD measures 4 mm and is within normal limits. The right kidney measures 9 cm without hydronephrosis. The left kidney measures 8.2 cm without evidence of hydronephrosis. Spleen is only visualized but measures 8 cm and is normal in size. Impression: Sludge in the gallbladder without sonographic evidence of acute cholecystitis.
[2017-05-08] MEDS ORDERED: GADOBUTROL 7.5 MMOL/7.5 ML VIAL IV ONE (09:00)
[2017-05-08] MEDS: LACTOBACILLUS RHAMNOSUS GG 1 CAPSULE. PO SCH (09:23)
[2017-05-08] MEDS: FAMOTIDINE 20 MG TABLET. PO SCH (09:23)
[2017-05-08] MEDS: GABAPENTIN 300 MG CAPSULE. PO SCH (09:23)
[2017-05-08] MEDS: METOPROLOL SUCC 24HR ER 50 MG TAB.ER.24H. PO SCH (09:23)
[2017-05-08] MEDS: MAGNESIUM OXIDE 400 MG TABLET PO SCH (09:23)
[2017-05-08] MEDS: ASPIRIN 325 MG TABLET PO SCH (09:23)
[2017-05-08] MEDS: LIPASE/PROTEAS/AMYLASE 5/17/27 CAPSULE.DR. PO SCH ×2 (09:24→12:39)
--- NOTE | 2017-05-08 09:44 | PDOC ---
PROGRESS NOTES Subjective Subjective has chest wall pain reproduced. eating. no nausea or abdominal pain. abdominal ultrasound shows GB sludge and no cholecystitis. lab reviewed MRCP pending Objective Objective Vital Signs Date Time Temp Pulse Resp B/P (MAP) Pulse Ox O2 Delivery O2 Flow Rate FiO2 05/08/17 09:23 99 121/70 05/08/17 08:00 Room Air 2.0 05/08/17 07:43 97.8 18 97 97.8 Intake and Output 05/08/17 06:59 Intake Total 700 ml Balance 700 ml Intake Oral 700 ml # Voids 3 # Bowel Movements 1 Physical Exam Abdomen: Soft, No tenderness Heart: Regular rate, Normal S1, Normal S2 Extremities: No edema General: Alert HEENT: Atraumatic Lungs: Clear to auscultation MUSCULOSKELETAL: Other (chest wall pain reproduced with palpation over sternum) Neuro: Normal speech Psych/Mental Status: Mental status NL Skin: No rashes Assessment Assessment Problems Acute onset left-sided weakness.05/04/17 resolved. no acute CVA on MRI brain. has multiple old lacunar infarcts 2. 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 3. Hypertension. 4. Hyperlipidemia. 5. Hypothyroidism. 6. Osteoarthritis. 7. Anemia. 8. Elevated lactic acid level resolved hypokalemia hypomagnesemia non sustained ventricular tachycardia due to hypomagnesemia and hypokalemia disuse myopathy chest wall pain Medical Problems: (1) Lactic acidosis Status: Acute (2) Paresthesias Status: Acute (3) Tachycardia Status: Acute Plan Plan of Care await mrcp results transfer to [facility] today Comment Review of Relevant I have reviewed the following items maryam (where applicable) has been applied. Labs Laboratory Tests Test 05/06/17 17:00 05/07/17 01:58 05/07/17 03:45 05/07/17 13:37 Vancomycin Level Trough 11.1 mcg/mL (10.0-20.0) Vancomycin Last Dose Date Vancomycin Last Dose Time Stool Occult Blood Negative (NEG) White Blood Count 6.1 x10^3/uL (4.0-11.0) Red Blood Count 3.27 x10^6/uL (3.50-5.40) Hemoglobin 9.8 g/dL (12.0-15.5) Hematocrit 29.5 % (36.0-47.0) Mean Corpuscular Volume 90 fL (79-100) Mean Corpuscular Hemoglobin 30 pg (25-35) Mean Corpuscular Hemoglobin Concent 33 g/dL (31-37) Red Cell Distribution Width 19.8 % (11.5-14.5) Platelet Count 450 x10^3/uL (140-400) Neutrophils (%) (Auto) 77 % (31-73) Lymphocytes (%) (Auto) 15 % (24-48) Monocytes (%) (Auto) 8 % (0-9) Eosinophils (%) (Auto) 0 % (0-3) Basophils (%) (Auto) 0 % (0-3) Neutrophils # (Auto) 4.7 x10^3uL (1.8-7.7) Lymphocytes # (Auto) 0.9 x10^3/uL (1.0-4.8) Monocytes # (Auto) 0.5 x10^3/uL (0.0-1.1) Eosinophils # (Auto) 0.0 x10^3/uL (0.0-0.7) Basophils # (Auto) 0.0 x10^3/uL (0.0-0.2) Sodium Level 141 mmol/L (136-145) Potassium Level 3.9 mmol/L (3.5-5.1) Chloride Level 107 mmol/L (98-107) Carbon Dioxide Level 23 mmol/L (21-32) Anion Gap 11 (6-14) Blood Urea Nitrogen 6 mg/dL (7-20) Creatinine 0.7 mg/dL (0.6-1.0) Estimated GFR (Cockcroft-Gault) 104.4 Glucose Level 107 mg/dL (70-99) Calcium Level 6.8 mg/dL (8.5-10.1) Magnesium Level 2.2 mg/dL (1.8-2.4) Iron Level 39 ug/dL (50-170) Total Iron Binding Capacity 102 ug/dL (250-450) Iron Saturation 38 % (15-34) Ferritin 232 ng/mL (8-252) Vitamin B12 Level 669 pg/mL (247-911) D-Dimer (Vanessa) 1.54 ug/mlFEU (0.00-0.50) Test 05/08/17 03:40 White Blood Count 5.9 x10^3/uL (4.0-11.0) Red Blood Count 3.31 x10^6/uL (3.50-5.40) Hemoglobin 10.1 g/dL (12.0-15.5) Hematocrit 30.0 % (36.0-47.0) Mean Corpuscular Volume 91 fL (79-100) Mean Corpuscular Hemoglobin 30 pg (25-35) Mean Corpuscular Hemoglobin Concent 34 g/dL (31-37) Red Cell Distribution Width 20.0 % (11.5-14.5) Platelet Count 418 x10^3/uL (140-400) Neutrophils (%) (Auto) 73 % (31-73) Lymphocytes (%) (Auto) 18 % (24-48) Monocytes (%) (Auto) 9 % (0-9) Eosinophils (%) (Auto) 0 % (0-3) Basophils (%) (Auto) 0 % (0-3) Neutrophils # (Auto) 4.3 x10^3uL (1.8-7.7) Lymphocytes # (Auto) 1.1 x10^3/uL (1.0-4.8) Monocytes # (Auto) 0.5 x10^3/uL (0.0-1.1) Eosinophils # (Auto) 0.0 x10^3/uL (0.0-0.7) Basophils # (Auto) 0.0 x10^3/uL (0.0-0.2) Sodium Level 142 mmol/L (136-145) Potassium Level 3.8 mmol/L (3.5-5.1) Chloride Level 108 mmol/L (98-107) Carbon Dioxide Level 26 mmol/L (21-32) Anion Gap 8 (6-14) Blood Urea Nitrogen 4 mg/dL (7-20) Creatinine 0.6 mg/dL (0.6-1.0) Estimated GFR (Cockcroft-Gault) 124.7 BUN/Creatinine Ratio 7 (6-20) Glucose Level 83 mg/dL (70-99) Calcium Level 7.6 mg/dL (8.5-10.1) Total Bilirubin 0.3 mg/dL (0.2-1.0) Aspartate Amino Transf (AST/SGOT) 28 U/L (15-37) Alanine Aminotransferase (ALT/SGPT) 24 U/L (14-59) Alkaline Phosphatase 166 U/L (46-116) Total Protein 5.3 g/dL (6.4-8.2) Albumin 2.0 g/dL (3.4-5.0) Albumin/Globulin Ratio 0.6 (1.0-1.7) Amylase Level 66 U/L (25-115) Lipase 205 U/L (73-393) Laboratory Tests Test 05/07/17 13:37 05/08/17 03:40 D-Dimer (Vanessa) 1.54 ug/mlFEU (0.00-0.50) White Blood Count 5.9 x10^3/uL (4.0-11.0) Red Blood Count 3.31 x10^6/uL (3.50-5.40) Hemoglobin 10.1 g/dL (12.0-15.5) Hematocrit 30.0 % (36.0-47.0) Mean Corpuscular Volume 91 fL (79-100) Mean Corpuscular Hemoglobin 30 pg (25-35) Mean Corpuscular Hemoglobin Concent 34 g/dL (31-37) Red Cell Distribution Width 20.0 % (11.5-14.5) Platelet Count 418 x10^3/uL (140-400) Neutrophils (%) (Auto) 73 % (31-73) Lymphocytes (%) (Auto) 18 % (24-48) Monocytes (%) (Auto) 9 % (0-9) Eosinophils (%) (Auto) 0 % (0-3) Basophils (%) (Auto) 0 % (0-3) Neutrophils # (Auto) 4.3 x10^3uL (1.8-7.7) Lymphocytes # (Auto) 1.1 x10^3/uL (1.0-4.8) Monocytes # (Auto) 0.5 x10^3/uL (0.0-1.1) Eosinophils # (Auto) 0.0 x10^3/uL (0.0-0.7) Basophils # (Auto) 0.0 x10^3/uL (0.0-0.2) Sodium Level 142 mmol/L (136-145) Potassium Level 3.8 mmol/L (3.5-5.1) Chloride Level 108 mmol/L (98-107) Carbon Dioxide Level 26 mmol/L (21-32) Anion Gap 8 (6-14) Blood Urea Nitrogen 4 mg/dL (7-20) Creatinine 0.6 mg/dL (0.6-1.0) Estimated GFR (Cockcroft-Gault) 124.7 BUN/Creatinine Ratio 7 (6-20) Glucose Level 83 mg/dL (70-99) Calcium Level 7.6 mg/dL (8.5-10.1) Total Bilirubin 0.3 mg/dL (0.2-1.0) Aspartate Amino Transf (AST/SGOT) 28 U/L (15-37) Alanine Aminotransferase (ALT/SGPT) 24 U/L (14-59) Alkaline Phosphatase 166 U/L (46-116) Total Protein 5.3 g/dL (6.4-8.2) Albumin 2.0 g/dL (3.4-5.0) Albumin/Globulin Ratio 0.6 (1.0-1.7) Amylase Level 66 U/L (25-115) Lipase 205 U/L (73-393) Microbiology 05/04/17 Blood Culture - Preliminary, Resulted NO GROWTH AFTER 3 DAYS Medications Current Medications Sodium Chloride 1,000 ml @ 1,000 mls/hr 1X ONCE IV Last administered on 05/04 16:12; Start 05/04/17 at 15:30; Stop 05/04/17 at 16:29; Status DC Iohexol (Omnipaque 300 Mg/ml) 75 ml 1X ONCE IV Last administered on 16:36; Start 05/04/17 at 16:00; Stop 05/04/17 at 16:01; Status DC Info (Do NOT chart on this entry -- for MONITORING) 1 each PRN DAILY PRN MC SEE COMMENTS; Start 05/04/17 at 16:00; Stop 05/06/17 at 15:59; Status DC Vancomycin HCl (Vanco Per Pharmacy) 1 each PRN DAILY PRN MC SEE COMMENTS Last administered on 05/06/17 18:11; Start 05/04/17 at 16:45; Stop 05/07/17 at 10 :14; Status DC Ceftriaxone Sodium 50 ml @ 100 mls/hr 1X ONCE IV Last administered on 16:57; Start 05/04/17 at 16:45; Stop 05/04/17 at 17:14; Status DC Vancomycin HCl 1.25 gm/Dextrose/ Sodium Chloride 250 ml @ 166.667 mls/hr 1X ONCE IV Last administered on 05/04/17 17:33; Start 05/04/17 at 16:45; Stop 05/04/17 at 18:14; Status DC Sodium Chloride 1,000 ml @ 1,000 mls/hr 1X ONCE IV Last administered on 05/04 17:36; Start 05/04/17 at 17:30; Stop 05/04/17 at 18:29; Status DC Ondansetron HCl (Zofran) 4 mg PRN Q8HRS PRN IV NAUSEA/VOMITING; Start at 17:30; Stop 05/05/17 at 17:29; Status DC Fentanyl Citrate (Fentanyl 2ml Vial) 50 mcg PRN Q2HR PRN IV PAIN Last administered on 05/05/17 10:13; Start 05/04/17 at 17:30; Stop 05/05/17 at 17 :29; Status DC Acetaminophen (Tylenol) 650 mg PRN Q4HRS PRN PO FEVER; Start 05/04/17 at 17:30 ; Stop 05/05/17 at 17:29; Status DC Gabapentin (Neurontin) 300 mg BID PO Last administered on 05/08/17 09:23; Start 05/04/17 at 21:00 Levothyroxine Sodium (Synthroid) 50 mcg DAILY06 PO Last administered on 06:38; Start 05/05/17 at 06:00 Acetaminophen (Tylenol) 650 mg PRN Q4HRS PRN PO MILD PAIN / TEMP Last administered on 05/06/17 23:23; Start 05/04/17 at 18:15 Magnesium Hydroxide (Milk Of Magnesia) 2,400 mg PRN DAILY PRN PO CONSTIPATION Last administered on 05/07/17 01:24; Start 05/04/17 at 18:15 Ondansetron HCl (Zofran) 4 mg PRN Q6HRS PRN IV NAUSEA/VOMITING Last administered on 05/07/17 08:46; Start 05/04/17 at 18:15 Atorvastatin Calcium (Lipitor) 20 mg QHS PO Last administered on 05/07/17 20: 34; Start 05/04/17 at 21:00 Aspirin (Evy Aspirin) 325 mg DAILY PO Last administered on 05/08/17 09:23; Start 05/04/17 at 19:00 Vancomycin HCl 750 mg/Sodium Chloride 250 ml @ 250 mls/hr Q24H IV ; Start at 17:30; Stop 05/05/17 at 17:30; Status DC Vancomycin HCl 1 each 1X ONCE MC Last administered on 05/06/17 17:00; Start 05/06/17 at 17:00; Stop 05/06/17 at 17:01; Status DC Info (Do NOT chart on this placeholder) 1 each 1X ONCE MC ; Start 05/05/17 at 01:45; Stop 05/05/17 at 01:46; Status UNV Influenza Virus Vaccine Quadrival (Fluarix Quad [id number] Syringe) 0.5 ml ONCE ONCE VAX IM Last administered on 05/05/17 10:18; Start 05/05/17 at 09:00; Stop 05/05/17 at 09:01; Status DC Lactobacillus Rhamnosus (Culturelle) 1 cap BID PO Last administered on 09:23; Start 05/05/17 at 21:00 Potassium Chloride (Klor-Con) 40 meq 1X ONCE PO ; Start 05/05/17 at 12:45; Stop 05/05/17 at 12:49; Status DC Metoprolol Succinate (Toprol Xl) 50 mg DAILY PO Last administered on 09:23; Start 05/05/17 at 13:00 Ceftriaxone Sodium 1 gm/ Dextrose 50 ml @ 100 mls/hr Q24H IV ; Start 05/05/17 at 16:45; Status UNV Vancomycin HCl 750 mg/Dextrose/ Sodium Chloride 250 ml @ 250 mls/hr Q24H IV Last administered on 05/05/17 18:01; Start 05/05/17 at 17:30; Stop 05/06/17 at 18:08; Status DC Ceftriaxone Sodium (Rocephin) 1 gm Q24H IVP Last administered on 05/06/17 16: 00; Start 05/05/17 at 16:00; Stop 05/07/17 at 10:07; Status DC Potassium Chloride (Klor-Con) 40 meq 1X ONCE PO Last administered on 20:56; Start 05/05/17 at 19:30; Stop 05/05/17 at 19:32; Status DC Potassium Chloride (Klor-Con) 40 meq 1X ONCE PO Last administered on 11:01; Start 05/06/17 at 11:00; Stop 05/06/17 at 11:01; Status DC Magnesium Sulfate/ Dextrose 100 ml @ 25 mls/hr 1X ONCE IV Last administered on 05/06/17 11:01; Start 05/06/17 at 11:00; Stop 05/06/17 at 14:59; Status DC Vancomycin HCl 750 mg/Sodium Chloride 250 ml @ 250 mls/hr Q12H IV Last administered on 05/07/17 05:42; Start 05/06/17 at 18:30; Stop 05/07/17 at 10 :07; Status DC Ondansetron HCl (Zofran Odt) 4 mg PRN Q6HRS PRN PO NAUSEA/VOMITING Last administered on 05/07/17 15:02; Start 05/07/17 at 09:00 Magnesium Oxide (Magnesium Oxide) 400 mg BID PO Last administered on 09:23; Start 05/07/17 at 09:30 Iohexol (Omnipaque 300 Mg/ml) 75 ml 1X ONCE IV Last administered on 14:43; Start 05/07/17 at 14:30; Stop 05/07/17 at 14:31; Status DC Info (Do NOT chart on this entry -- for MONITORING) 1 each PRN DAILY PRN MC SEE COMMENTS; Start 05/07/17 at 14:45; Stop 05/09/17 at 14:44 Amylase/Lipase/ Protease (Zenpep 5,000) 2 cap TIDWMEALS PO Last administered on 05/08/17 09:24; Start 05/07/17 at 17:00 Al Hydroxide/Mg Hydroxide (Mylanta Plus Xs) 30 ml PRN Q2HR PRN PO HEARTBURN / GAS; Start 05/07/17 at 16:45 Famotidine (Pepcid) 20 mg BID PO Last administered on 05/08/17 09:23; Start 05/07/17 at 21:00 Gadobutrol (Gadavist) 5 mmol 1X ONCE IV Last administered on 05/08/17t 08:58 ; Start 05/08/17 at 09:00; Stop 05/08/17 at 09:01; Status DC Active Scripts Active Toprol Xl (Metoprolol Succinate) 50 Mg Tab.er.24h 50 Mg PO DAILY Gabapentin 300 Mg Capsule 300 Mg PO BID Cefpodoxime Proxetil 200 Mg Tablet 200 Mg PO BID Reported Aspirin 81 Mg Tab.chew 1 Tab PO DAILY Levothyroxine Sodium 50 Mcg Tablet 1 Tab PO DAILY Atorvastatin Calcium 20 Mg Tablet 1 Tab PO HS Vitals/I & O Vital Sign - Last 24 Hours 05/07/17 05/07/17 05/07/17 05/07/17 11:00 15:00 19:00 20:30 Temp 97.9 97.9 98.0 97.9 97.9 98.0 Pulse 109 86 109 Resp 20 18 B/P (MAP) 111/69 (83) 121/69 (86) 107/71 (83) Pulse Ox 93 96 94 O2 Delivery Room Air Room Air Room Air Room Air 05/07/17 05/08/17 05/08/17 05/08/17 23:15 03:00 07:43 08:00 Temp 98.1 98.5 97.8 98.1 98.5 97.8 Pulse 102 109 99 Resp 18 B/P (MAP) 108/71 (83) 120/78 (92) 121/70 (87) Pulse Ox 94 96 97 O2 Delivery Room Air Room Air Room Air Room Air O2 Flow Rate 2.0 05/08/17 09:23 Pulse 99 B/P (MAP) 121/70 Intake and Output 05/07/17 05/07/17 05/08/17 14:59 22:59 06:59 Intake Total 250 ml 0 ml 450 ml Balance 250 ml 0 ml 450 ml GLO SPEARS MD May 08, 2017 09:44
--- NOTE | 2017-05-08 09:48 | PDOC ---
Provider Note Provider Note discharge summary addendum dictated # [id number] GLO SPEARS MD May 08, 2017 09:48
--- NOTE | 2017-05-08 10:15 | PDOC ---
Objective: Objective: Out of room for MRCP. Vital Signs: Vital Signs Date Time Temp Pulse Resp B/P (MAP) Pulse Ox O2 Delivery O2 Flow Rate FiO2 05/08/17 09:23 99 121/70 05/08/17 08:00 Room Air 2.0 05/08/17 07:43 97.8 18 97 97.8 Labs: Laboratory Tests Test 05/07/17 13:37 05/08/17 03:40 D-Dimer (Vanessa) 1.54 ug/mlFEU White Blood Count 5.9 x10^3/uL Red Blood Count 3.31 x10^6/uL Hemoglobin 10.1 g/dL Hematocrit 30.0 % Mean Corpuscular Volume 91 fL Mean Corpuscular Hemoglobin 30 pg Mean Corpuscular Hemoglobin Concent 34 g/dL Red Cell Distribution Width 20.0 % Platelet Count 418 x10^3/uL Neutrophils (%) (Auto) 73 % Lymphocytes (%) (Auto) 18 % Monocytes (%) (Auto) 9 % Eosinophils (%) (Auto) 0 % Basophils (%) (Auto) 0 % Neutrophils # (Auto) 4.3 x10^3uL Lymphocytes # (Auto) 1.1 x10^3/uL Monocytes # (Auto) 0.5 x10^3/uL Eosinophils # (Auto) 0.0 x10^3/uL Basophils # (Auto) 0.0 x10^3/uL Sodium Level 142 mmol/L Potassium Level 3.8 mmol/L Chloride Level 108 mmol/L Carbon Dioxide Level 26 mmol/L Anion Gap 8 Blood Urea Nitrogen 4 mg/dL Creatinine 0.6 mg/dL Estimated GFR (Cockcroft-Gault) 124.7 BUN/Creatinine Ratio 7 Glucose Level 83 mg/dL Calcium Level 7.6 mg/dL Total Bilirubin 0.3 mg/dL Aspartate Amino Transf (AST/SGOT) 28 U/L Alanine Aminotransferase (ALT/SGPT) 24 U/L Alkaline Phosphatase 166 U/L Total Protein 5.3 g/dL Albumin 2.0 g/dL Albumin/Globulin Ratio 0.6 Amylase Level 66 U/L Lipase 205 U/L Imaging: Abd US 05/07/17 Impression: Sludge in the gallbladder without sonographic evidence of acute cholecystitis. MRCP 05/08/17 PENDING PE: no exam A/P: Chest wall pain ?dyspepsia - on H2 odalis S/p colon resection for abscess (?diverticulitis) -unclear timing of last colonoscopy ACD -- Note DC orders - okay per GI. Will follow after MRCP. SHADI DELVALLE May 08, 2017 10:15
--- NOTE | 2017-05-08 10:22 | RAD ---
MRI and MRCP of the abdomen Indication: Epigastric pain. Technique: Axial in and out of phase, axial and coronal T2, axial T2 fat sat, axial T1 image sequence are obtained without IV contrast. After infusion of 5 mL of gadolinium base contrast, axial T1-weighted image sequences were obtained in multiple intervals. MRCP was obtained without IV contrast. Comparison: Same day ultrasound abdomen and CT abdomen and pelvis from 11/04/2015 Findings: Exam slightly limited due to breathing motion artifact. Heart is normal in size. No pericardial or pleural effusion. Liver is normal in morphology. Moderate diffuse hepatic steatosis. No focal hepatic lesion. Spleen is not enlarged and show no focal lesion. Sludge and gallstones in the gallbladder. Trace pericholecystic fluid. No gallbladder wall thickening. No intrahepatic biliary duct dilation. CBD is nondilated and show no filling defects. Intrinsic T1 signal is preserved in the pancreas. Main pancreatic duct is not dilated. No peripancreatic inflammatory changes. No focal pancreatic lesion. No evidence of pancreatic divisum. Adrenal glands show no nodularity. Subcentimeter simple cyst seen in the right kidney. No hydronephrosis. No suspicious renal lesion. No bowel obstruction. Umbilical hernia is redemonstrated containing omental fat and loops of small bowel. No enlarged retroperitoneal lymph nodes. The hepatic veins, portal vein, SMV, splenic vein, celiac artery, SMV, renal arteries and renal veins are patent. No enhancing bony lesions. Impression: Exam slightly limited due to breathing motion artifact. 1. Gallbladder sludge and stones. No choledocholithiasis. 2. Moderate hepatic steatosis. 3. Umbilical hernia containing loops of small bowel. No bowel obstruction.
--- NOTE | 2017-05-08 10:26 | DS ---
DATE OF DISCHARGE: 05/08/2017 ADDENDUM: She was kept another day. She had some chest wall pain reproduced by pressing on her chest and she had an ultrasound of her abdomen, which just showed gallbladder sludge with no acute cholecystitis. She was seen by Dr. Miller in consultation for GI and magnetic resonance cholangiopancreatography was done to evaluate some calcification in the gallbladder and possibly in the cystic duct and that is pending, but she is eating and denies any nausea and has no abdominal pain or tenderness, so we anticipate to transfer her to [facility] today with the same orders. GLO SPEARS MD DR: HERMES/serafin JOB#: [id number] / [id number]
[2017-05-08 10:48] VITALS: BP 112/71
--- NOTE | 2017-05-08 10:59 | PDOC ---
Infectious Disease Note Subjective Subjective Pt is comfortable Denies CP /palpitation since last night no f/c/n/v/d/gu symptoms/cough/ had heartburn last night ROS ROS GEN: Denies fevers, chills, sweats HEENT: Denies blurred vision, sore throat CV: Denies chest pain RESP: Denies shortness of air, cough GI: Denies n/v/d NEURO: Denies confusion, dizziness MSK: Denies weakness, joint pain/swelling Vital Sign Vital Signs Vital Signs Date Time Temp Pulse Resp B/P (MAP) Pulse Ox O2 Delivery O2 Flow Rate FiO2 05/08/17 10:48 97.9 89 18 112/71 (85) 96 Room Air 97.9 05/08/17 08:00 2.0 Physical Exam PHYSICAL EXAM GENERAL: axox3 HEENT: Pupils equally round. Oral mucosa is pink and moist. Poor dentition. LUNGS: Clear. HEART: Normal S1 and S2. ABDOMEN: Nondistended. Bowel sounds active. Soft and nontender. EXTREMITIES: No gross edema or cyanosis. SKIN: Without rash. NEUROLOGICAL: Alert and oriented. Mild left-sided weakness compared to the right. No arm drift or facial droop. Moves all extremities. Labs Lab Laboratory Tests Test 05/07/17 13:37 05/08/17 03:40 D-Dimer (Vanessa) 1.54 ug/mlFEU (0.00-0.50) White Blood Count 5.9 x10^3/uL (4.0-11.0) Red Blood Count 3.31 x10^6/uL (3.50-5.40) Hemoglobin 10.1 g/dL (12.0-15.5) Hematocrit 30.0 % (36.0-47.0) Mean Corpuscular Volume 91 fL (79-100) Mean Corpuscular Hemoglobin 30 pg (25-35) Mean Corpuscular Hemoglobin Concent 34 g/dL (31-37) Red Cell Distribution Width 20.0 % (11.5-14.5) Platelet Count 418 x10^3/uL (140-400) Neutrophils (%) (Auto) 73 % (31-73) Lymphocytes (%) (Auto) 18 % (24-48) Monocytes (%) (Auto) 9 % (0-9) Eosinophils (%) (Auto) 0 % (0-3) Basophils (%) (Auto) 0 % (0-3) Neutrophils # (Auto) 4.3 x10^3uL (1.8-7.7) Lymphocytes # (Auto) 1.1 x10^3/uL (1.0-4.8) Monocytes # (Auto) 0.5 x10^3/uL (0.0-1.1) Eosinophils # (Auto) 0.0 x10^3/uL (0.0-0.7) Basophils # (Auto) 0.0 x10^3/uL (0.0-0.2) Sodium Level 142 mmol/L (136-145) Potassium Level 3.8 mmol/L (3.5-5.1) Chloride Level 108 mmol/L (98-107) Carbon Dioxide Level 26 mmol/L (21-32) Anion Gap 8 (6-14) Blood Urea Nitrogen 4 mg/dL (7-20) Creatinine 0.6 mg/dL (0.6-1.0) Estimated GFR (Cockcroft-Gault) 124.7 BUN/Creatinine Ratio 7 (6-20) Glucose Level 83 mg/dL (70-99) Calcium Level 7.6 mg/dL (8.5-10.1) Total Bilirubin 0.3 mg/dL (0.2-1.0) Aspartate Amino Transf (AST/SGOT) 28 U/L (15-37) Alanine Aminotransferase (ALT/SGPT) 24 U/L (14-59) Alkaline Phosphatase 166 U/L (46-116) Total Protein 5.3 g/dL (6.4-8.2) Albumin 2.0 g/dL (3.4-5.0) Albumin/Globulin Ratio 0.6 (1.0-1.7) Amylase Level 66 U/L (25-115) Lipase 205 U/L (73-393) Micro reviewed BC neg Objective Assessment Lactic acidosis - improved PCN allergy - hives. Tolerated Rocephin Chest pain w/ run V-tach,w/un eg h/o CVA w/ late effects with spastic left-sided hemiparesis HTN Peripheral neuropathy Hypothyroidism heartburn improving Plan Plan of Care monitor off antibiotics BC neg so far Supportive care RAMU NOEL MD May 08, 2017 10:59
[2017-05-08 14:53] VITALS: BP 120/67
--- NOTE | 2017-05-08 16:18 | PDOC ---
PROGRESS NOTES Assessment Assessment Left side numbness and tingling. Weakness. 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 Iron deficiency. Obesity. No evidence of acute CVA this time. RECOMMENDATIONS/PLAN: Continue ASA 325 mg daily. Continue Statin HS. Treat medical diseases. Evaluate iron deficiency by medical team. FU with PCP. Past Medical History Cardiovascular: HTN, Hyperlipidemia CENTRAL NERVOUS SYSTEM: CVA Musculoskeletal: Osteoarthritis Endocrine: Hypothyroidism Family History No Significant Social History ALCOHOL: none Lives: with Family ALLERGY: Reviewed. MEDICATIONS: Refer to MAR REVIEW OF SYSTEMS: Constitutional: No malnutrition, weight loss, cachexia. Head: No recent traumatic brain or head injury. Skin: No edema, or rash. Ear: No infection. Eyes: No vision loss, or diplopia. Nose: No bleeding or purulent discharges. Hearing: No hearing decrease. H Neck: No injury. Breast: No history of cancer, masses, or discharges. Cardiac: TN, HLD Pulmonary: NO COPD. GI: No GI Ulcer, GI bleeding Urinary/genital: UTI. Endocrine: Obesity. Skeletomuscular: No muscular atrophy, deformity. Neurological: see HP. Psychiatric: Denies drug use/abuse. Otherwise, not [id number] review of systems. PHYSICAL EXAMINATION: General appearance in no acute distress. HEENT: Normocephalic and nontraumatic. Eyes, nose, ears, and throat are unremarkable. Hearing decrease. Neck is supple. No lymphadenopathy. No bruits are heard over the carotid artery. No Crepitus. Cardiovascular: S1, S2, regular rate and rhythm. Pulmonary: Clear to auscultation bilaterally. Abdomen: Bowel sounds are positive. Abdomen is soft, nontender, and nondistended. Extremities: No rash, lesions, or edema. No restriction of range of motion NEUROLOGICAL EXAMINATION: Alert. Oriented to time, place and person. PERRL. EOMI. CN: no focal findings. Muscle tone: within normal. Muscle strength: 5- left UE, the rest 5 DTR: 2 Plantar reflex: Flexor l response bilaterally Gait: not examined in bed. Sensory exam: no abnormal findings. No cerebellar signs elicited. F-T-N test fine. Objective Objective Vital Signs Date Time Temp Pulse Resp B/P (MAP) Pulse Ox O2 Delivery O2 Flow Rate FiO2 05/08/17 14:53 98.5 98 18 120/67 (84) 98 Room Air 98.5 12/19/17 08:00 2.0 Intake and Output 05/08/17 07:00 Intake Total 700 ml Balance 700 ml Intake Oral 700 ml # Voids 3 # Bowel Movements 1 Vitals Signs Vitals VS - Last 72 Hours, by Label Date Time Temp Pulse Resp B/P (MAP) Pulse Ox O2 Delivery O2 Flow Rate FiO2 05/08/17 14:53 98.5 98 18 120/67 (84) 98 Room Air 98.5 05/08/17 10:48 97.9 89 18 112/71 (85) 96 Room Air 97.9 05/08/17 09:23 99 121/70 05/08/17 08:00 Room Air 2.0 05/08/17 07:43 97.8 99 18 121/70 (87) 97 Room Air 97.8 05/08/17 03:00 98.5 109 17 120/78 (92) 96 Room Air 98.5 05/07/17 23:15 98.1 102 16 108/71 (83) 94 Room Air 98.1 05/07/17 20:30 Room Air 05/07/17 19:00 98.0 109 18 107/71 (83) 94 Room Air 98.0 05/07/17 15:00 97.9 86 20 121/69 (86) 96 Room Air 97.9 05/07/17 11:00 97.9 109 20 111/69 (83) 93 Room Air 97.9 05/07/17 08:29 101 112/68 05/07/17 07:56 Room Air 05/07/17 07:00 97.6 93 20 112/68 (83) 92 Room Air 97.6 Laboratory Laboratory Laboratory Tests Test 05/08/17 03:40 White Blood Count 5.9 x10^3/uL (4.0-11.0) Red Blood Count 3.31 x10^6/uL (3.50-5.40) Hemoglobin 10.1 g/dL (12.0-15.5) Hematocrit 30.0 % (36.0-47.0) Mean Corpuscular Volume 91 fL (79-100) Mean Corpuscular Hemoglobin 30 pg (25-35) Mean Corpuscular Hemoglobin Concent 34 g/dL (31-37) Red Cell Distribution Width 20.0 % (11.5-14.5) Platelet Count 418 x10^3/uL (140-400) Neutrophils (%) (Auto) 73 % (31-73) Lymphocytes (%) (Auto) 18 % (24-48) Monocytes (%) (Auto) 9 % (0-9) Eosinophils (%) (Auto) 0 % (0-3) Basophils (%) (Auto) 0 % (0-3) Neutrophils # (Auto) 4.3 x10^3uL (1.8-7.7) Lymphocytes # (Auto) 1.1 x10^3/uL (1.0-4.8) Monocytes # (Auto) 0.5 x10^3/uL (0.0-1.1) Eosinophils # (Auto) 0.0 x10^3/uL (0.0-0.7) Basophils # (Auto) 0.0 x10^3/uL (0.0-0.2) Sodium Level 142 mmol/L (136-145) Potassium Level 3.8 mmol/L (3.5-5.1) Chloride Level 108 mmol/L (98-107) Carbon Dioxide Level 26 mmol/L (21-32) Anion Gap 8 (6-14) Blood Urea Nitrogen 4 mg/dL (7-20) Creatinine 0.6 mg/dL (0.6-1.0) Estimated GFR (Cockcroft-Gault) 124.7 BUN/Creatinine Ratio 7 (6-20) Glucose Level 83 mg/dL (70-99) Calcium Level 7.6 mg/dL (8.5-10.1) Total Bilirubin 0.3 mg/dL (0.2-1.0) Aspartate Amino Transf (AST/SGOT) 28 U/L (15-37) Alanine Aminotransferase (ALT/SGPT) 24 U/L (14-59) Alkaline Phosphatase 166 U/L (46-116) Total Protein 5.3 g/dL (6.4-8.2) Albumin 2.0 g/dL (3.4-5.0) Albumin/Globulin Ratio 0.6 (1.0-1.7) Amylase Level 66 U/L (25-115) Lipase 205 U/L (73-393) Microbiology 05/04/17 Blood Culture - Preliminary, Resulted NO GROWTH AFTER 4 DAYS Medication Medications Current Medications Al Hydroxide/Mg Hydroxide (Mylanta Plus Xs) 30 ml PRN Q2HR PRN PO HEARTBURN / GAS; Start 05/07/17 at 16:45 Amylase/Lipase/ Protease (Zenpep 5,000) 2 cap TIDWMEALS PO Last administered on 05/08/17 12:39; Start 05/07/17 at 17:00 Famotidine (Pepcid) 20 mg BID PO Last administered on 05/08/17 09:23; Start 05/07/17 at 21:00 Gadobutrol (Gadavist) 5 mmol 1X ONCE IV Last administered on 05/08/17 08:58 ; Start 05/08/17 at 09:00; Stop 05/08/17 at 09:01; Status DC Comment Review of Relevant I have reviewed the following items maryam (where applicable) has been applied. JOHNNY ROSALES MD May 08, 2017 16:18
== END 2017-05-08 16:32 | DRG 69 ==
LOC: ER 15:04 → ED HOLD 17:18 → 6 SOUTH 20:09 → 2 NORTH 05-05 21:31 → 6 SOUTH 05-07 18:06
PROVIDERS: ADMIT Internal Medicine; ATTEND Internal Medicine
DX: G45.9 Transient cerebral ischemic attack, unspecified (principal); I47.2 Ventricular tachycardia; E83.42 Hypomagnesemia; E87.2 Acidosis; I69.354 Hemiplegia and hemiparesis following cerebral infarction affecting left non-dominant side; D50.9 Iron deficiency anemia, unspecified; E03.9 Hypothyroidism, unspecified; E66.9 Obesity, unspecified; E78.00 Pure hypercholesterolemia, unspecified; E78.5 Hyperlipidemia, unspecified; E87.6 Hypokalemia; D63.8 Anemia in other chronic diseases classified elsewhere; G62.9 Polyneuropathy, unspecified; I10 Essential (primary) hypertension; K21.9 Gastro-esophageal reflux disease without esophagitis; K43.9 Ventral hernia without obstruction or gangrene; K82.8 Other specified diseases of gallbladder; M19.90 Unspecified osteoarthritis, unspecified site; F32.9 Major depressive disorder, single episode, unspecified; F41.9 Anxiety disorder, unspecified; Z79.82 Long term (current) use of aspirin; Z79.899 Other long term (current) drug therapy; Z90.49 Acquired absence of other specified parts of digestive tract; Z88.0 Allergy status to penicillin; Z91.018 Allergy to other foods; Z68.24 Body mass index [BMI] 24.0-24.9, adult; Z87.891 Personal history of nicotine dependence; Z23 Encounter for immunization; Z83.3 Family history of diabetes mellitus; Z82.5 Family history of asthma and other chronic lower respiratory diseases; Z82.49 Family history of ischemic heart disease and other diseases of the circulatory system
CPT/HCPCS: 51701; 99285; C8929; 36415; 70496; 70498; 70551; 71010; 71275; 76700; 80048; 80053; 80202; 81001; 82150; 82274; 82310; 82607; 82728; 82962; 83540; 83550; 83605; 83690; 83735; 84132; 84443; 84484; 85025; 85379; 85610; 87040; 90686; 93005; 93880; 96361; 96365; 96366; 96367; A9585; J0690; J0696; J2405; J3010; J3370; J3475; J7030; Q0162; Q9967

== ENCOUNTER → 2017-06-26 | Day surgery (SDC) | payer MEDICARE ==
[~2017-06-26] MED LIST changes: -AMLO5TAB2 PO; -ATOR20TA58 PO; -CEFP200T PO; -GABA-585 PO; -GABA-586 PO; +HYDROmorphone 2 MG/ML VIAL IV; +IV RINGERS,LACTATED 1000ML 1,000 ML IV; -LEVO50TA5 PO; +LIDOCAINE 1% PF 2 ML VIAL. ID; +LIDOCAINE 2% PF Vial for OR 5 ML VIAL.; -LISI10TA2 PO; -LISI40TA PO; -MELO7.5T29 PO; -METO-269 PO; +MORPHINE SULFATE 2 MG/ML DISP.SYRIN. IV; +ONDANSETRON PF 4 MG/2 ML VIAL. IV; -OXYC-317 PO; -OXYC-323 PO; +PROCHLORPERAZINE 10 MG/2 ML VIAL. IV; +PROPOFOL 40 ML IV; -SENN-37 PO; +fentaNYL PF VIAL 100 MCG/2 ML VIAL IV
== END | disposition home or self-care (01) ==
LOC: SURG 07:57
DX: Z12.11 Encounter for screening for malignant neoplasm of colon (principal); Z86.69 Personal history of other diseases of the nervous system and sense organs; E03.9 Hypothyroidism, unspecified; F41.9 Anxiety disorder, unspecified; F32.9 Major depressive disorder, single episode, unspecified; E78.00 Pure hypercholesterolemia, unspecified; I10 Essential (primary) hypertension; K21.9 Gastro-esophageal reflux disease without esophagitis; Z98.51 Tubal ligation status; Z98.890 Other specified postprocedural states; Z86.73 Personal history of transient ischemic attack (TIA), and cerebral infarction without residual deficits; Z87.440 Personal history of urinary (tract) infections; Z86.39 Personal history of other endocrine, nutritional and metabolic disease; Z87.39 Personal history of other diseases of the musculoskeletal system and connective tissue; Z87.891 Personal history of nicotine dependence; Z88.0 Allergy status to penicillin; Z91.018 Allergy to other foods
CPT/HCPCS: G0121; J2704